=== PATIENT | female | born 1940 | race Caucasian/White ===

== ENCOUNTER 2019-05-20 11:45 | Outpatient (RCR) | payer SELFPAY | END 2019-06-12 23:59 | disposition home or self-care (01) | LOC: CR 11:45 | PROVIDERS: Family Provider Family Medicine; PCP Family Medicine; Referring Provider Internal Medicine Cardiovascular Disease; Visit Provider Internal Medicine Cardiovascular Disease | DX: Z76.89 Persons encountering health services in other specified circumstances (principal) ==

== ENCOUNTER 2019-12-02 08:19 | Emergency (ER) | payer MEDICARE, OTHER, SELFPAY ==
[2019-12-02 08:23] VITALS: BP 135/90; PULSE 96; RESP 18; TEMP 36.9; O2SAT 96; BMI 25.8
--- NOTE | 2019-12-02 08:25 | ED_ITS ---
HPI - Nausea/Vomiting/Diarrhea General: Chief complaint: Nausea/Vomiting/Diarrhea Stated complaint: NAUSEA Time Seen by Provider: 12/02/19 08:23 Source: patient Mode of arrival: wheelchair Limitations: no limitations History of Present Illness: HPI Narrative: Patient is a 79-year-old female here with a complaint of nausea over the past 3 to 4 days. Patient tells me she was initially placed on atorvastatin back in August. She tells me after starting this medication she began having symptoms of nausea and diarrhea so she stopped this medication on her own. Patient tells me recently they refilled this medication and she decided to try it again so began taking it again a few days ago. She tells me her same symptoms of nausea and diarrhea have returned. She is also complaining of shortness of breath with exertion that she has noticed over the last few days as well as shortness of breath with lying flat. Patient does have a history of nonischemic cardiomyopathy. She was recently seen by her environmental resource specialist Dr. Vergara in September for similar symptoms. Patient's last echocardiogram was performed in September 2018 which showed an increase in her EF from 15 to 37% MD elicited complaint: nausea Associated nausea: Yes Associated symtoms: Reports nausea; Denies change in vision, chest pain, dysuria, headache(s), palpitations or syncope Review of Systems Const: Denies: fever(s), chills or body aches Eyes: Denies: change in vision or blurry vision Card: Reports: dyspnea on exertion and orthopnea; Denies: chest pain, palpitations, irregular heart rhythm, edema, swelling of feet/ankles, lightheadedness, syncope, pre-syncope, leg pain with exertion or acrocyanosis Resp: Reports: dyspnea (with exertion ); Denies: productive cough, non-productive cough, pain on inspiration, hemoptysis or chest congestion GI: Reports: nausea and diarrhea; Denies: abdominal pain, vomiting, hematemesis, coffee ground emesis, dysphagia, heartburn, early satiety, pain on defecation, change in stool character, hematochezia, melena or white/light colored stool : Denies: flank pain, difficulty voiding, dysuria, urinary frequency, urinary urgency or urinary hesitancy Musc: Denies: neck pain, back pain or joint pain Skin/Breast: Denies: rash Neuro: Denies: headache(s), numbness in extremities, weakness in extremities or sensory changes PFSH ED PFSH: Medical History (Updated 12/02/19 @ 10:49 by SAMANTA Rivas) Dilated cardiomyopathy Hypotension Family History Other Diabetes Stroke Social History Smoking and tobacco status: never smoked Alcohol intake: never Physical Exam Const: COMMON NORMALS: no acute distress, patient oriented x3, no limitations, alert and well nourished HENMT: COMMON NORMALS: normocephalic and atraumatic HEAD & SCALP: normocephalic and atraumatic Chest: COMMONS NORMALS: normal inspection of the chest and normal palpation of entire chest wall Resp: COMMON NORMALS: normal respiratory effort and clear to auscultation bilaterally AUSCULTATION: clear to auscultation bilaterally Cardio: COMMON NORMALS: regular rate and regular rhythm RATE: regular rate RHYTHM: regular rhythm GI: COMMON NORMALS: Normal to inspection, nondistended, normoactive bowel sounds present, Soft to palpation, No hepatosplenomegaly present and no masses PALPATION: Yes Soft to palpation, Yes Tenderness to palpation present (GI) (mild epigastric ) and Yes No hepatosplenomegaly present Extremity: COMMON NORMALS: capillary refill normal, no clubbing, cyanosis or edema and no calf tenderness Neuro: COMMON NORMALS: patient oriented x3 SENSORIUM/ORIENTATION: Yes alert Skin: COMMON NORMALS: no rashes or lesions noted GENERAL SKIN EXAM: no rashes or lesions noted Course Vital Signs: Vital signs: Vital Signs Temperature 98.4 F 12/02/19 08:23 Pulse Rate 96 12/02/19 08:23 Respiratory Rate 18 12/02/19 08:23 Blood Pressure 135/90 12/02/19 08:23 Pulse Oximetry 96 12/02/19 08:23 MDM - Nausea/Vomiting/Diarrhea MDM Narrative: Medical decision making narrative: Patient reports her nausea is completely alleviated after IV Zofran. She is lying almost completely flat in her room in no acute distress. Patient's labs today overall look fairly benign apart from her BNP at 5656 which is much higher than her baseline which is roughly 8504-[address]. Sp[address]. Back and we will treat patient with 40 mg IV Lasix here and increase her daily Lasix and potassium at home over the next 3 days. She needs to follow-up with Dr. Vergara's office by the end of the week or early next week. She also needs to speak to them about her side effects from the atorvastatin of nausea and diarrhea. Unfortunately these are common side effects of this medication. Lab Data: Labs: Lab Results 12/02/19 12/02/19 12/02/19 Range/Units 08:38 08:38 08:38 WBC 8.6 (4.0-10.0) 10^3/ uL RBC 4.47 (4.1-5.3) 10^6/u L Hgb 12.7 (11.5-15.3) g/dL Hct 38.9 (37.0-47.0) % MCV 87.0 (81-99) fL MCH 28.4 (28.0-34.0) pg MCHC 32.6 (30.0-36.0) g/dL RDW 14.9 (12.1-15.1) % Plt Count 305 (130-400) 10^3/c mm MPV 9.9 (7.4-10.4) fL Neut % (Auto) 77.9 % Lymph % (Auto) 12.9 % [place] % (Auto) 5.3 % Eos % (Auto) 2.9 % Baso % (Auto) 0.7 % Neut # (Auto) 6.69 (1.8-7.7) 10^3/u L Lymph # (Auto) 1.1 (0.8-4.8) 10^3/u L [place] # (Auto) 0.5 (0.2-0.9) 10^3/u L Eos # (Auto) 0.3 (0.0-0.8) 10^3/u L Baso # (Auto) 0.1 (0.0-0.1) 10^3/u L Nucleated RBC % (a uto) 0 % Nucleated RBCs # 0.0 /100WBC Sodium 134 L (136-145) mmol/L Potassium 4.4 (3.5-5.1) mmol/L Chloride 99 (98-107) mmol/L Carbon Dioxide 21 L (22-29) mmol/L Anion Gap 18.4 (5-19) BUN 20 (8-23) mg/dL Creatinine 0.9 (0.5-0.9) mg/dL GFR Calculation Not Reportable Glucose 165 H (65-115) mg/dL Calculated Osmolal ity 278 L (285-295) mOsm/k g Calcium 9.2 (8.5-10.5) mg/dL Total Bilirubin 0.9 (0.15-1.2) mg/dL AST 30 (0-32) U/L ALT 26 (0-33) U/L Alkaline Phosphata se 96 (35-105) IU/L Troponin T Baselin e 9 (0-10) ng/L Troponin T 120 Min [place] (0-10) ng/L Delta Troponin T (0-10) ABS# NT-Pro-B Natriuret Pep 5656 H (0-450) pg/mL Total Protein 7.5 (6.6-8.7) g/dL Albumin 4.4 (3.5-5.2) g/dL Globulin 3.1 (1.3-4.6) g/dL Lipase 29 (13-60) U/L 12/02/19 Range/Units 10:30 WBC (4.0-10.0) 10^3/ uL RBC (4.1-5.3) 10^6/u L Hgb (11.5-15.3) g/dL Hct (37.0-47.0) % MCV (81-99) fL MCH (28.0-34.0) pg MCHC (30.0-36.0) g/dL RDW (12.1-15.1) % Plt Count (130-400) 10^3/c mm MPV (7.4-10.4) fL Neut % (Auto) % Lymph % (Auto) % [place] % (Auto) % Eos % (Auto) % Baso % (Auto) % Neut # (Auto) (1.8-7.7) 10^3/u L Lymph # (Auto) (0.8-4.8) 10^3/u L [place] # (Auto) (0.2-0.9) 10^3/u L Eos # (Auto) (0.0-0.8) 10^3/u L Baso # (Auto) (0.0-0.1) 10^3/u L Nucleated RBC % (a uto) % Nucleated RBCs # /100WBC Sodium (136-145) mmol/L Potassium (3.5-5.1) mmol/L Chloride (98-107) mmol/L Carbon Dioxide (22-29) mmol/L Anion Gap (5-19) BUN (8-23) mg/dL Creatinine (0.5-0.9) mg/dL GFR Calculation Glucose (65-115) mg/dL Calculated Osmolal ity (285-295) mOsm/k g Calcium (8.5-10.5) mg/dL Total Bilirubin (0.15-1.2) mg/dL AST (0-32) U/L ALT (0-33) U/L Alkaline Phosphata se (35-105) IU/L Troponin T Baselin e (0-10) ng/L Troponin T 120 Min [place] 8.80 (0-10) ng/L Delta Troponin T -0.20 L (0-10) ABS# NT-Pro-B Natriuret Pep (0-450) pg/mL Total Protein (6.6-8.7) g/dL Albumin (3.5-5.2) g/dL Globulin (1.3-4.6) g/dL Lipase (13-60) U/L Imaging Data^: CXR: Radiologist's impression: [address] [address] XRay Report Signed Patient: Phuong Maya Unit #: [id number] : 1940 Age/Sex: 79 / F ADM Date: 12/02/19 Loc: ER Room/Bed: Attending Dr: Ordering Provider/Ordering MD: Peyton Taylor Date of Service: 12/02/19 Procedure(s): XR chest 1V portable [id number] Accession Number(s): [id number] Report Number: [id number] WS: [id number] PORTABLE CHEST HISTORY: chest pain COMPARISON: 08/29/2018 Moderate pulmonary hyperexpansion. Coarse thickened interstitial markings throughout both lungs. Stable RIGHT upper lobe benign granuloma. No pleural effusion or pneumothorax. Cardiac size: Mildly enlarged cardiac silhouette. Mediastinum/Aorta: Mild atherosclerosis aorta. Osteopenia. XR/XR chest 1V portable [id number] IMPRESSION: 1. Chronic emphysema with new superimposed interstitial thickening. Probably pneumonitis or mild CHF. 2. Mild cardiomegaly. Dictated By: Clare Bustamante DO Signed By: Clare Bustamante DO Signed Date/Time: 12/02/19852 DD/ 0 Discharge Plan Discharge Patient Disposition: Home, Self-Care Clinical Impression: Acute on chronic systolic CHF (congestive heart failure) Condition: Stable Prescriptions: No Action furosemide 40 mg tablet 40 mg PO DAILY RF: 0 potassium chloride 10 mEq tablet extended release 10 meq PO DAILY RF: 0 levothyroxine 75 mcg tablet 75 mcg PO DAILY RF: 0 aspirin [Adult Low Dose Aspirin] 81 mg tablet,delayed release (DR/EC) 81 mg PO DAILY RF: 0 escitalopram oxalate 5 mg tablet 5 mg PO DAILY RF: 0 multivitamin Tablet 1 tab PO DAILY RF: 0 cholecalciferol (vitamin D3) 25 mcg (1,000 unit) capsule 25 mcg PO DAILY RF: 0 Probiotic 3 billion cell capsule 3,000 mmu cells PO DAILY RF: 0 magnesium oxide,aspartate,citr 400 mg magnesium capsule 400 mg PO BID RF: 0 cetirizine [Zyrtec] 10 mg tablet 10 mg PO DAILY RF: 0 Estroven 155 mg capsule 1 cap PO DAILY PRN (Reason: menopause) RF: 0 carvedilol 3.125 mg tablet 3.125 mg PO BID 90 Days Qty: 180 RF: 3 zinc 50 mg Tablet 50 mg PO DAILY RF: 0 Discharge Orders: Discharge Order (Routine); Ordered 12/02/19 Ordered By: Peyton Taylor Referrals: Camden Fletcher MD [Primary Care Provider] - Activity Restrictions/Additional Instructions: As discussed you need to take your Lasix 40 mg twice daily instead of daily over the next 3 days. You also need to be taking your potassium tablets twice daily as well x 3 days instead of one. Please contact Dr. Vergara's office as soon as possible for follow-up. We will also have our case sealer try to work on this appointment. You need to return to the emergency department for worsening shortness of breath, difficulty breathing, fevers, chest pains, any other concerns you may have. Coding Level of Care Code ED Copy Holder for Chg Fwd Exam Comprehensive
--- NOTE | 2019-12-02 08:35 | XR_ITS ---
WS: [id number] PORTABLE CHEST HISTORY: chest pain COMPARISON: 08/29/2018 Moderate pulmonary hyperexpansion. Coarse thickened interstitial markings throughout both lungs. Stab le RIGHT upper lobe benign granuloma. No pleural effusion or pneumothorax. Cardiac size: Mildly enlarged cardiac silhouette. Mediastinum/Aorta: Mild atherosclerosis aorta. Osteopenia. XR/XR chest 1V portable [id number] IMPRESSION: 1. Chronic emphysema with new superimposed interstitial thickening. Probably p neumonitis or mild CHF. 2. Mild cardiomegaly.
--- NOTE | 2019-12-02 08:35 | ECG_ITS ---
[facility] Test Date: 2019-12-02 Pat Name: Phuong Maya Department: Room: Gender: Female Auxiliary Equipment Operator: : 1940 Requested By: Peyton Taylor Order Number: [id number] Darnell MD: Macario Peraza M.D. Measurements Intervals [place] Rate: 84 P: 32 AL: 162 QRS: -39 QRSD: 158 T: 92 QT: 435 QTc: 515 Interpretive Statements ELECTRONIC VENTRICULAR PACEMAKER ABNORMAL RHYTHM ECG Compared to ECG 08/15/2018 04:35:33 Sinus rhythm no longer present Atrial abnormality no longer present Left-axis deviation no longer present Left bundle-branch block no longer present Electronically Signed On 12-02-2019 20:30:27 CDT by Macario Peraza M.D. [id number] ceron
[2019-12-02] MEDS: ondansetron 2 mg/ML SDV 2 mL 4 MG IVP (08:45)
[2019-12-02 08:46] LABS: Basophils # 0.1 10^3/uL (0.0-0.1); Basophils % 0.7 %; Eosinophils # 0.3 10^3/uL (0.0-0.8); Eosinophils % 2.9 %; Hematocrit 38.9 % (37.0-47.0); Hemoglobin 12.7 g/dL (11.5-15.3); Lymphocytes # 1.1 10^3/uL (0.8-4.8); Lymphocytes % 12.9 %; Mean Corpuscular HGB Conc 32.6 g/dL (30.0-36.0); Mean Corpuscular Hemoglobin 28.4 pg (28.0-34.0); Mean Platelet Volume 9.9 fL (7.4-10.4); Monocytes # 0.5 10^3/uL (0.2-0.9); Monocytes % 5.3 %; Neutrophils # 6.69 10^3/uL (1.8-7.7); Neutrophils % 77.9 %; Nucleated Red Blood Cells % 0 %; Platelet Count 305 10^3/cmm (130-400); Red Blood Count 4.47 10^6/uL (4.1-5.3); Red Cell Distribution Width 14.9 % (12.1-15.1); White Blood Count 8.6 10^3/uL (4.0-10.0)
[2019-12-02 09:05] LABS: Troponin(5th) Baseline 9 ng/L (0-10)
[2019-12-02 09:15] LABS: Alanine Aminotransferase 26 U/L (0-33); Albumin Level 4.4 g/dL (3.5-5.2); Alkaline Phosphatase 96 IU/L (35-105); Anion Gap 18.4 (5-19); Aspartate Amino Transferase 30 U/L (0-32); Blood Urea Nitrogen 20 mg/dL (8-23); Calcium 9.2 mg/dL (8.5-10.5); Carbon Dioxide 21 mmol/L (22-29); Chloride 99 mmol/L (98-107); Creatinine Clr Calc Pharmacy 47.8724; Globulin 3.1 g/dL (1.3-4.6); Glucose 165 mg/dL (65-115); Lipase 29 U/L (13-60); NT Pro B Type Natriuretic Pept 5656 pg/mL (0-450); Osmolality Calculated 278 mOsm/kg (285-295); Potassium 4.4 mmol/L (3.5-5.1); Sodium 134 mmol/L (136-145); Total Bilirubin 0.9 mg/dL (0.15-1.2); Total Protein 7.5 g/dL (6.6-8.7)
[2019-12-02] MEDS: FUROsemide 10 mg/mL SDV 4mL 40 MG IVP (10:56)
--- NOTE | 2019-12-02 11:03 | DCPLANNER ---
manager heavy duty was asked to schedule a follow up appointment for patient with [facility]. manager heavy duty called [facility], spoke with Stacey, a follow up appointment was scheduled for , December 03, 2019 at 2:[address] Vergara. manager heavy duty informed patient of the scheduled appointment.
[2019-12-02 11:10] VITALS: BP 109/66; PULSE 72; RESP 18; O2SAT 95
--- NOTE | 2019-12-04 08:02 | DCPLANNER ---
Patient did attend appointment scheduled for 12.03.19 with [facility].
== END 2019-12-02 11:11 | disposition home or self-care (01) ==
PROVIDERS: Emergency Provider Physician Assistant; PCP Family Medicine
DX: I11.0 Hypertensive heart disease with heart failure (principal); I50.23 Acute on chronic systolic (congestive) heart failure; Z79.82 Long term (current) use of aspirin; I70.0 Atherosclerosis of aorta
CPT/HCPCS: 12345; 36415; 71045; 80053; 83690; 83880; 84484; 85025; 93005; 96374; 96375; 99283; 99284; J1940; J2405

== ENCOUNTER 2019-12-06 06:20 | Emergency (ER) | payer MEDICARE, OTHER, SELFPAY ==
[2019-12-06 06:26] VITALS: BP 115/79; PULSE 86; RESP 16; TEMP 36.6; O2SAT 97; BMI 26.5
[2019-12-06 06:56] VITALS: BP 123/81; PULSE 84; RESP 18; O2SAT 96
--- NOTE | 2019-12-06 06:58 | CTR_ITS ---
PROCEDURE INFORMATION: Exam: CT Abdomen And Pelvis With Contrast Exam date and time: 12/06/2019 7:27 AM Age: 79 years old Clinical indication: Nausea and vomiting and other: Diarrhea; Prior surgery; Surgery date: 6+ months; Surgery type: Gb, appy, hyster; Additional info: Abd pain TECHNIQUE: Imaging protocol: Computed tomography of the abdomen and pelvis with intravenous contrast. Radiation optimization: All CT scans at this facility use at least one of these dose optimization techniques: automated exposure control; mA and/or kV adjustment per patient size (includes targeted exams where dose is matched to clinical indication); or iterative reconstruction. Contrast material: VISIPAQUE 320; Contrast volume: 95 ml; Contrast route: INTRAVENOUS (IV); COMPARISON: CT abdomen pelvis w con* [id number] 08/29/2018 7:10 AM RADIATION DOSE METRICS: Total DLP (mGy-cm): 587.57 FINDINGS: Pleural space: Small pleural effusions. Heart: Cardiomegaly. Mediastinal space: Small hiatal hernia. Liver: No mass. Hepatomegaly. Gallbladder and bile ducts: Status post cholecystectomy. Pancreas: No ductal dilation. Spleen: 12mm hypodensity in the spleen. Adrenals: No mass. Kidneys and ureters: No hydronephrosis. Stomach and bowel: Colonic diverticulosis without findings diverticulitis. Appendix: The appendix is not identified. Intraperitoneal space: Small amount of free fluid. Vasculature: No abdominal aortic aneurysm. Lymph nodes: No enlarged lymph nodes. Bladder: Unremarkable as visualized. Reproductive: Status post hysterectomy. Bones/joints: Unremarkable. No acute fracture. Soft tissues: Unremarkable. CT/CT abdomen pelvis w con* [id number] IMPRESSION: No acute findings. Radiation Dose CTDIVOL = (mGy): DLP = 587.57 (mGy-cm)
[2019-12-06 07:02] LABS: Basophils # 0.1 10^3/uL (0.0-0.1); Basophils % 0.7 %; Eosinophils # 0.3 10^3/uL (0.0-0.8); Eosinophils % 3.1 %; Hematocrit 39.4 % (37.0-47.0); Hemoglobin 12.8 g/dL (11.5-15.3); Lymphocytes # 1.1 10^3/uL (0.8-4.8); Lymphocytes % 13.2 %; Mean Corpuscular HGB Conc 32.5 g/dL (30.0-36.0); Mean Corpuscular Hemoglobin 28.5 pg (28.0-34.0); Mean Corpuscular Volume 87.8 fL (81-99); Mean Platelet Volume 10.7 fL (7.4-10.4); Monocytes # 0.4 10^3/uL (0.2-0.9); Neutrophils # 6.47 10^3/uL (1.8-7.7); Neutrophils % 77.8 %; Nucleated Red Blood Cells % 0 %; Platelet Count 351 10^3/cmm (130-400); Red Blood Count 4.49 10^6/uL (4.1-5.3); Red Cell Distribution Width 15.9 % (12.1-15.1); White Blood Count 8.3 10^3/uL (4.0-10.0)
[2019-12-06 07:18] VITALS: RESP 15
[2019-12-06] MEDS: lidocaine 2% viscous 15 ML, aluminum-mag hydrox-simethicon 30 ML, sucralfate oral liq 1 GM PO (07:18)
[2019-12-06] MEDS: morphine 4 mg/mL SDV 1 mL IVP (07:18)
[2019-12-06] MEDS: ondansetron 2 mg/ML SDV 2 mL 4 MG IVP (07:18)
[2019-12-06] MEDS: ketorolac 30 mg/mL INJ IVP (07:18)
[2019-12-06 07:21] LABS: Alanine Aminotransferase 32 U/L (0-33); Albumin Level 4.6 g/dL (3.5-5.2); Alkaline Phosphatase 88 IU/L (35-105); Anion Gap 17.9 (5-19); Aspartate Amino Transferase 27 U/L (0-32); Blood Urea Nitrogen 21 mg/dL (8-23); Calcium 9.8 mg/dL (8.5-10.5); Carbon Dioxide 24 mmol/L (22-29); Chloride 97 mmol/L (98-107); Globulin 2.4 g/dL (1.3-4.6); Glucose 142 mg/dL (65-115); Lipase 22 U/L (13-60); NT Pro B Type Natriuretic Pept 6103 pg/mL (0-450); Osmolality Calculated 279 mOsm/kg (285-295); Potassium 3.9 mmol/L (3.5-5.1); Sodium 135 mmol/L (136-145)
--- NOTE | 2019-12-06 07:34 | W.ED.NAVMDI ---
HPI - Nausea/Vomiting/Diarrhea General: Chief complaint: Nausea/Vomiting/Diarrhea Stated complaint: N/V Time Seen by Provider: 12/06/19 06:35 History of Present Illness: HPI Narrative: patient complains of nausea, vomiting, and diarrhea that has been going on for within 2 weeks. Also complains of midepigastric abdominal pain that radiates through to her back. MD elicited complaint: nausea, vomiting, diarrhea and abdominal pain Pertinent past history: abdominal surgery Onset (ago): week(s) Description of diarrhea: lose and pasty Associated nausea: Yes Associated abdominal pain: Yes Location of pain: Epigastric Radiation: other (back) Pain consistency: constant Severity: severe Quality: aching, dull and constant Exacerbating factors: eating Relieving factors: none Associated symtoms: Reports anorexia, malaise, myalgias and nausea Review of Systems General: Reports: 10 or more systems reviewed and unremarkable except in HPI and below Const: Reports: malaise GI: Reports: nausea PFSH ED PFSH: Medical History Dilated cardiomyopathy Hypotension Family History Other Diabetes Stroke Social History Smoking and tobacco status: never smoked Alcohol intake: never Physical Exam Const: COMMON NORMALS: patient oriented x3, no limitations and alert GENERAL APPEARANCE: in distress and ill appearing HENMT: COMMON NORMALS: normocephalic, atraumatic, external ears normal and Normal external nose present HEAD & SCALP: normocephalic and atraumatic FACE & SINUS: normal facial exam NOSE: Normal external nose present EXTERNAL EAR: Yes external ears normal MOUTH: Normal oral and palatal mucosa present Neck/C-Spine: COMMON NORMALS: full ROM, no lymphadenopathy, supple, no meningeal signs and no JVD GENERAL: Yes normal visual inspection Resp: COMMON NORMALS: normal respiratory effort, No retractions, No use of accessory muscles and clear to auscultation bilaterally AUSCULTATION: clear to auscultation bilaterally Cardio: COMMON NORMALS: no JVD, regular rate and regular rhythm RATE: regular rate RHYTHM: regular rhythm GI: COMMON NORMALS: Normal to inspection, nondistended, normoactive bowel sounds present, Soft to palpation, non-tender, No hepatosplenomegaly present and no masses INSPECTION: Yes normal to inspection AUSCULTATION: Yes normoactive bowel sounds PALPATION: Yes Soft to palpation and Yes No hepatosplenomegaly present PERCUSSION: normal to percussion : COMMON NORMALS: Yes no CVA tenderness and Yes normal external appearance BLADDER/KIDNEY EXAM: Yes no CVA tenderness Back/Pelvis: COMMON NORMALS: no CVA tenderness, thoracic and lumbar spine normal to inspection, no thoracic nor lumbar tenderness, thoraco-lumbar ROM normal and straight leg raise negative bilaterally Extremity: COMMON NORMALS: normal to inspection, full ROM, capillary refill normal, no joint enlargement, no clubbing, cyanosis or edema, no calf tenderness and no pedal edema Neuro: COMMON NORMALS: patient oriented x3, moves all extremities, no focal motor deficits and no sensory deficits noted SENSORIUM/ORIENTATION: Yes alert MENINGEAL SIGNS: Yes no meningeal signs Psych: COMMON NORMALS: mental status grossly normal, Normal thought process present, cooperative, normal affect and speech normal SPEECH: Yes normal speech THOUGHT PROCESS: Normal thought process present Skin: COMMON NORMALS: no rashes or lesions noted, no wounds, turgor normal, no jaundice, no petechiae and no mottling GENERAL SKIN EXAM: no rashes or lesions noted and turgor normal Course Vital Signs: Vital signs: Vital Signs Temperature 97.9 F 12/06/19 06:26 Pulse Rate 84 12/06/19 06:56 Respiratory Rate 15 12/06/19 07:18 Blood Pressure 123/81 12/06/19 06:56 Pulse Oximetry 96 12/06/19 06:56 MDM - Nausea/Vomiting/Diarrhea Lab Data: Labs: Lab Results 12/06/19 12/06/19 Range/Units 06:53 06:53 WBC 8.3 (4.0-10.0) 10^3/ uL RBC 4.49 (4.1-5.3) 10^6/u L Hgb 12.8 (11.5-15.3) g/dL Hct 39.4 (37.0-47.0) % MCV 87.8 (81-99) fL MCH 28.5 (28.0-34.0) pg MCHC 32.5 (30.0-36.0) g/dL RDW 15.9 H (12.1-15.1) % Plt Count 351 (130-400) 10^3/c mm MPV 10.7 H (7.4-10.4) fL Neut % (Auto) 77.8 % Lymph % (Auto) 13.2 % [place] % (Auto) 5.0 % Eos % (Auto) 3.1 % Baso % (Auto) 0.7 % Neut # (Auto) 6.47 (1.8-7.7) 10^3/u L Lymph # (Auto) 1.1 (0.8-4.8) 10^3/u L [place] # (Auto) 0.4 (0.2-0.9) 10^3/u L Eos # (Auto) 0.3 (0.0-0.8) 10^3/u L Baso # (Auto) 0.1 (0.0-0.1) 10^3/u L Nucleated RBC % (a uto) 0 % Nucleated RBCs # 0.0 /100WBC Sodium 135 L (136-145) mmol/L Potassium 3.9 (3.5-5.1) mmol/L Chloride 97 L (98-107) mmol/L Carbon Dioxide 24 (22-29) mmol/L Anion Gap 17.9 (5-19) BUN 21 (8-23) mg/dL Creatinine 1.1 H (0.5-0.9) mg/dL GFR Calculation Not Reportable Glucose 142 H (65-115) mg/dL Calculated Osmolal ity 279 L (285-295) mOsm/k g Calcium 9.8 (8.5-10.5) mg/dL Total Bilirubin 1.0 (0.15-1.2) mg/dL AST 27 (0-32) U/L ALT 32 (0-33) U/L Alkaline Phosphata se 88 (35-105) IU/L NT-Pro-B Natriuret Pep 6103 H (0-450) pg/mL Total Protein 7.0 (6.6-8.7) g/dL Albumin 4.6 (3.5-5.2) g/dL Globulin 2.4 (1.3-4.6) g/dL Lipase 22 (13-60) U/L Discharge Plan Discharge Patient Disposition: Home Clinical Impression: Gastritis Qualifiers: Gastritis type: other gastritis Chronicity: acute Gastritis bleeding: without bleeding Qualified Code(s): K29.00 - Acute gastritis without bleeding Condition: Stable Prescriptions: New Protonix 40 mg tablet,delayed release (DR/EC) 40 mg PO DAILY Qty: 30 RF: 0 Carafate 100 mg/mL suspension 1 gm PO Q6H Qty: 420 RF: 0 No Action furosemide 40 mg tablet 40 mg PO DAILY RF: 0 Hold Instructions: 2 days potassium chloride 10 mEq tablet extended release 10 meq PO DAILY RF: 0 levothyroxine 75 mcg tablet 75 mcg PO DAILY RF: 0 aspirin [Adult Low Dose Aspirin] 81 mg tablet,delayed release (DR/EC) 81 mg PO DAILY RF: 0 escitalopram oxalate 5 mg tablet 5 mg PO DAILY RF: 0 multivitamin Tablet 1 tab PO DAILY RF: 0 cholecalciferol (vitamin D3) 25 mcg (1,000 unit) capsule 25 mcg PO DAILY RF: 0 Probiotic 3 billion cell capsule 3,000 mmu cells PO DAILY RF: 0 magnesium oxide,aspartate,citr 400 mg magnesium capsule 400 mg PO BID RF: 0 cetirizine [Zyrtec] 10 mg tablet 10 mg PO DAILY RF: 0 carvedilol 3.125 mg tablet 3.125 mg PO BID 90 Days Qty: 180 RF: 3 Discharge Orders: Discharge Order (Routine); Ordered 12/06/19 Ordered By: Emiliano Hairston Referrals: Camden Fletcher MD [Primary Care Provider] - Coding Level of Care Code ED Filter Tank Operator for Chg Fwd Exam Comprehensive
[2019-12-06] MEDS: iodixanol 320 mg/mL 100mL Btl IV (07:37)
[2019-12-06 08:33] VITALS: BP 128/75; PULSE 70; RESP 15; O2SAT 98
[2019-12-06 08:35] LABS: Urine Appearance Clear (CLEAR); Urine Color Yellow (Yellow); pH Urine 5 (5-7)
[2019-12-06 08:36] LABS: Add Urine Microscopic? YES; Bacteria Urine TRACE; Bilirubin Urine 1+ (NEGATIVE); Blood Urine Neg (Negative); Glucose Urine UA Norm (Normal); Ketones Urine Negative (Negative); Leukocyte Esterase Urine Trace (Negative); Mucus Urine TRACE; Nitrate Urine Negative (Negative); Protein Urine 1+ (Negative); Squamous Epithelial Cell Urine 0-4 (0-5); Urobilinogen Urine 1 mg/dL (Negative); WBC Urine 0-4 /hpf (0-5)
[2019-12-06 08:37] LABS: Add Urine Culture? No
[2019-12-06 10:22] LABS: Lactate (Lactic Acid level) 2.1 mmol/L (0.5-2.2)
--- NOTE | 2019-12-06 10:37 | ECG_ITS ---
[facility] Test Date: 2019-12-06 Pat Name: Phuong Maya Department: Room: Gender: Female Engineering Supervisor: : 1940 Requested By: Emiliano Iyer Order Number: [id number] Darnell MD: Vero Zamorano M.D. Measurements Intervals [place] Rate: 86 P: 86 PA: 175 QRS: 269 QRSD: 157 T: 78 QT: 456 QTc: 546 Interpretive Statements SINUS RHYTHM INDETERMINATE AXIS INTRAVENTRICULAR CONDUCTION DELAY [130+ ms QRS DURATION] Compared to ECG 12/02/2019 08:54:34 Indeterminate axis now present Intraventricular conduction delay now present Ventricular-paced complex(es) or rhythm no longer present Electronically Signed On 12-06-2019 12:48:58 CDT by Vero Zamorano M.D. [id number] f
== END 2019-12-06 08:34 | disposition home or self-care (01) ==
PROVIDERS: Emergency Provider Family Medicine; PCP Family Medicine
DX: K29.00 Acute gastritis without bleeding (principal); Z79.82 Long term (current) use of aspirin
CPT/HCPCS: 12345; 74177; 80053; 81001; 81003; 83605; 83690; 83880; 85025; 93005; 96374; 96375; 99283; J1885; J2270; J2405; Q9967

== ENCOUNTER 2019-12-11 00:33 | Emergency (ER) | payer MEDICARE, OTHER, SELFPAY ==
[2019-12-11 00:34] VITALS: BP 149/77; PULSE 81; RESP 16; TEMP 36.7; O2SAT 90; BMI 26.4
--- NOTE | 2019-12-11 00:35 | ECG_ITS ---
[facility] Test Date: 2019-12-11 Pat Name: Phuong Maya Department: Room: Gender: Female Sales Account Representative: : 1940 Requested By: Davon Whitaker Order Number: [id number] Darnell MD: Camron Olson M.D. Measurements Intervals [place] Rate: 76 P: 42 SC: 171 QRS: -46 QRSD: 166 T: 97 QT: 465 QTc: 525 Interpretive Statements ELECTRONIC VENTRICULAR PACEMAKER ABNORMAL RHYTHM ECG Compared to ECG 12/06/2019 06:53:12 Sinus rhythm no longer present Indeterminate axis no longer present Intraventricular conduction delay no longer present Electronically Signed On 12-11-2019 16:03:20 CDT by Camron Olson M.D. [id number]
--- NOTE | 2019-12-11 00:37 | XRR_ITS ---
PROCEDURE INFORMATION: Exam: XR Chest, 1 View Exam date and time: 12/11/2019 1:10 AM Age: 79 years old Clinical indication: Cough and shortness of breath; Chest pain; Type not specified; Patient HX: SOB and cough noted; Additional info: Cpx 2weeks TECHNIQUE: Imaging protocol: XR of the chest Views: 1 view. COMPARISON: CR XR chest 1V portable [id number] 12/02/2019 8:53 AM FINDINGS: Lungs: Areas of interstitial thickening of the lower lungs. Suspected bilateral calcified granulomata. Accentuation of main central pulmonary vasculature suggesting pulmonary arterial hypertension. Low-grade interstitial vascular congestion. Pleural space: Unremarkable. No pleural effusion. No pneumothorax. Heart/Mediastinum: Cardiomegaly. Vasculature: Tortuous thoracic aorta. Bones/joints: Osteopenia. XR/XR chest 1V portable [id number] IMPRESSION: Stable chest without interval change. Low-grade pulmonary venous congestion versus component of chronic interstitial thickening.
--- NOTE | 2019-12-11 00:38 | W.ED.CHESTPA ---
HPI - Chest Pain General: Chief Complaint: Chest Pain Stated Complaint: CHEST PAIN/ NAUSEA Time Seen by Provider: 12/11/19 00:36 Source: patient and EMS Mode of arrival: EMS Limitations: no limitations History of Present Illness: HPI narrative: 79-year-old female who has a history of congestive heart failure states she has been having epigastric normal pain and chest pain over the last 2 weeks. Patient is been seen multiple times for this. States tonight the pain started again she had nausea. She received IV Zofran and nitro in route and no longer has any pain. She denies any worsening or improving factors. MD complaint: chest pain Associated symptoms: Deny abdominal pain, dyspnea, fever(s), nausea or vomiting Review of Systems Const: Denies: fever(s), chills, body aches or change in appetite Eyes: Denies: blurry vision or eye discomfort ENMT: Denies: throat pain or dental pain Card: Reports: chest pain Resp: Denies: dyspnea GI: Denies: abdominal pain, nausea, vomiting or diarrhea : Denies: dysuria Musc: Denies: neck pain or back pain Skin/Breast: Denies: rash Neuro: Denies: headache(s) Psych: Denies: depression Phu/Lymph: Denies: easy bruising All/Imm: Denies: urticaria PFSH ED PFSH: Medical History Dilated cardiomyopathy Hypotension Family History Other Diabetes Stroke Social History Smoking and tobacco status: never smoked Alcohol intake: never Physical Exam Const: COMMON NORMALS: no acute distress, patient oriented x3 and healthy appearing HENMT: COMMON NORMALS: normocephalic and atraumatic HEAD & SCALP: normocephalic and atraumatic Eye: COMMON NORMALS: Equal, round and reactive pupils present and EOMs intact bilaterally PUPIL: Yes Equal, round and reactive pupils present Neck/C-Spine: COMMON NORMALS: full ROM and supple Chest: COMMONS NORMALS: normal inspection of the chest and normal palpation of entire chest wall Resp: COMMON NORMALS: normal respiratory effort, No retractions, No use of accessory muscles and clear to auscultation bilaterally AUSCULTATION: clear to auscultation bilaterally Cardio: COMMON NORMALS: regular rate, regular rhythm and No murmurs present (Cardio) RATE: regular rate RHYTHM: regular rhythm GI: COMMON NORMALS: Normal to inspection, nondistended, normoactive bowel sounds present, Soft to palpation, non-tender and no masses PALPATION: Yes Soft to palpation Extremity: COMMON NORMALS: normal to inspection and full ROM Neuro: COMMON NORMALS: patient oriented x3, moves all extremities and no focal motor deficits Psych: COMMON NORMALS: mental status grossly normal, Normal thought process present and cooperative THOUGHT PROCESS: Normal thought process present Skin: COMMON NORMALS: no rashes or lesions noted and no wounds GENERAL SKIN EXAM: no rashes or lesions noted Course Vital Signs: Vital signs: Vital Signs Temperature 98.0 F 12/11/19 00:34 Pulse Rate 75 12/11/19 02:58 Respiratory Rate 20 H 12/11/19 02:58 Blood Pressure 105/62 12/11/19 02:58 Pulse Oximetry 97 12/11/19 02:58 MDM - Chest Pain MDM Narrative: Medical decision making narrative: Phuong presents here with chest pain and initial repeat troponin here negative. Patient had a recent CT of her abdomen is negative. Patient has no signs of pulmonary embolism. She is to follow-up with her primary care doctor as scheduled next Saturday. She is return if worsening. Her lab work here is normal abdominal exam is benign at discharge. She is pain-free at discharge. Lab Data: Labs: Lab Results 12/11/19 12/11/19 12/11/19 Range/Units 00:45 00:45 00:45 WBC 8.0 (4.0-10.0) 10^3/ uL RBC 4.13 (4.1-5.3) 10^6/u L Hgb 12.2 (11.5-15.3) g/dL Hct 38.0 (37.0-47.0) % MCV 92.0 (81-99) fL MCH 29.5 (28.0-34.0) pg MCHC 32.1 (30.0-36.0) g/dL RDW 18.1 H (12.1-15.1) % Plt Count 274 (130-400) 10^3/c mm MPV 10.4 (7.4-10.4) fL Neut % (Auto) 76.8 % Lymph % (Auto) 12.4 % [place] % (Auto) 7.4 % Eos % (Auto) 2.4 % Baso % (Auto) 0.5 % Neut # (Auto) 6.14 (1.8-7.7) 10^3/u L Lymph # (Auto) 1.0 (0.8-4.8) 10^3/u L [place] # (Auto) 0.6 (0.2-0.9) 10^3/u L Eos # (Auto) 0.2 (0.0-0.8) 10^3/u L Baso # (Auto) 0.0 (0.0-0.1) 10^3/u L Nucleated RBC % (a uto) 0 % Nucleated RBCs # 0.0 /100WBC Sodium 139 (136-145) mmol/L Potassium 4.1 (3.5-5.1) mmol/L Chloride 104 (98-107) mmol/L Carbon Dioxide 24 (22-29) mmol/L Anion Gap 15.1 (5-19) BUN 21 (8-23) mg/dL Creatinine 1.2 H (0.5-0.9) mg/dL GFR Calculation Not Reportable Glucose 145 H (65-115) mg/dL Calculated Osmolal ity 287 (285-295) mOsm/k g Calcium 8.5 (8.5-10.5) mg/dL Total Bilirubin 1.0 (0.15-1.2) mg/dL AST 53 H (0-32) U/L ALT 65 H (0-33) U/L Alkaline Phosphata se 72 (35-105) IU/L Troponin T Baselin e 10 (0-10) ng/L Troponin T 120 Min [place] (0-10) ng/L Delta Troponin T (0-10) ABS# Total Protein 6.3 L (6.6-8.7) g/dL Albumin 3.9 (3.5-5.2) g/dL Globulin 2.4 (1.3-4.6) g/dL Lipase 28 (13-60) U/L // Range/Units 02:56 WBC (4.0-10.0) 10^3/ uL RBC (4.1-5.3) 10^6/u L Hgb (11.5-15.3) g/dL Hct (37.0-47.0) % MCV (81-99) fL MCH (28.0-34.0) pg MCHC (30.0-36.0) g/dL RDW (12.1-15.1) % Plt Count (130-400) 10^3/c mm MPV (7.4-10.4) fL Neut % (Auto) % Lymph % (Auto) % [place] % (Auto) % Eos % (Auto) % Baso % (Auto) % Neut # (Auto) (1.8-7.7) 10^3/u L Lymph # (Auto) (0.8-4.8) 10^3/u L [place] # (Auto) (0.2-0.9) 10^3/u L Eos # (Auto) (0.0-0.8) 10^3/u L Baso # (Auto) (0.0-0.1) 10^3/u L Nucleated RBC % (a uto) % Nucleated RBCs # /100WBC Sodium (136-145) mmol/L Potassium (3.5-5.1) mmol/L Chloride (98-107) mmol/L Carbon Dioxide (22-29) mmol/L Anion Gap (5-19) BUN (8-23) mg/dL Creatinine (0.5-0.9) mg/dL GFR Calculation Glucose (65-115) mg/dL Calculated Osmolal ity (285-295) mOsm/k g Calcium (8.5-10.5) mg/dL Total Bilirubin (0.15-1.2) mg/dL AST (0-32) U/L ALT (0-33) U/L Alkaline Phosphata se (35-105) IU/L Troponin T Baselin e (0-10) ng/L Troponin T 120 Min [place] 9.44 (0-10) ng/L Delta Troponin T -0.56 L (0-10) ABS# Total Protein (6.6-8.7) g/dL Albumin (3.5-5.2) g/dL Globulin (1.3-4.6) g/dL Lipase (13-60) U/L Imaging Data^: CXR: Attestation: I personally reviewed and interpreted this imaging study as follows: My impression: no acute findings EKG Data^: EKG 1: Attestation: I personally reviewed and interpreted this EKG as follows: EKG interpretation date: 12/11/19 EKG interpretation time: 00:40 Interpretation: paced rhythm hr [address] or t wave abnormalities qrs 166 qtc 496 EKG 2: Attestation: I personally reviewed and interpreted this EKG as follows: EKG interpretation date: 12/11/19 EKG interpretation time: 02:39 Interpretation: nsr hr [address] or t wave abnormalities qrs 161 qtc 500 Discharge Plan Discharge Patient Disposition: Home Clinical Impression: Chest pain Qualifiers: Chest pain type: unspecified Qualified Code(s): R07.9 - Chest pain, unspecified Condition: Stable Prescriptions: No Action furosemide 40 mg tablet 40 mg PO DAILY RF: 0 Hold Instructions: 2 days levothyroxine 75 mcg tablet 75 mcg PO DAILY RF: 0 aspirin [Adult Low Dose Aspirin] 81 mg tablet,delayed release (DR/EC) 81 mg PO DAILY RF: 0 escitalopram oxalate 5 mg tablet 5 mg PO DAILY RF: 0 multivitamin Tablet 1 tab PO DAILY RF: 0 cholecalciferol (vitamin D3) 25 mcg (1,000 unit) capsule 25 mcg PO DAILY RF: 0 Probiotic 3 billion cell capsule 3,000 mmu cells PO DAILY RF: 0 magnesium oxide,aspartate,citr 400 mg magnesium capsule 400 mg PO BID RF: 0 cetirizine [Zyrtec] 10 mg tablet 10 mg PO DAILY RF: 0 carvedilol 3.125 mg tablet 3.125 mg PO BID 90 Days Qty: 180 RF: 3 potassium chloride 10 mEq tablet extended release 10 meq PO DIRECTED Qty: 270 RF: 3 Protonix 40 mg tablet,delayed release (DR/EC) 40 mg PO DAILY Qty: 30 RF: 0 Carafate 100 mg/mL suspension 1 gm PO Q6H Qty: 420 RF: 0 ondansetron 4 mg tablet,disintegrating 4 mg PO Q6H PRN (Reason: nausea and vomiting) Qty: 10 RF: 1 Discharge Orders: Discharge Order (Routine); Ordered 12/11/19 Ordered By: Davon Whitaker Referrals: Camden Fletcher MD [Primary Care Provider] - 1-3 days Discharge Diet: Advance as tolerated Discharge Activity: Resume usual activity Patient Instructions: Chest Pain (ED) Coding Level of Care Code ED Senior Policy Analyst for Chg Fwd Exam Comprehensive
[2019-12-11 00:44] VITALS: BP 149/77; PULSE 82; RESP 19; O2SAT 93
[2019-12-11 01:04] LABS: Basophils % 0.5 %; Eosinophils # 0.2 10^3/uL (0.0-0.8); Eosinophils % 2.4 %; Hemoglobin 12.2 g/dL (11.5-15.3); Lymphocytes % 12.4 %; Mean Corpuscular HGB Conc 32.1 g/dL (30.0-36.0); Mean Corpuscular Hemoglobin 29.5 pg (28.0-34.0); Mean Platelet Volume 10.4 fL (7.4-10.4); Monocytes # 0.6 10^3/uL (0.2-0.9); Monocytes % 7.4 %; Neutrophils # 6.14 10^3/uL (1.8-7.7); Neutrophils % 76.8 %; Nucleated Red Blood Cells % 0 %; Platelet Count 274 10^3/cmm (130-400); Red Blood Count 4.13 10^6/uL (4.1-5.3); Red Cell Distribution Width 18.1 % (12.1-15.1)
[2019-12-11 01:09] LABS: Alanine Aminotransferase 65 U/L (0-33); Albumin Level 3.9 g/dL (3.5-5.2); Alkaline Phosphatase 72 IU/L (35-105); Anion Gap 15.1 (5-19); Aspartate Amino Transferase 53 U/L (0-32); Blood Urea Nitrogen 21 mg/dL (8-23); Calcium 8.5 mg/dL (8.5-10.5); Carbon Dioxide 24 mmol/L (22-29); Chloride 104 mmol/L (98-107); Globulin 2.4 g/dL (1.3-4.6); Glucose 145 mg/dL (65-115); Lipase 28 U/L (13-60); Osmolality Calculated 287 mOsm/kg (285-295); Potassium 4.1 mmol/L (3.5-5.1); Sodium 139 mmol/L (136-145); Total Protein 6.3 g/dL (6.6-8.7)
[2019-12-11 01:11] LABS: Troponin(5th) Baseline 10 ng/L (0-10)
[2019-12-11 01:28] VITALS: BP 98/60; PULSE 78; RESP 15; O2SAT 93
[2019-12-11 02:20] VITALS: BP 94/60; PULSE 82; RESP 12; O2SAT 98
--- NOTE | 2019-12-11 02:37 | ECG_ITS ---
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 Measurements Intervals [place] Rate: 78 P: 48 [place]: 173 QRS: -53 QRSD: 161 T: 83 QT: 467 QTc: 533 Interpretive Statements SINUS RHYTHM POSSIBLE LEFT ATRIAL ENLARGEMENT [-0.1mV P WAVE IN V1/V2] LEFT AXIS DEVIATION [QRS AXIS < -30] LEFT BUNDLE BRANCH BLOCK [120+ ms QRS DURATION, 80+ ms Q/S IN V1/V2, 85+ ms R IN I/aVL/V5/V6] Compared to ECG 12/11/2019 00:40:05 Left-axis deviation now present Left bundle-branch block now present Ventricular-paced complex(es) or rhythm no longer present Electronically Signed On 12-11-2019 16:16:24 CDT by Camron Olson M.D. [id number]
[2019-12-11 02:58] VITALS: BP 105/62; PULSE 75; RESP 20; O2SAT 97
[2019-12-11 03:17] LABS: Troponin 5 2HR 9.44 ng/L (0-10)
[2019-12-11 03:19] LABS: Troponin 5 2HR Delta -0.56 ABS# (0-10)
== END 2019-12-11 03:46 | disposition home or self-care (01) ==
PROVIDERS: Emergency Provider Emergency Medicine; PCP Family Medicine
DX: R07.9 Chest pain, unspecified (principal); Z79.82 Long term (current) use of aspirin
CPT/HCPCS: 12345; 71045; 80053; 83690; 84484; 85025; 93005; 99283; 99284

== ENCOUNTER 2019-12-15 05:21 | Inpatient (IN) | payer MEDICARE, OTHER, SELFPAY ==
[2019-12-15] VITALS (13 sets, daily range): BP systolic 92–131; BP diastolic 50–81; PULSE 76–89; RESP 15–22; TEMP 35.9–36.9; O2SAT 93–979; BMI 26.4
--- NOTE | 2019-12-15 06:17 | XR_ITS ---
WS: [id number] PORTABLE CHEST HISTORY: dyspnea/cough COMPARISON: 12/11/2019 Mild pulmonary congestion is similar to the prior study. Linear area of scarring in the lingula. Rick gn granuloma RIGHT upper lobe. No pleural effusion or pneumothorax. Cardiac size: Mildly enlarged cardiac silhouette. Mediastinum/Aorta: Mild atherosclerosis aorta. Mildly dilated pulmonary arteries. No osseous abnormality seen. XR/XR chest 1V portable [id number] IMPRESSION: 1. Very mild pulmonary edema similar to the prior study. 2. Pulmonary hypertension. 3. No pneumonia.
--- NOTE | 2019-12-15 06:18 | ECG_ITS ---
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 Measurements Intervals [place] Rate: 81 P: 43 [place]: 181 QRS: -37 QRSD: 162 T: 71 QT: 456 QTc: 531 Interpretive Statements SINUS RHYTHM POSSIBLE LEFT ATRIAL ENLARGEMENT [-0.1mV P WAVE IN V1/V2] LEFT AXIS DEVIATION [QRS AXIS < -30] LEFT BUNDLE BRANCH BLOCK Compared to ECG 12/11/2019 02:39:12 No significant changes Electronically Signed On 12-15-2019 12:43:09 CDT by Veor Zamorano M.D. [id number]
--- NOTE | 2019-12-15 06:18 | CT_ITS ---
WS: [id number] CT ABDOMEN AND PELVIS WITH CONTRAST HISTORY: Persistent pelvic and abdominal pain. Prior hysterectomy, cholecystectomy and hysterectomy. TECHNIQUE: Imaging performed of the abdomen and pelvis with IV contrast. Single phase imaging of the abdomen. Coronal and sagittal reformats are submitted. All CT scans at [facility] use at least one of these dose optimization techniques: automated exposure control; mA and/or kV adjustment per patient size (includes targeted exams where dose is matched to clinical indication); or iterativ e reconstruction. IV CONTRAST: Visipaque 320; 95 mL IV. Oral contrast: No DLP: 1549.61 mGy.cm COMPARISON: 12/06/2019 Lower thorax: Small bilateral pleural effusions were seen on the prior examination also. Minimal incr ease in size. Compressive atelectasis at the lung bases. Moderate to severe cardiomegaly. No hiatal h ernia. Liver/biliary system: Liver is slightly enlarged with decreased attenuation. Areas of fatty sparing a long the falciform ligament. No bile duct dilatation or mass. Gallbladder: Status post cholecystectomy. Pancreas: Normal. Spleen: Normal size spleen. Hypodense 12 mm nodule in the superior spleen is stable since 08/29/2018 a nd probably benign cyst or hemangioma. Adrenal glands: Normal. Right kidney: Normal. Left kidney: Scattered hypodensities are too small to characterize. The largest in the lower pole liseth sures 13 mm and most likely a cyst. Aorta: Mild atherosclerosis with no aneurysm. Lymphadenopathy: There are small shoddy retroperitoneal lymph nodes. There is a low-attenuation area in the posterior superior RIGHT retrocrural space which may be fluid. This has fluid signal. Free fluid: There is a small amount of ascites. There is a small amount of fluid around the liver, sp marlon and extending along the paracolic gutters into the dependent portion of the pelvis. The amount o f ascites has slightly increased since 12/06/2019. GI tract: No GI tract obstruction. Prior appendectomy. Numerous diverticula throughout the colon. Gre atest in the descending and sigmoid colon. There is a loop of small bowel in the mid and LEFT lower q uadrant which is mildly hyperemic with mucosal thickening and edema. No dilatation. Abdominal wall: Small fat-containing umbilical hernia. Mild anasarca. Pelvis: Well-distended urinary bladder. Bones: Osteopenia with no destructive bone lesions. CT/CT abdomen pelvis w con* [id number] IMPRESSION: 1. Small amount of ascites which has increased since 12/06/2019. 2. Focal loop of enteritis in the LEFT lower quadrant. Mild hyperemia and mango a is new since 12/06/2019. 3. Small bilateral pleural effusions which have also very slightly increased s nancy the prior study. 4. Marked cardiomegaly. 5. Enlarged liver and findings likely due to passive hepatic congestion. 6. Diverticulosis without acute diverticulitis. 7. Prior cholecystectomy and and appendectomy.
--- NOTE | 2019-12-15 06:19 | W.ED.GENADLT ---
HPI - General Adult General: Chief complaint: General Medical Stated complaint: MULTIPLE COMPLAINTS Time Seen by Provider: 12/15/19 06:14 History of Present Illness: HPI narrative: 79-year-old female with multiple complaints. The majority of her complaints are actually 3 to 4 weeks old and are chronic in nature. They will seem to be centered around the fact that different things keep her from sleeping and feels like she cannot get better if she cannot sleep. It is difficult to get her to focus on any particular significant complaint. In talking to her the most significant with seem to be dyspnea on exertion she denies fever she does states she has a minimally productive cough with us one episode of sputum production this morning. She states she gets short of breath whenever she walks up to stop and rest and resolves after 10 to 15 minutes she does not get any chest pain with this. In reviewing her old chart she has an known history of a dilated nonischemic cardiomyopathy at one point her EF is down to 15% on her most recent echo and [place] 2019 her EF had increased to 37%. She relates all this to having started taking a statin 3 weeks ago she took it for 3 days and states that her problems began then. She also has a been having some diarrhea which she will further correlates with the statin. She denies any antibiotics within the last month. She did tell me that she had a formed bowel movement yesterday and that the diarrhea seems to have stopped but it was going on for 3 weeks. She denies any recent antibiotics. She did on her previous ER visit on December [address] of her abdomen. She does routinely see a funeral home assistant in August of this year she had an angiogram there was no intervention done. She was seen in September of this year by cardiology and they increased her Lasix because of increasing symptoms of congestive heart failure. She is not having any chest pain at all now. Interestingly on review of previous EKGs there is mention of pacemaker noted on the EKGs however there is no history of the patient ever having had a pacemaker. Her EKG today does not show any significant changes. Patient denies dysuria urgency or frequency she had a low-grade fever which was subjective 2 days ago and has resolved. Her primary care doctor is Dr. Fletcher her funeral home assistant is Dr. James. Onset (ago): week(s) (3-4) Severity: severe Associated symptoms: Reports cough, dyspnea, fevers/chills, malaise, nausea and short of breath; Deny rash, palpitations, seizures, syncope, vomiting or weakness Treatments prior to arrival: none Review of Systems Const: Reports: malaise ENMT: Denies: throat pain, ear or mastoid pain, nasal discharge or nasal congestion Card: Denies: palpitations or syncope Resp: Reports: dyspnea GI: Reports: nausea; Denies: vomiting : Reports: other (Patient is a negative review of systems as to but she refers to problems with her urethra); Denies: flank pain, difficulty voiding, dysuria, urinary frequency or urinary urgency Skin/Breast: Denies: rash or pruritus PFSH ED PFSH: Medical History (Updated 12/18/19 @ 17:18 by Jovanni Back DO) Dilated cardiomyopathy Severely depressed LV function 15 to 20%. Patient will be fitted with a LifeVest. Continue to optimize medicine. She is already on carvedilol Diverticulitis Fibromyalgia GERD (gastroesophageal reflux disease) Hyperlipidemia Hypotension Hypothyroidism Rheumatoid arthritis Sleep apnea Patient is on CPAP. Surgical History H/O: hysterectomy History of appendectomy History of PTCA No intervention September 2019 Hx of cholecystectomy Family History (Updated 12/15/19 @ 11:08 by Phoebe Peterson DO) Mother Diabetes CAD (coronary artery disease) Father No problems noted. Other Stroke Social History (Updated 12/15/19 @ 11:09 by Phoebe Peterson DO) Smoking and tobacco status: never smoked Alcohol intake: never Substance/Drug Use: never Physical Exam Const: COMMON NORMALS: no acute distress GENERAL APPEARANCE: cooperative and comfortable ORIENTATION/CONSCIOUSNESS: Yes awake, Yes oriented to person, Yes oriented to place and Yes oriented to time HENMT: COMMON NORMALS: normocephalic and atraumatic HEAD & SCALP: normocephalic and atraumatic Eye: COMMON NORMALS: Equal, round and reactive pupils present, EOMs intact bilaterally, conjunctivae normal and no scleral icterus CONJUNCTIVA: Yes conjunctivae normal PUPIL: Yes Equal, round and reactive pupils present Neck/C-Spine: COMMON NORMALS: full ROM, no lymphadenopathy, supple and no JVD Lymph: LYMPHATIC: no lymphadenopathy noted and no lymphedema noted Resp: COMMON NORMALS: normal respiratory effort, No retractions, No use of accessory muscles and clear to auscultation bilaterally AUSCULTATION: clear to auscultation bilaterally Cardio: COMMON NORMALS: no JVD, regular rate, regular rhythm and No murmurs present (Cardio) RATE: regular rate RHYTHM: regular rhythm GI: COMMON NORMALS: Soft to palpation and No hepatosplenomegaly present AUSCULTATION: Yes normoactive bowel sounds PALPATION: Yes Soft to palpation, No Tenderness to palpation present (GI), No Guarding due to palpation present (GI) and Yes No hepatosplenomegaly present Extremity: COMMON NORMALS: normal to inspection, capillary refill normal, no clubbing, cyanosis or edema, no calf tenderness and no pedal edema Neuro: SENSORIUM/ORIENTATION: Yes oriented to person, Yes oriented to place and Yes oriented to time Skin: COMMON NORMALS: no rashes or lesions noted GENERAL SKIN EXAM: no rashes or lesions noted Course Vital Signs: Vital signs: Vital Signs Temperature 98.0 F 12/18/19 07:45 Pulse Rate 82 12/18/19 16:11 Respiratory Rate 12 12/18/19 16:11 Blood Pressure 116/62 12/18/19 16:11 Pulse Oximetry 96 12/18/19 11:45 MDM - General Adult MDM Narrative: Medical decision making narrative: Patient appears to be in acute on chronic congestive heart failure. Her EF is extremely low. We will go ahead and admit her discussed with Dr. Peterson. We have also ordered stool studies. These are pending. Dr. Peterson will accept on her service. Echo shows her EF has gone back down again. She is at the 15 to 20% range she may require going back with a LifeVest or even be evaluated for an ICD. Lab Data: Labs: Lab Results 12/15/19 12/15/19 12/15/19 Range/Units 06:27 06:27 06:27 WBC 7.7 (4.0-10.0) 10^3/ uL RBC 4.36 (4.1-5.3) 10^6/u L Hgb 12.6 (11.5-15.3) g/dL Hct 39.5 (37.0-47.0) % MCV 90.6 (81-99) fL MCH 28.9 (28.0-34.0) pg MCHC 31.9 (30.0-36.0) g/dL RDW 18.6 H (12.1-15.1) % Plt Count 253 (130-400) 10^3/c mm MPV 10.4 (7.4-10.4) fL Neut % (Auto) 73.0 % Lymph % (Auto) 15.7 % [place] % (Auto) 7.4 % Eos % (Auto) 2.7 % Baso % (Auto) 0.8 % Neut # (Auto) 5.62 (1.8-7.7) 10^3/u L Lymph # (Auto) 1.2 (0.8-4.8) 10^3/u L [place] # (Auto) 0.6 (0.2-0.9) 10^3/u L Eos # (Auto) 0.2 (0.0-0.8) 10^3/u L Baso # (Auto) 0.1 (0.0-0.1) 10^3/u L Nucleated RBC % (a uto) 0 % Nucleated RBCs # 0.0 /100WBC PT (12.1-14.9) SECO NDS INR (0.8-1.2) APTT (23.9-36.7) SECO NDS Sodium 138 (136-145) mmol/L Potassium 4.0 (3.5-5.1) mmol/L Chloride 103 (98-107) mmol/L Carbon Dioxide 22 (22-29) mmol/L Anion Gap 17.0 (5-19) BUN 22 (8-23) mg/dL Creatinine 1.2 H (0.5-0.9) mg/dL GFR Calculation Not Reportable Glucose 123 H (65-115) mg/dL Calculated Osmolal ity 284 L (285-295) mOsm/k g Calcium 9.0 (8.5-10.5) mg/dL Phosphorus (2.5-4.5) mg/dL Magnesium (1.7-2.3) mg/dL Total Bilirubin 1.2 (0.15-1.2) mg/dL AST 92 H (0-32) U/L ALT 124 H (0-33) U/L Alkaline Phosphata se 80 (35-105) IU/L Troponin T Baselin e 12 H (0-10) ng/L Troponin T [address] [place] (0-10) ng/L Delta Troponin T (0-10) ABS# Troponin T Hi Sens 6Hr (0-10) ng/L Troponin T Hi Sens 6Hr Delta (0-12) ng/L NT-Pro-B Natriuret Pep (0-450) pg/mL Total Protein 6.1 L (6.6-8.7) g/dL Albumin 4.3 (3.5-5.2) g/dL Globulin 1.8 (1.3-4.6) g/dL Lipase 31 (13-60) U/L TSH (0.27-4.20) uIU/ mL Free T4 (0.82-1.77) ng/d L Urine Color (Yellow) Urine Appearance (CLEAR) Urine pH (5-7) Ur Specific Gravit y (1.005-1.030) Urine Protein (Negative) Urine Glucose (UA) (Normal) Urine Ketones (Negative) Urine Blood (Negative) Urine Nitrate (Negative) Urine Bilirubin (NEGATIVE) Urine Urobilinogen (Negative) mg/dL Ur Leukocyte [place] (Negative) Hepatitis A IgM Ab (Nonreactive) Hep Bs Antigen (Nonreactive) Hep B Core IgM Ab (Nonreactive) Hepatitis C Antibo dy (Nonreactive) 12/15/19 12/15/19 12/15/19 Range/Units 06:27 06:27 07:00 WBC (4.0-10.0) 10^3/ uL RBC (4.1-5.3) 10^6/u L Hgb (11.5-15.3) g/dL Hct (37.0-47.0) % MCV (81-99) fL MCH (28.0-34.0) pg MCHC (30.0-36.0) g/dL RDW (12.1-15.1) % Plt Count (130-400) 10^3/c mm MPV (7.4-10.4) fL Neut % (Auto) % Lymph % (Auto) % [place] % (Auto) % Eos % (Auto) % Baso % (Auto) % Neut # (Auto) (1.8-7.7) 10^3/u L Lymph # (Auto) (0.8-4.8) 10^3/u L [place] # (Auto) (0.2-0.9) 10^3/u L Eos # (Auto) (0.0-0.8) 10^3/u L Baso # (Auto) (0.0-0.1) 10^3/u L Nucleated RBC % (a uto) % Nucleated RBCs # /100WBC PT 15.80 H (12.1-14.9) SECO NDS INR 1.22 H (0.8-1.2) APTT 29.0 (23.9-36.7) SECO NDS Sodium (136-145) mmol/L Potassium (3.5-5.1) mmol/L Chloride (98-107) mmol/L Carbon Dioxide (22-29) mmol/L Anion Gap (5-19) BUN (8-23) mg/dL Creatinine (0.5-0.9) mg/dL GFR Calculation Glucose (65-115) mg/dL Calculated Osmolal ity (285-295) mOsm/k g Calcium (8.5-10.5) mg/dL Phosphorus (2.5-4.5) mg/dL Magnesium (1.7-2.3) mg/dL Total Bilirubin (0.15-1.2) mg/dL AST (0-32) U/L ALT (0-33) U/L Alkaline Phosphata se (35-105) IU/L Troponin T Baselin e (0-10) ng/L Troponin T [address] [place] (0-10) ng/L Delta Troponin T (0-10) ABS# Troponin T Hi Sens 6Hr (0-10) ng/L Troponin T Hi Sens 6Hr [place] (0-12) ng/L NT-Pro-B Natriuret Pep 7596 H (0-450) pg/mL Total Protein (6.6-8.7) g/dL Albumin (3.5-5.2) g/dL Globulin (1.3-4.6) g/dL Lipase (13-60) U/L TSH (0.27-4.20) uIU/ mL Free T4 (0.82-1.77) ng/d L Urine Color Yellow (Yellow) Urine Appearance Clear (CLEAR) Urine pH 5.0 (5-7) Ur Specific Gravit y 1.020 (1.005-1.030) Urine Protein Neg (Negative) Urine Glucose (UA) Norm (Normal) Urine Ketones Negative (Negative) Urine Blood Neg (Negative) Urine Nitrate Negative (Negative) Urine Bilirubin Neg (NEGATIVE) Urine Urobilinogen Norm (Negative) mg/dL Ur Leukocyte [place] Negative (Negative) Hepatitis A IgM Ab Non-reactive (Nonreactive) Hep Bs Antigen Non-reactive (Nonreactive) Hep B Core IgM Ab Non-reactive (Nonreactive) Hepatitis C Antibo dy Non-reactive (Nonreactive) 12/15/19 12/15/19 12/15/19 Range/Units 08:25 08:25 08:25 WBC (4.0-10.0) 10^3/ uL RBC (4.1-5.3) 10^6/u L Hgb (11.5-15.3) g/dL Hct (37.0-47.0) % MCV (81-99) fL MCH (28.0-34.0) pg MCHC (30.0-36.0) g/dL RDW (12.1-15.1) % Plt Count (130-400) 10^3/c mm MPV (7.4-10.4) fL Neut % (Auto) % Lymph % (Auto) % [place] % (Auto) % Eos % (Auto) % Baso % (Auto) % Neut # (Auto) (1.8-7.7) 10^3/u L Lymph # (Auto) (0.8-4.8) 10^3/u L [place] # (Auto) (0.2-0.9) 10^3/u L Eos # (Auto) (0.0-0.8) 10^3/u L Baso # (Auto) (0.0-0.1) 10^3/u L Nucleated RBC % (a uto) % Nucleated RBCs # /100WBC PT (12.1-14.9) SECO NDS INR (0.8-1.2) APTT (23.9-36.7) SECO NDS Sodium (136-145) mmol/L Potassium (3.5-5.1) mmol/L Chloride (98-107) mmol/L Carbon Dioxide (22-29) mmol/L Anion Gap (5-19) BUN (8-23) mg/dL Creatinine (0.5-0.9) mg/dL GFR Calculation Glucose (65-115) mg/dL Calculated Osmolal ity (285-295) mOsm/k g Calcium (8.5-10.5) mg/dL Phosphorus 3.2 (2.5-4.5) mg/dL Magnesium 2.4 H (1.7-2.3) mg/dL Total Bilirubin (0.15-1.2) mg/dL AST (0-32) U/L ALT (0-33) U/L Alkaline Phosphata se (35-105) IU/L Troponin T Baselin e (0-10) ng/L Troponin T [address] [place] 11.62 H (0-10) ng/L Delta Troponin T -0.38 L (0-10) ABS# Troponin T Hi Sens 6Hr (0-10) ng/L Troponin T Hi Sens 6Hr [place] (0-12) ng/L NT-Pro-B Natriuret Pep (0-450) pg/mL Total Protein (6.6-8.7) g/dL Albumin (3.5-5.2) g/dL Globulin (1.3-4.6) g/dL Lipase (13-60) U/L TSH 7.24 H (0.27-4.20) uIU/ mL Free T4 1.52 (0.82-1.77) ng/d L Urine Color (Yellow) Urine Appearance (CLEAR) Urine pH (5-7) Ur Specific Gravit y (1.005-1.030) Urine Protein (Negative) Urine Glucose (UA) (Normal) Urine Ketones (Negative) Urine Blood (Negative) Urine Nitrate (Negative) Urine Bilirubin (NEGATIVE) Urine Urobilinogen (Negative) mg/dL Ur Leukocyte [place] (Negative) Hepatitis A IgM Ab (Nonreactive) Hep Bs Antigen (Nonreactive) Hep B Core IgM Ab (Nonreactive) Hepatitis C Antibo dy (Nonreactive) 12/15/19 12/16/19 12/16/19 Range/Units 12:31 04:04 04:04 WBC 5.7 (4.0-10.0) 10^3/ uL RBC 4.17 (4.1-5.3) 10^6/u L Hgb 12.0 (11.5-15.3) g/dL Hct 38.0 (37.0-47.0) % MCV 91.1 (81-99) fL MCH 28.8 (28.0-34.0) pg MCHC 31.6 (30.0-36.0) g/dL RDW 19.0 H (12.1-15.1) % Plt Count 217 (130-400) 10^3/c mm MPV 10.5 H (7.4-10.4) fL Neut % (Auto) 66.2 % Lymph % (Auto) 20.6 % [place] % (Auto) 7.2 % Eos % (Auto) 5.1 % Baso % (Auto) 0.7 % Neut # (Auto) 3.80 (1.8-7.7) 10^3/u L Lymph # (Auto) 1.2 (0.8-4.8) 10^3/u L [place] # (Auto) 0.4 (0.2-0.9) 10^3/u L Eos # (Auto) 0.3 (0.0-0.8) 10^3/u L Baso # (Auto) 0.0 (0.0-0.1) 10^3/u L Nucleated RBC % (a uto) 0 % Nucleated RBCs # 0.0 /100WBC PT (12.1-14.9) SECO NDS INR (0.8-1.2) APTT (23.9-36.7) SECO NDS Sodium 140 (136-145) mmol/L Potassium 3.3 L (3.5-5.1) mmol/L Chloride 105 (98-107) mmol/L Carbon Dioxide 26 (22-29) mmol/L Anion Gap 12.3 (5-19) BUN 19 (8-23) mg/dL Creatinine 1.0 H (0.5-0.9) mg/dL GFR Calculation Not Reportable Glucose 90 (65-115) mg/dL Calculated Osmolal ity 286 (285-295) mOsm/k g Calcium 8.5 (8.5-10.5) mg/dL Phosphorus (2.5-4.5) mg/dL Magnesium (1.7-2.3) mg/dL Total Bilirubin 1.1 (0.15-1.2) mg/dL AST 57 H (0-32) U/L ALT 101 H (0-33) U/L Alkaline Phosphata se 70 (35-105) IU/L Troponin T Baselin e (0-10) ng/L Troponin T [address] [place] (0-10) ng/L Delta Troponin T (0-10) ABS# Troponin T Hi Sens 6Hr 11.02 H (0-10) ng/L Troponin T Hi Sens 6Hr [place] -0.98 L (0-12) ng/L NT-Pro-B Natriuret Pep (0-450) pg/mL Total Protein 5.7 L (6.6-8.7) g/dL Albumin 3.7 (3.5-5.2) g/dL Globulin 2.0 (1.3-4.6) g/dL Lipase (13-60) U/L TSH (0.27-4.20) uIU/ mL Free T4 (0.82-1.77) ng/d L Urine Color (Yellow) Urine Appearance (CLEAR) Urine pH (5-7) Ur Specific Gravit y (1.005-1.030) Urine Protein (Negative) Urine Glucose (UA) (Normal) Urine Ketones (Negative) Urine Blood (Negative) Urine Nitrate (Negative) Urine Bilirubin (NEGATIVE) Urine Urobilinogen (Negative) mg/dL Ur Leukocyte [place] a[place] (Negative) Hepatitis A IgM Ab (Nonreactive) Hep Bs Antigen (Nonreactive) Hep B Core IgM Ab (Nonreactive) Hepatitis C Antibo dy (Nonreactive) Discharge Plan Discharge Patient Disposition: Admitted As Inpatient Admit Provider: Phoebe Peterson Clinical Impression: CHF NYHA class IV, Dilated cardiomyopathy, Hypotension, Hypothyroidism, Sleep apnea, GERD (gastroesophageal reflux disease), High transaminase levels, Diarrhea Condition: Stable Interventions: ED Discharge Assessment Last Done: 12/15/19 10:26 ED Charges Last Done: 12/15/19 10:26 Discharge Date/Time: 12/15/19 10:56 Coding Level of Care Code ED Composition Worker for Kateyg Fwd Exam Comprehensive
[2019-12-15 06:34] LABS: Basophils # 0.1 10^3/uL (0.0-0.1); Basophils % 0.8 %; Eosinophils # 0.2 10^3/uL (0.0-0.8); Eosinophils % 2.7 %; Hematocrit 39.5 % (37.0-47.0); Hemoglobin 12.6 g/dL (11.5-15.3); Lymphocytes # 1.2 10^3/uL (0.8-4.8); Lymphocytes % 15.7 %; Mean Corpuscular HGB Conc 31.9 g/dL (30.0-36.0); Mean Corpuscular Hemoglobin 28.9 pg (28.0-34.0); Mean Corpuscular Volume 90.6 fL (81-99); Mean Platelet Volume 10.4 fL (7.4-10.4); Monocytes # 0.6 10^3/uL (0.2-0.9); Monocytes % 7.4 %; Neutrophils # 5.62 10^3/uL (1.8-7.7); Nucleated Red Blood Cells % 0 %; Platelet Count 253 10^3/cmm (130-400); Red Blood Count 4.36 10^6/uL (4.1-5.3); Red Cell Distribution Width 18.6 % (12.1-15.1); White Blood Count 7.7 10^3/uL (4.0-10.0)
--- NOTE | 2019-12-15 06:40 | PC.NURSE ---
EKG done at 0648 and shown to ER doctor
[2019-12-15 06:55] LABS: Alanine Aminotransferase 124 U/L (0-33); Albumin Level 4.3 g/dL (3.5-5.2); Alkaline Phosphatase 80 IU/L (35-105); Aspartate Amino Transferase 92 U/L (0-32); Blood Urea Nitrogen 22 mg/dL (8-23); Carbon Dioxide 22 mmol/L (22-29); Chloride 103 mmol/L (98-107); Globulin 1.8 g/dL (1.3-4.6); Glucose 123 mg/dL (65-115); Lipase 31 U/L (13-60); Osmolality Calculated 284 mOsm/kg (285-295); Sodium 138 mmol/L (136-145); Total Bilirubin 1.2 mg/dL (0.15-1.2); Total Protein 6.1 g/dL (6.6-8.7)
[2019-12-15 06:57] LABS: Troponin(5th) Baseline 12 ng/L (0-10)
--- NOTE | 2019-12-15 06:58 | US_ITS ---
WS: [id number] RIGHT UPPER QUADRANT ULTRASOUND HISTORY: elevated transaminases COMPARISON: CT 12/15/2019 Liver: 19.0 cm in length. Moderate enlargement of the liver. Mild decreased attenuation throughout th e liver. No mass or bile duct dilatation. Mildly echogenic portal triads. There is an area of increas ed echogenicity near the beztaida hepatis measuring 2.4 x 2.0 x 1.7 cm. May be a small hemangioma. Gallbladder: Prior cholecystectomy. CBD: 1.1 cm Pancreas: Poorly visualized pancreas. Right kidney: 10.9 cm in length. Normal echogenicity with no mass or hydronephrosis. Aorta and IVC: Normal size aorta. IVC is dilated. There is a small amount of ascites noted adjacent to the liver. US/US liver 35179 IMPRESSION: 1. Moderately enlarged liver. 2. Common bile duct is dilated, probably physiologic on the basis of prior cho lecystectomy. 3. Dilated IVC may be on the basis of hepatic congestion and tricuspid regurgi tation/RIGHT heart failure. 4. Small amount of ascites.
[2019-12-15 07:08] LABS: Add Urine Microscopic? NO
[2019-12-15] MEDS: iodixanol 320 mg/mL 100mL Btl IV (07:08)
[2019-12-15 07:12] LABS: Bilirubin Urine Neg (NEGATIVE); Blood Urine Neg (Negative); Glucose Urine UA Norm (Normal); Ketones Urine Negative (Negative); Leukocyte Esterase Urine Negative (Negative); Nitrate Urine Negative (Negative); Protein Urine Neg (Negative); Urine Appearance Clear (CLEAR); Urine Color Yellow (Yellow); Urobilinogen Urine Norm (Negative)
[2019-12-15 07:15] LABS: INR 1.22 (0.8-1.2)
[2019-12-15 07:32] LABS: Hepatitis A Antibody IgM Non-Reactive (Nonreactive); Hepatitis B Core IgM Non-Reactive (Nonreactive); Hepatitis B Surface Antigen Non-Reactive (Nonreactive); Hepatitis C Virus Antibody Non-Reactive (Nonreactive); NT Pro B Type Natriuretic Pept 7596 pg/mL (0-450)
--- NOTE | 2019-12-15 08:01 | USCV_ITS ---
Zulma Phuong Age: 79 Gender: F : 1940 Exam Date: 12/15/2019 08:15 Ordering Phys: Jovanni Back DO Technologist: Carlos Lemon [place] [facility] [place]: chf BP: 113 / 68 HR: 51 Rhythm: Sinus Technical Quality: Good MEASUREMENTS (Male / Female) Normal Values 2D ECHO LV Diastolic Diameter PLAX 5.9 cm 4.2 - 5.9 / 3.9 - 5.3 cm LV Systolic Diameter PLAX 5.4 cm IVS Diastolic Thickness 1.1 cm 0.6 - 1.0 / 0.6 - 0.9 cm IVS Systolic Thickness 1.0 cm LVPW Diastolic Thickness 1.0 cm 0.6 - 1.0 / 0.6 - 0.9 cm LVPW Systolic Thickness 1.1 cm LVOT Diameter 2.0 cm LV Ejection Fraction 2D Teich 18.5 % LV Ejection Fraction MOD 2C 23.9 % LV Ejection Fraction 2C AL 24.5 % LA Diameter 5.0 cm LA Width 4.8 cm LA Height 5.9 cm RA Width 5.2 cm RA Height 5.2 cm Aorta at Sinotubular Diameter 1.0 cm M-MODE LV Diastolic Diameter MM 6.4 cm 4.2 - 5.9 / 3.9 - 5.3 cm LV Systolic Diameter MM 5.6 cm LV Ejection Fraction MM Teich 27.0 % IVS Diastolic Thickness MM 0.9 cm 0.6 - 1.0 / 0.6 - 0.9 cm IVS Systolic Thickness MM 1.1 cm LVPW Diastolic Thickness MM 1.3 cm 0.6 - 1.0 / 0.6 - 0.9 cm LVPW Systolic Thickness MM 1.7 cm RV Diastolic Diameter MM 1.1 cm Aortic Annulus Diameter 2.8 cm LA Ao Ratio MM 1.8 MV E Point Septal Separation 3.5 cm DOPPLER AV Peak Velocity 118.0 cm/s LVOT Peak Velocity 52.0 cm/s AV Area Cont Eq vti 1.0 cm squared AV Area Cont Eq pk 1.4 cm squared MV Area PHT 5.0 cm squared Mitral E to A Ratio 1.2 MV E' Velocity 103.0 cm/s TR Peak Velocity 325.0 cm/s TR Peak Gradient 42.2 mmHg TV Peak E Velocity 139.0 cm/s Right Atrial Pressure 3.0 mmHg Pulmonary Artery Systolic Pressu 45.3 mmHg PV Peak Velocity 66.0 cm/s FINDINGS Left Ventricle Moderately dilated LV cavity. Severely reduced LV function with EF of 15 to 20%. Severe global hypokinesis is noted. Normal left ventricular wall thickness. Diastolic function is abnormal. Right Ventricle The right ventricle is mildly dilated and has mildly reduced function. Right Atrium The right atrium is normal in size. Left Atrium The left atrium is normal in size. Mitral Valve Structurally normal mitral valve without significant stenosis or prolapse. There is mild to moderate mitral regurgitation. Aortic Valve Structurally normal aortic valve without significant sclerosis or stenosis. There is no aortic regurgitation. Tricuspid Valve Structurally normal tricuspid valve, mild TR is noted. RVSP is about 50. Moderate pulmonary hypertension is noted. Pulmonic Valve Structurally normal pulmonic valve without significant stenosis. There is no pulmonic regurgitation. Pericardium Normal pericardium without effusion. Aorta Normal ascending aorta dimension. CONCLUSIONS Severely reduced LV function with EF of 15 to 20%. Severe global hypokinesis is noted. RV function is mildly reduced. Diastolic function is abnormal. Moderate pulmonary hypertension is noted. Stanford Ware MD (Electronically Signed) Final Date: 15 December 2019 10:49 S
--- NOTE | 2019-12-15 08:06 | PC.NURSE ---
pt given warm blanket at this time
[2019-12-15] MEDS: FUROsemide 10 mg/mL SDV 10mL 60 MG IVP (08:14)
--- NOTE | 2019-12-15 08:18 | ECG_ITS ---
[facility] Test Date: 2019-12-15 Pat Name: Phuong Maya Department: Room: Gender: Female Health Program Analyst: : 1940 Requested By: Jovanni Gandara Order Number: [id number] Darnell MD: Vero Zamorano M.D. Measurements Intervals [place] Rate: 81 P: 58 VA: 177 QRS: -71 QRSD: 168 T: 71 QT: 460 QTc: 537 Interpretive Statements SINUS RHYTHM LEFT AXIS DEVIATION [QRS AXIS < -30] LEFT BUNDLE BRANCH BLOCK Compared to ECG 12/15/2019 06:39:09 No significant changes Electronically Signed On 12-15-2019 12:47:07 CDT by Vero Zamorano M.D. [id number]
[2019-12-15 08:52] LABS: Troponin 5 2HR 11.62 ng/L (0-10)
--- NOTE | 2019-12-15 08:57 | PC.NURSE ---
pt c/o legs being restless and is requesting something to help. ED physician notified of pts request
[2019-12-15 08:59] LABS: Troponin 5 2HR Delta -0.38 ABS# (0-10)
[2019-12-15 10:37] LABS: Thyroid Stimulating Hormone 7.24 uIU/mL (0.27-4.20)
--- NOTE | 2019-12-15 10:58 | P.HP_ITS ---
Providers/Chief Complaint Admitting Physician: Phoebe Peterson DO Primary Care Provider: Camden Fletcher MD Chief Complaint: MULTIPLE COMPLAINTS History of Present Illness Phuong Maya is a 79 year old female with a past medical history of severe systolic congestive heart failure, hypertension and chronic kidney disease that presented to the emergency department today for increasing shortness of breath and orthopnea. She reported that she has had increasing dyspnea on exertion over the past couple of weeks. She stated that she started having loose stools as well as nausea after starting on atorvastatin recently. She stated that she did not have any bright red blood per rectum, no melanotic stools but continued to have increased nausea and diarrhea. She stopped taking the atorvastatin due to concerns as it started after she was prescribed the cholesterol medication. Patient reported that she has had several trips to the emergency department, prescribed Carafate to help out with her nausea which she reports anytime she takes that she feels like it makes her symptoms worse. She stated that she has noticed increased bloating under her diaphragm which seems to be worse shortly after taking this medication, therefore she has not been taking it regularly. Patient reports that she was told to stop taking her Lasix for 2 days due to her increasing diarrhea. She did this but now she has had increasing orthopnea and increasing dyspnea on exertion. She reports fatigue. She also states she has had intermittent chills and sweats for the past couple of weeks. She denies any cough or sputum production other than one occasion this morning. No hemoptysis, no fevers or chills, no sick contacts. Denies any exposure to anyone under investigation or positive for COVID-19. She stated that she did finally have a formed bowel movement yesterday, no dark or tarry like stools no bright red blood per rectum. Patient reports that she is on well water at home but no one else has been sick. Patient was seen and evaluated in the emergency department due to the concern for her LVEF decreasing back down around 15% cardiology was consulted and patient was placed on observation due to congestive heart failure with acute exacerbation. She was given IV Lasix while in the ED and cardiology was consulted and evaluated patient while she was in the ER. Review of Systems Const: Reports: chills; Denies: fever(s) Eyes: Denies: change in vision ENMT: Denies: nasal congestion Card: Denies: chest pain, palpitations or edema Resp: Reports: dyspnea; Denies: productive cough or hemoptysis GI: Reports: nausea, diarrhea (Recently resolved in the past 24 hours) and bloating; Denies: abdominal pain, vomiting, constipation, hematochezia or melena : Reports: other (Reports uterine prolapse with occasional sharp pain); Denies: dysuria or hematuria Musc: Denies: extremity pain or muscle cramps Skin/Breast: Denies: rash or new lesions Neuro: Denies: headache(s) or dizziness Psych: Reports: anxiety; Denies: depression Endo: Denies: polyuria or hot flashes Phu/Lymph: Denies: easy bruising or easy bleeding Medications/Allergies Home Medications Medication Instructions Recorded Confirmed Last Taken Type carvedilol 3.125 mg tablet 3.125 mg PO BID 90 Days #180 tab 08/03/19 12/15/19 12/14/19 Rx aspirin 81 mg tablet,delayed 81 mg PO DAILY 10/02/19 12/15/19 12/14/19 History release cetirizine 10 mg tablet 10 mg PO DAILY tab 10/02/19 12/15/19 12/14/19 History cholecalciferol (vitamin D3) 25 25 mcg PO DAILY 10/02/19 12/15/19 12/14/19 History mcg (1,000 unit) capsule escitalopram oxalate 5 mg tablet 5 mg PO DAILY 10/02/19 12/15/19 12/14/19 History furosemide 40 mg tablet 40 mg PO DAILY 10/02/19 12/15/19 12/14/19 History lactobacillus combination no.4 3 3,000 mmu cells PO DAILY 10/02/19 12/15/19 12/14/19 History billion cell capsule levothyroxine 75 mcg tablet 75 mcg PO DAILY 10/02/19 12/15/19 12/14/19 History magnesium oxide,aspartate,citr 400 mg PO BID 10/02/19 12/15/19 12/14/19 History multivitamin 1 tab PO DAILY 10/02/19 12/15/19 12/14/19 History ondansetron 4 mg PO Q6H PRN #10 tab 12/06/19 12/15/19 Unknown Rx sucralfate [Carafate] 1 gm PO Q6H #420 ml 12/06/19 12/15/1920 Rx potassium chloride 10 mEq 10 meq PO DIRECTED #270 tab 12/07/19 12/15/19 12/14/19 Rx tablet,extended release donepezil 5 mg PO DAILY 12/15/19 12/15/19 Unknown History trazodone 50 mg PO BEDTIME 12/15/19 12/15/19 12/14/19 History Allergies Allergy/AdvReac Type Severity Reaction Status Date / Time acetaminophen [From Tylenol] Allergy Unknown Unknown Verified 12/03/19 14:24 PFSH Acute PFSH: Medical History Dilated cardiomyopathy GERD (gastroesophageal reflux disease) Hyperlipidemia Hypotension Hypothyroidism Sleep apnea Surgical History H/O: hysterectomy History of appendectomy History of PTCA No intervention September 2019 Hx of cholecystectomy Family History (Updated 12/15/19 @ 11:08 by Phoebe Peterson DO) Mother Diabetes CAD (coronary artery disease) Father No problems noted. Other Stroke Social History (Updated 12/15/19 @ 11:09 by Phoebe Peterson DO) Smoking and tobacco status: never smoked Alcohol intake: never Substance/Drug Use: never Vitals/I&O/Wt Last Vital Signs Temp 98.1 F 12/15/19 05:22 Pulse 81 12/15/19 10:26 Resp 16 12/15/19 10:26 BP 106/81 12/15/19 10:26 Pulse Ox 95 12/15/19 10:26 Weight last 48 hrs Weight 67.585 kg Physical Exam Const: COMMON NORMALS: patient oriented x3 and alert GENERAL APPEARANCE: cooperative ORIENTATION/CONSCIOUSNESS: Yes awake, Yes oriented to person, Yes oriented to place and Yes oriented to time HENMT: COMMON NORMALS: normocephalic and atraumatic HEAD & SCALP: norm ocephalic and atraumatic Eye: COMMON NORMALS: Equal, round and reactive pupils present PUPIL: Yes Equal, round and reactive pupils present Neck/C-Spine: COMMON NORMALS: supple GENERAL: Yes normal visual inspection Resp: COMMON NORMALS: normal respiratory effort and clear to auscultation bilaterally EFFORT & INSPECTION: Yes able to speak in complete sentences OTHER: Respirations even and unlabored, faint crackles in the bases bilaterally Cardio: COMMON NORMALS: regular rate, regular rhythm and No murmurs present (Cardio) RATE: regular rate RHYTHM: regular rhythm GI: COMMON NORMALS: Soft to palpation and non-tender INSPECTION: No abdominal distension AUSCULTATION: Yes normoactive bowel sounds PALPATION: Yes Soft to palpation OTHER: Soft, nontender, mild fluid wave, normal bowel sounds : COMMON NORMALS: Yes no CVA tenderness BLADDER/KIDNEY EXAM: Yes no CVA tenderness Back/Pelvis: COMMON NORMALS: no CVA tenderness Extremity: COMMON NORMALS: no clubbing, cyanosis or edema and no calf tenderness Neuro: COMMON NORMALS: patient oriented x3, CN's II-XII intact bilaterally, moves all extremities and no focal motor deficits SENSORIUM/ORIENTATION: Yes alert, Yes oriented to person, Yes oriented to place and Yes oriented to time SPEECH: speech normal Psych: COMMON NORMALS: mental status grossly normal and cooperative Skin: COMMON NORMALS: no rashes or lesions noted GENERAL SKIN EXAM: no rashes or lesions noted Data : 12/15/19 06:27 12/15/19 06:27 Echo: Radiologist's impression: Cardiology impression: CONCLUSIONS Severely reduced LV function with EF of 15 to 20%. Severe global hypokinesis is noted. RV function is mildly reduced. Diastolic function is abnormal. Moderate pulmonary hypertension is noted. US: Radiologist's impression: IMPRESSION: 1. Moderately enlarged liver. 2. Common bile duct is dilated, probably physiologic on the basis of prior cholecystectomy. 3. Dilated IVC may be on the basis of hepatic congestion and tricuspid regur gitation/RIGHT heart failure. 4. Small amount of ascites. CT Abd/Pel: I personally reviewed and interpreted this imaging study as follows: Radiologist's impression: IMPRESSION: 1. Small amount of ascites which has increased since 12/06/2019. 2. Focal loop of enteritis in the LEFT lower quadrant. Mild hyperemia and edema is new since 12/06/2019. 3. Small bilateral pleural effusions which have also very slightly increased since the prior study. 4. Marked cardiomegaly. 5. Enlarged liver and findings likely due to passive hepatic congestion. 6. Diverticulosis without acute diverticulitis. 7. Prior cholecystectomy and and appendectomy. CXR: I personally reviewed and interpreted this imaging study as follows: Radiologist's impression: Mild pulmonary congestion is similar to the prior study. Linear area of scarring in the lingula. Benign granuloma RIGHT upper lobe. No pleural effusion or pneumothorax. Cardiac size: Mildly enlarged cardiac silhouette. Mediastinum/Aorta: Mild atherosclerosis aorta. Mildly dilated pulmonary arteries. No osseous abnormality seen. XR/XR chest 1V portable [id number] IMPRESSION: 1. Very mild pulmonary edema similar to the prior study. 2. Pulmonary hypertension. 3. No pneumonia. A&P Assessment and plan (1) CHF NYHA class IV: Acute on chronic systolic congestive heart failure with an LVEF of 15 to 20% Placed on observation, patient is currently on room air Requires IV Lasix at this time and close monitoring as well as cardiology consultation Continue with IV Lasix 40 mg every 12 hours along with potassium supplementation Strict intake and output as well as daily weights With patient's drop in LVEF may require LifeVest, will follow up with cardiology recommendations. This was discussed with patient. Continue on Coreg, aspirin, consider addition of Aldactone if blood pressure tolerates. Patient is no longer on statin medication due to intolerance Will discuss with cardiology about the possibility of Entresto Status: Acute (2) Hypothyroidism: Recheck TSH and continue on home levothyroxine 75 mcg daily Status: Acute (3) Sleep apnea: Patient denies wearing a CPAP at home, had prior sleep study in 2019 Status: Acute (4) Hyperlipidemia: Intolerant of statin medications Status: Acute Additional A&P Information Nausea and diarrhea: Reports that this resolved in the past 24 hours, stool studies ordered and pending we will follow-up with results. Liver ultrasound shows portal venous congestion, likely secondary to congestive heart failure. Patient has CT findings of a small focal loop of enteritis in the left lower quadrant, nontender and stools have improved therefore we will continue with con servative measures Transaminitis with portal venous congestion with concern for severe systolic con gestive heart failure, will continue with diuresis as above. Hepatitis panel ordered reactive. Ascites/anasarca: Continue with diuresis as above, patient did held her Lasix for 2 days due to concern for acute volume loss with diarrhea, this is now resolved. We will continue with diuretics as above Diverticulosis without evidence of diverticulitis Chronic kidney disease: appears to be at baseline Uterine prolapse: recommend outpatient PHARMACY TECHNICIAN follow up DVT prophylaxis: Lovenox Diet: Cardiac, 2 g sodium restriction, 1500 mL fluid restriction CODE STATUS: DNR/DNI. This was discussed with patient at length while she was in the emergency department and she reported that she does not wish to have resuscitative measures. Attestations Medical Necessity Statement*: Observation due to systolic congestive heart failure exacerbation that is acute on chronic, expected stay less than 2 midnights Coding Level of Care Code Acute Neurology Epilepsy Physician for Zeferino Fwd Diagnoses CHF NYHA class IV I50.9 Hypothyroidism E03.9 Sleep apnea G47.30 Hyperlipidemia E78.5
--- NOTE | 2019-12-15 11:00 | PC.NURSE ---
From ER Alert, oriented, chronic SOB. Denies N/V or abdominal pain. VS stable. Oriented pt to staff and call light use.
[2019-12-15 11:40] LABS: Magnesium 2.4 mg/dL (1.7-2.3); Phosphorus 3.2 mg/dL (2.5-4.5)
--- NOTE | 2019-12-15 12:18 | ECG_ITS ---
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 Measurements Intervals Schroeder Rate: 80 P: 46 MI: 179 QRS: -54 QRSD: 172 T: 91 QT: 471 QTc: 546 Interpretive Statements SINUS RHYTHM POSSIBLE LEFT ATRIAL ENLARGEMENT [-0.1mV P WAVE IN V1/V2] MARKED LEFT AXIS DEVIATION [QRS AXIS < -30] LEFT BUNDLE BRANCH BLOCK Compared to ECG 12/15/2019 08:10:55 No significant changes Electronically Signed On 12-15-2019 12:46:41 CDT by Vero Zamorano M.D. [id number]
--- NOTE | 2019-12-15 12:38 | P.CONIM_ITS ---
Providers/Reason For Consult Consulting Physican/Specialty*: Cardiology Reason for Consult*: CHF exacerbation Attending Physician: Phoebe Peterson DO Primary Care Provider: Camden Fletcher MD History of Present Illness History of Present Illness Phuong Maya is a 79 year old female past medical history of nonischemic cardiomyopathy, hypothyroidism, obstructive sleep apnea and dyslipidemia. She presented to the hospital with multiple complaints include nausea, abdominal fullness, shortness of breath and orthopnea. According to the patient she has been compliant with her medications and is taking Lasix. She has been having diarrhea going on for a few weeks and her Lasix were held for a brief period. Over the last 2 weeks she has been getting progressively more short of breath and doing activities of daily living are becoming difficult because of shortness of breath fatigue. She has not noted any lower extremity swelling. On last echocardiogram patient's EF was noted to be 37%, patient sees Dr. Vergara in clinic. Today, the EF is at 15 to 20% with global hypokinesis. CT scan of the abdomen shows mild ascites and hepatic congestion. EKG shows left bundle branch block. NT proBNP today is more than 7500. 2 weeks ago, it was in range of 1066-0428. Prior to that previous labs had shown NT proBNP of 7135-1677. Review of Systems Const: Reports: malaise ENMT: Denies: throat pain, ear or mastoid pain, nasal discharge or nasal congestion Card: Denies: palpitations or syncope Resp: Reports: dyspnea GI: Reports: nausea, early satiety and diarrhea; Denies: vomiting : Reports: other (Patient is a negative review of systems as to but she refers to problems with her urethra); Denies: flank pain, difficulty voiding, dysuria, urinary frequency or urinary urgency Skin/Breast: Denies: rash or pruritus Neuro: Denies: headache(s) or weakness in extremities Psych: Reports: sleeping less Meds/Allergies Home Medications and Allergies Home Medications Medication Instructions Recorded Confirmed Last Taken Type carvedilol 3.125 mg tablet 3.125 mg PO BID 90 Days #180 tab 08/03/19 12/15/19 12/14/19 Rx aspirin 81 mg tablet,delayed 81 mg PO DAILY 10/02/19 12/15/19 12/14/19 History release cetirizine 10 mg tablet 10 mg PO DAILY tab 10/02/19 12/15/19 12/14/19 History cholecalciferol (vitamin D3) 25 25 mcg PO DAILY 10/02/19 12/15/19 12/14/19 History mcg (1,000 unit) capsule escitalopram oxalate 5 mg tablet 5 mg PO DAILY 10/02/19 12/15/19 12/14/19 History furosemide 40 mg tablet 40 mg PO DAILY 10/02/19 12/15/19 12/14/19 History lactobacillus combination no.4 3 3,000 mmu cells PO DAILY 10/02/19 12/15/19 12/14/19 History billion cell capsule levothyroxine 75 mcg tablet 75 mcg PO DAILY 10/02/19 12/15/19 12/14/19 History magnesium oxide,aspartate,citr 400 mg PO BID 10/02/19 12/15/19 12/14/19 History multivitamin 1 tab PO DAILY 10/02/19 12/15/19 12/14/19 History ondansetron 4 mg PO Q6H PRN #10 tab 12/06/19 12/15/19 Unknown Rx sucralfate [Carafate] 1 gm PO Q6H #420 ml 12/06/19 12/15/19 12/14/19 Rx potassium chloride 10 mEq 10 meq PO DIRECTED #270 tab 12/07/19 12/15/19 12/14/19 Rx tablet,extended release donepezil 5 mg PO DAILY 12/15/19 12/15/19 Unknown History trazodone 50 mg PO BEDTIME 12/15/19 12/15/19 12/14/19 History Allergies Allergy/AdvReac Type Severity Reaction Status Date / Time acetaminophen [From Tylenol] Allergy Unknown Unknown Verified 12/03/19 14:24 PFSH Acute PFSH: Medical History Dilated cardiomyopathy GERD (gastroesophageal reflux disease) Hyperlipidemia Hypotension Hypothyroidism Sleep apnea Surgical History H/O: hysterectomy History of appendectomy History of PTCA No intervention September 2019 Hx of cholecystectomy Family History (Updated 12/15/19 @ 11:08 by Phoebe Peterson DO) Mother Diabetes CAD (coronary artery disease) Father No problems noted. Other Stroke Social History (Updated 12/15/19 @ 11:09 by Phoebe Peterson DO) Smoking and tobacco status: never smoked Alcohol intake: never Substance/Drug Use: never Vitals/I&O/Wt Last Vital Signs Temp 98.4 F 12/15/19 11:35 Pulse 84 12/15/19 11:35 Resp 16 12/15/19 11:35 BP 111/72 12/15/19 11:35 Pulse Ox 96 12/15/19 11:35 Weight last 48 hrs Weight 149 lb Physical Exam Narrative: EXAM NARRATIVE: GENERAL: Patient is alert, awake and oriented x3. [] NECK: Mildly elevated jugular vein distension [] HEENT: No cyanosis. No icterus. No pallor. [] HEART: Regular S1 and S2. No murmur, rub or gallop. [] LUNGS: Mild crackles bilaterally [] ABDOMEN: Abdominal fullness noted. Positive bowel sounds. No guarding, rebound or tenderness. [] CENTRAL NERVOUS SYSTEM: Grossly nonfocal. [] EXTREMITIES: Lower extremities with no edema bilaterally. Lower extremities are warm to touch. Pulses palpable in the lower extremities, both dorsalis pedis and posterior tibial. [] Data Imaging^: Echo: Radiologist's impression: Severely reduced LV function with EF of 15 to 20%. Severe global hypokinesis is noted. RV function is mildly reduced. Diastolic function is abnormal. Moderate pulmonary hypertension is noted. EKG^: EKG 1: Deckhand Clam Dredge Interpretation: Rate: 80 P: 46 OK: 179 QRS: -54 QRSD: 172 T: 91 QT: 471 QTc: 546 Interpretive Statements SINUS RHYTHM POSSIBLE LEFT ATRIAL ENLARGEMENT [-0.1mV P WAVE IN V1/V2] MARKED LEFT AXIS DEVIATION [QRS AXIS < -30] LEFT BUNDLE BRANCH BLOCK A&P Assessment and plan (1) CHF NYHA class IV: Status: Acute (2) Hypothyroidism: Status: Acute (3) Sleep apnea: Status: Acute (4) Hyperlipidemia: Status: Acute Patient has features of acute on chronic systolic congestive heart failure with an LVEF of 15 to 20% Agree with IV Lasix 40 mg twice daily. Will reevaluate the dose based on response. Strict intake and output as well as daily weights. Monitor electrolytes and creatinine closely. Continue Coreg. We will consider adding Entresto at the time of discharge. If patient's symptoms do not improve with diuresis, will consider performing a right heart cath. If patient does not have it currently, patient will need LifeVest and discussion of ICD in future. OK to hold atorvastatin currently as patient is attributing her symptoms to initiation of this medication and is not comfortable continuing it. Coding Level of Care Code Acute Towel Folder for Chg Fwd Diagnoses CHF NYHA class IV I50.9 Hypothyroidism E03.9 Sleep apnea G47.30 Hyperlipidemia E78.5
[2019-12-15 13:05] LABS: Troponin 5 6HR 11.02 ng/L (0-10)
[2019-12-15] MEDS: aspirin 81 mg EC Tablet PO (13:06)
[2019-12-15] MEDS: levothyroxine 150 mcg Tablet 75 MCG PO (13:06)
[2019-12-15] MEDS: enoxaparin 40 mg/0.4 mL Syringe SUBCUT (13:06)
[2019-12-15 13:11] LABS: Troponin 5 6HR Delta -0.98 ng/L (0-12)
[2019-12-15] MEDS: ALPRAZolam 0.25 mg Tablet PO ×2 (15:21→21:02)
[2019-12-15] MEDS: magnesium oxide 400 mg tablet PO (17:02)
[2019-12-15] MEDS: carvedilol 3.125 mg Tablet PO (17:02)
--- NOTE | 2019-12-15 17:31 | PC.NURSE ---
Doctor contacted about contraindications about SCD's, other VTE's in place. Doctor Nicholas gave telephone orders to DC SCD's
[2019-12-15] MEDS: morphine 4 mg/mL SDV 1 mL 2 MG IVP (19:16)
[2019-12-15] MEDS: FUROsemide 10 mg/mL SDV 4mL 40 MG IVP (19:16)
[2019-12-15] MEDS: potassium chloride ER 10 mEq Tablet PO (21:02)
[2019-12-16] VITALS (12 sets, daily range): BP systolic 90–103; BP diastolic 52–78; PULSE 62–87; RESP 13–24; TEMP 36.4–36.7; O2SAT 94–98
[2019-12-16 00:13] LABS: Free T4 Free Thyroxine 1.52 ng/dL (0.82-1.77)
--- NOTE | 2019-12-16 03:26 | PC.NURSE ---
Noted patient to have decreased heart rate with sleep. Patient heart rate has decreased to low 40s. Patient denies any dizziness, lightheadedness, or other discomforts. No distress observed.
[2019-12-16 04:40] LABS: Basophils % 0.7 %; Eosinophils # 0.3 10^3/uL (0.0-0.8); Eosinophils % 5.1 %; Lymphocytes # 1.2 10^3/uL (0.8-4.8); Lymphocytes % 20.6 %; Mean Corpuscular HGB Conc 31.6 g/dL (30.0-36.0); Mean Corpuscular Hemoglobin 28.8 pg (28.0-34.0); Mean Corpuscular Volume 91.1 fL (81-99); Mean Platelet Volume 10.5 fL (7.4-10.4); Monocytes # 0.4 10^3/uL (0.2-0.9); Monocytes % 7.2 %; Neutrophils % 66.2 %; Nucleated Red Blood Cells % 0 %; Platelet Count 217 10^3/cmm (130-400); Red Blood Count 4.17 10^6/uL (4.1-5.3); White Blood Count 5.7 10^3/uL (4.0-10.0)
[2019-12-16 05:03] LABS: Alanine Aminotransferase 101 U/L (0-33); Albumin Level 3.7 g/dL (3.5-5.2); Alkaline Phosphatase 70 IU/L (35-105); Anion Gap 12.3 (5-19); Aspartate Amino Transferase 57 U/L (0-32); Blood Urea Nitrogen 19 mg/dL (8-23); Calcium 8.5 mg/dL (8.5-10.5); Carbon Dioxide 26 mmol/L (22-29); Chloride 105 mmol/L (98-107); Glucose 90 mg/dL (65-115); Osmolality Calculated 286 mOsm/kg (285-295); Potassium 3.3 mmol/L (3.5-5.1); Sodium 140 mmol/L (136-145); Total Bilirubin 1.1 mg/dL (0.15-1.2); Total Protein 5.7 g/dL (6.6-8.7)
[2019-12-16] MEDS: magnesium oxide 400 mg tablet PO ×2 (08:03→17:58)
[2019-12-16] MEDS: potassium chloride ER 10 mEq Tablet 20 MEQ PO (08:03)
[2019-12-16] MEDS: levothyroxine 150 mcg Tablet 75 MCG PO (08:03)
[2019-12-16] MEDS: cholecalciferol (vitamin D3) 1,000 unit Tablet 1000 UNIT PO (08:03)
[2019-12-16] MEDS: multivitamin therapeutic Tablet 1 TAB PO (08:03)
[2019-12-16] MEDS: aspirin 81 mg EC Tablet PO (08:03)
[2019-12-16] MEDS: carvedilol 3.125 mg Tablet PO ×2 (08:03→17:58)
[2019-12-16] MEDS: FUROsemide 10 mg/mL SDV 4mL 40 MG IVP ×2 (08:04→10:29)
[2019-12-16] MEDS: escitalopram 10 mg Tablet 5 MG PO (08:04)
--- NOTE | 2019-12-16 08:05 | PC.CHAP ---
Pastoral Care Encounter/Spiritual Assessment Type of Contact [] Declined agricultural education professor visit [] Patient/Family/Request visit [] Outpatient visit [] Follow-up visit [] Physician referral [] Code/Alert [x] Routine visit [] Staff referral [] Actively dying [] Patient sleeping [] Family support [] [] Out of room [] Palliative care [] [] Receiving care in room [] Pre-surgical visit [] Trauma [] Long length of stay [] ICU visit [] Other: Relational/Emotional Strength [] Patient feels connected with others/family/visitors/staff [] Distress [] Loneliness/isolation [] Abandonment Spirituality of Patient [] Person of Libertad [] Attends Zoroastrianism of their Libertad [] Believes in Prayer [] Reads Bible or Advent materials [] There are Spiritual issues to be addressed Security Shift Manager Interventions [x] Prayer [x] Active listening [x] Non-anxious presence [x] Spiritual/emotional support [] Crisis/trauma care [] Spiritual counseling [] Bereavement support [] Provided bereavement packet [] Provided Bible/devotional materials [] Provided toy/stuffed animal, coloring book to patient or family member [] Provided Communion [] Anointing/[place] [] Salvation [x] Completed spiritual assessment [] Other: Impact on Illness or Injury [] Angry [] Fearful [] Anxious [] Often cries [] Exhaustion [] Unable to work [] Unable to attend adventism [] Unable to walk/stand [] Unable to read [] Unable to drive [] Unable to eat/drink [] Unable to sleep [] Unable to be with family [] Patient intubated [] Other: Summary patient resting well Time spent with patient 10 min
--- NOTE | 2019-12-16 10:21 | PC.NURSE ---
Dr ken on unit for rounding verbal instructions given to 40 mg lasix IVP made jesus manuel aware of patients pota level. no changes with instructions. instructions to insert mitchell for accurate measurements of I&O
--- NOTE | 2019-12-16 10:30 | P.PN_ITS ---
Subjective Subjective: Interval history: Patient's hospital course noted. Examination patient uncomfortable in bed on room air saturating 96% when complaining that she feels as if she is not passing good amount of air in her lungs. Denies of any nausea, vomiting. Getting out of breath by conversation and minimal exertion. Documented urine output only 720 since admission. Vitals/I&O/Wt Last Vital Signs Temp 97.6 F 12/16/19 09:56 Pulse 87 12/16/19 09:56 Resp 24 H 12/16/19 09:56 BP 100/78 12/16/19 09:56 Pulse Ox 94 12/16/19 07:54 12/15/19 12/16/19 12/16/19 22:59 06:59 14:59 Intake Total 240 / 358 60 / 418 240 / 240 Output Total 100 / 400 500 / 900 Balance 140 / -42 -440 / -482 240 / 240 Weight last 48 hrs Weight 66.633 kg Weight 67.585 kg Physical Exam Narrative: EXAM NARRATIVE: General: No acute distress, AO x3 HEENT: PERRLA, pupils bilaterally equal and reactive Chest: Normal vesicular breath sounds, no added sounds, equal good air entry bilaterally CVS: S1-S2 regular, no bradycardia tachycardia, S3 gallop present, pansystolic murmur at the apex 3/6 radiating to anterior axillary line. Abdomen: Soft, nontender, no organomegaly, bowel sounds present Neuro: No focal deficits, no facial deformity, AO x3, power 5/5 in all limbs Urinary Catheter Management^: Mcpherson: Cath Placed During This Visit: yes Urinary Catheter Date of Insertion: 12/16/19 Urinary Catheter Time of Insertion: 10:23 Data : 12/16/19 04:04 12/16/19 04:04 A&P Assessment and plan (1) CHF NYHA class IV: Acute on chronic systolic congestive heart failure with an LVEF of 15 to 20%. proBNP more than 7500 Given borderline urine output will increase Lasix to 80 mg IV twice daily. Fluid restriction up to 1200 cc. Daily weights, strict input output charting. To facilitate with work of breathing will try for BiPAP/high flow that will also help with lung recruitment and mild PEEP. Continue with home dose of Coreg and aspirin. For now we will hold off on adding any other antihypertensives to facilitate with better diuresis. Most likely patient has poor forward flow cardiogenic shock. If blood pressure allows will most likely add Entresto near discharge. Cardiology consultation appreciated. Patient will be set up for LifeVest at the time of discharge. Status: Acute (2) Hypothyroidism: Continue home dose of levothyroxine. TSH elevated. Will check free T4. Will adjust dose according to T4 levels Status: Acute (3) Sleep apnea: Patient denies wearing a CPAP at home, had prior sleep study in 2019 Status: Acute (4) Hyperlipidemia: Intolerant of statin medications with diarrhea Status: Acute (5) High transaminase levels: Status: Acute Additional A&P Information Nausea and diarrhea: Reports that this resolved in the past 24 hours, Stool studies within normal limits. Liver ultrasound shows portal venous congestion, likely secondary to congestive heart failure. Patient has CT findings of a small focal loop of enteritis in the left lower quadrant, nontender and stools have improved therefore we will continue with conservative measures. Transaminitis with portal venous congestion with concern for severe systolic congestive heart failure, will continue with diuresis as above. Hepatitis panel results appreciated. Ascites/anasarca: Continue with diuresis as above, patient did held her Lasix for 2 days due to concern for acute volume loss with diarrhea, this is now resolved. We will continue with diuretics as above Diverticulosis without evidence of diverticulitis Chronic kidney disease: appears to be at baseline Uterine prolapse: recommend outpatient REGISTERED PHYSICAL THERAPIST follow up DVT prophylaxis: Lovenox Diet: Cardiac, 2 g sodium restriction, 1200 mL fluid restriction CODE STATUS: DNR/DNI. This was discussed with patient at length while she was in the emergency department and she reported that she does not wish to have resuscitative measures. Change status to inpatient given poor response to Lasix for congestive heart failure. Attestations Medical Necessity Statement*: Decompensated heart failure Time Spent in Patient Care: Greater than 35 minutes (>than 50% of time spent in counselling and/or direct pt care on unit) . Coding Level of Care Code Acute Strawhat Sizer for Chg Fwd Diagnoses CHF NYHA class IV I50.9 Hypothyroidism E03.9 Sleep apnea G47.30 Hyperlipidemia E78.5 High transaminase levels R74.0
[2019-12-16] MEDS: enoxaparin 40 mg/0.4 mL Syringe SUBCUT (12:49)
--- NOTE | 2019-12-16 14:20 | P.PN_ITS ---
Subjective Subjective: Interval history: Patient has been feeling much better compared to yesterday. Says has been making good amount of urine since being put on IV Lasix. Still short of breath on walking. Does feel that the abdominal bloating has improved as well. Medications: Reviewed: Yes Vitals/I&O/Wt Last Vital Signs Temp 97.6 F 12/16/19 09:56 Pulse 78 12/16/19 13:29 Resp 24 H 12/16/19 09:56 BP 100/78 12/16/19 09:56 Pulse Ox 98 12/16/19 13:29 12/15/19 12/16/19 12/16/19 22:59 06:59 14:59 Intake Total 240 / 358 60 / 418 240 / 240 Output Total 100 / 400 500 / 900 120 / 120 Balance 140 / -42 -440 / -482 120 / 120 Weight last 48 hrs Weight 146 lb 14.4 oz Weight 149 lb Physical Exam Narrative: EXAM NARRATIVE: GENERAL: Patient is alert, awake and oriented x3. [] NECK: No jugular vein distension. [] HEENT: No cyanosis. No icterus. No pallor. [] HEART: Regular S1 and S2. No murmur, rub or gallop. [] LUNGS: Mild crackles laterally [] ABDOMEN: Soft. Positive bowel sounds. No guarding, rebound or tenderness. [] CENTRAL NERVOUS SYSTEM: Grossly nonfocal. [] EXTREMITIES: Lower extremities with no significant edema. [] Urinary Catheter Management^: Mcpherson: Cath Placed During This Visit: yes Urinary Catheter Date of Insertion: 12/16/19 Urinary Catheter Time of Insertion: 10:23 Data : 12/16/19 04:04 12/16/19 04:04 Micro: Microbiology 12/15/19 18:00 Stool Lactoferrin - Final Stool Occult Blood (FIT) - Final A&P Assessment and plan (1) CHF NYHA class IV: Status: Acute (2) Hypothyroidism: Status: Acute (3) Sleep apnea: Status: Acute (4) Hyperlipidemia: Status: Acute Patient has responded well to IV Lasix, feels much better today. Will recommend continuing with IV Lasix for now. Close monitoring of intake and outputs. Please target net negative balance of 1 L by tomorrow. Can initiate Entresto. Continue Coreg. Will recommend LifeVest at the time of discharge. Please call with questions. Thank you for involving us with the care of this patient. Attestations Medical Necessity Statement*: Patient needs continued care according to medicine team. Coding Level of Care Code Acute Yarn Spooler for Zeferino Guillory Diagnoses CHF NYHA class IV I50.9 Hypothyroidism E03.9 Sleep apnea G47.30 Hyperlipidemia E78.5
--- NOTE | 2019-12-16 16:15 | PC.NURSE ---
Dr ken on unit discussed laxis doseage instructions to increase laxis to 80mg BID starting at nest dose
[2019-12-16] MEDS: FUROsemide 10 mg/mL SDV 4mL 80 MG IVP (20:12)
[2019-12-16] MEDS: ALPRAZolam 0.25 mg Tablet PO (20:15)
[2019-12-16] MEDS: potassium chloride ER 10 mEq Tablet PO (20:15)
--- NOTE | 2019-12-16 23:00 | PC.NURSE ---
PT RESTING IN BED. PT C/O INCREASED ANXIETY. PRN XANAX WAS GIVEN. PT STATES THAT THEY HAVEN'T SLEPT IN DAYS. PT HAS SOME HEMATURIA THAT APPEARS TO BE RESOLVING. DAY SHIFT NURSE SAID THAT PT HAD GOTTEN UP TO BATHROOM AND CAUSED SOME TRAUMA. NO NEW HEMATURIA IN THE TUBING. WILL CONTINUE TO MONITOR.
[2019-12-17] VITALS (9 sets, daily range): BP systolic 93–118; BP diastolic 56–81; PULSE 74–92; RESP 14–32; TEMP 36.2–36.8; O2SAT 92–100
[2019-12-17] MEDS: ALPRAZolam 0.25 mg Tablet PO ×2 (06:10→20:03)
--- NOTE | 2019-12-17 06:17 | PC.NURSE ---
PT C/O ANXIETY. PRN XANAX WAS GIVEN. WILL CONTINUE TO MONITOR.
--- NOTE | 2019-12-17 08:45 | ECG_ITS ---
[facility] Test Date: 2019-12-17 Pat Name: Phuong Maya Department: Room: 102 Gender: Female Set Decorator: : 1940 Requested By: Humphrey Tan Order Number: [id number] Reading MD: Macario Peraza M.D. Measurements Intervals [place] Rate: 85 P: 29 NV: 177 QRS: -37 QRSD: 165 T: 78 QT: 439 QTc: 522 Interpretive Statements SINUS RHYTHM MARKED LEFT AXIS DEVIATION [QRS AXIS < -30] LEFT BUNDLE BRANCH BLOCK [120+ ms QRS DURATION, 80+ ms Q/S IN V1/V2, 85+ ms R IN I/aVL/V5/V6] Compared to ECG 12/15/2019 12:43:53 No significant changes Electronically Signed On 12-17-2019 21:07:01 CDT by Macario Peraza M.D. [id number]
--- NOTE | 2019-12-17 08:57 | PC.NURSE ---
Patient reports chest pain at this time that radiates from back. patient has mild sob that remains the same from admission EKG performed no changes from previous EKG. patient reports pain has relived a bit and is a dule ache around under left breast. will notify provider of changes.
[2019-12-17] MEDS: escitalopram 10 mg Tablet 5 MG PO (08:58)
[2019-12-17] MEDS: multivitamin therapeutic Tablet 1 TAB PO (08:58)
[2019-12-17] MEDS: levothyroxine 150 mcg Tablet 75 MCG PO (08:59)
[2019-12-17] MEDS: aspirin 81 mg EC Tablet PO (08:59)
[2019-12-17] MEDS: cholecalciferol (vitamin D3) 1,000 unit Tablet 1000 UNIT PO (08:59)
[2019-12-17] MEDS: carvedilol 3.125 mg Tablet PO (08:59)
[2019-12-17] MEDS: potassium chloride ER 10 mEq Tablet 20 MEQ PO ×2 (08:59→11:23)
[2019-12-17] MEDS: magnesium oxide 400 mg tablet PO ×2 (08:59→18:24)
[2019-12-17] MEDS: FUROsemide 10 mg/mL SDV 4mL 80 MG IVP ×2 (08:59→19:33)
[2019-12-17 10:07] LABS: Basophils # 0.1 10^3/uL (0.0-0.1); Basophils % 0.6 %; Eosinophils # 0.2 10^3/uL (0.0-0.8); Eosinophils % 2.7 %; Hematocrit 42.5 % (37.0-47.0); Hemoglobin 13.2 g/dL (11.5-15.3); Lymphocytes # 1.3 10^3/uL (0.8-4.8); Lymphocytes % 15.3 %; Mean Corpuscular HGB Conc 31.1 g/dL (30.0-36.0); Mean Corpuscular Hemoglobin 28.6 pg (28.0-34.0); Mean Corpuscular Volume 92.2 fL (81-99); Mean Platelet Volume 10.2 fL (7.4-10.4); Monocytes # 0.5 10^3/uL (0.2-0.9); Monocytes % 6.4 %; Neutrophils # 6.13 10^3/uL (1.8-7.7); Neutrophils % 74.6 %; Nucleated Red Blood Cells % 0 %; Platelet Count 259 10^3/cmm (130-400); Red Blood Count 4.61 10^6/uL (4.1-5.3); Red Cell Distribution Width 19.3 % (12.1-15.1); White Blood Count 8.2 10^3/uL (4.0-10.0)
[2019-12-17 10:57] LABS: Alanine Aminotransferase 103 U/L (0-33); Albumin Level 4.1 g/dL (3.5-5.2); Alkaline Phosphatase 77 IU/L (35-105); Anion Gap 16.7 (5-19); Aspartate Amino Transferase 45 U/L (0-32); Blood Urea Nitrogen 22 mg/dL (8-23); Carbon Dioxide 23 mmol/L (22-29); Chloride 101 mmol/L (98-107); Globulin 2.6 g/dL (1.3-4.6); Glucose 163 mg/dL (65-115); Osmolality Calculated 284 mOsm/kg (285-295); Potassium 3.7 mmol/L (3.5-5.1); Sodium 137 mmol/L (136-145); Total Protein 6.7 g/dL (6.6-8.7)
--- NOTE | 2019-12-17 11:12 | PC.NURSE ---
Dr. Vergara at bedside for assessment and discussion of POC discussed patient recent chest pain this am new instructions given at bedside to give 20 meq of PO potassium x1 now
[2019-12-17] MEDS: enoxaparin 40 mg/0.4 mL Syringe SUBCUT (11:23)
--- NOTE | 2019-12-17 11:55 | PC.NURSE ---
reported enteric panel results to Dr wu no new instructions given at this time
--- NOTE | 2019-12-17 12:51 | PM.PN ---
Subjective Subjective: Interval history: Shortness of breath is better. Patient has -1 L since yesterday. She complained of left side crampy pain most likely musculoskeletal no significant EKG changes. Medications: Reviewed: Yes Vitals/I&O/Wt Last Vital Signs Temp 98.0 F 12/17/19 11:17 Pulse 79 12/17/19 11:17 Resp 18 12/17/19 11:17 BP 95/67 12/17/19 11:17 Pulse Ox 96 12/17/19 09:05 12/16/19 12/17/19 12/17/19 22:59 06:59 14:59 Intake Total 260 / 500 150 / 650 360 / 360 Output Total 550 / 670 600 / 1270 Balance -290 / -170 -450 / -620 360 / 360 Weight last 48 hrs Weight 152 lb 3.2 oz Weight 146 lb 14.4 oz Physical Exam Narrative: EXAM NARRATIVE: GENERAL: Patient is alert, awake and oriented x3. NECK: No jugular vein distension. HEENT: No cyanosis. No icterus. No pallor. HEART: Regular S1 and S2. No murmur, rub or gallop. LUNGS: Mild inspiratory crackles bilaterally. ABDOMEN: Soft, nontender and nondistended. Positive bowel sounds. No guarding, rebound or tenderness. CENTRAL NERVOUS SYSTEM: Grossly nonfocal. EXTREMITIES: Lower extremities without edema bilaterally. Urinary Catheter Management^: Mcpherson: Cath Placed During This Visit: yes Reason for Continuing Indwelling Catheter: Accurate Measurement of Urinary Output in Critically Ill Patients Urinary Catheter Date of Insertion: 12/16/19 Urinary Catheter Time of Insertion: 10:23 Data : 12/17/19 09:53 12/17/19 09:53 Micro: Microbiology 12/15/19 18:00 Enteric Pathogens (PCR) - Preliminary Stool - Stool Aspirate 12/15/19 18:00 Stool Lactoferrin - Final Stool Parasite Antigen Panel - Final Occult Blood (FIT) - Final A&P Assessment and plan (1) CHF NYHA class IV: Status: Acute Qualifiers: Congestive heart failure type: systolic Congestive heart failure chronicity: acute on chronic Qualified Code(s): I50.23 - Acute on chronic systolic (congestive) heart failure (2) Sleep apnea: Status: Acute Qualifiers: Sleep apnea type: obstructive Qualified Code(s): G47.33 - Obstructive sleep apnea (adult) (pediatric) (3) Muscular pain: Status: Acute (4) Dilated cardiomyopathy: Status: Acute Patient has responded well to IV Lasix, feels much better today. Will recommend continuing with IV Lasix for now. Close monitoring of intake and outputs. Please target net negative balance of 1 L by tomorrow. Can initiate Entresto. Continue Coreg. Will recommend LifeVest at the time of discharge. Please call with questions. Thank you for involving us with the care of this patient. Attestations Medical Necessity Statement*: Patient require continuation of hospitalization for above defined care. Coding Level of Care Code Established Pt Acute Environmental Compliance Manager for Zeferino Guillory Patient Type Established History Expanded Problem Focused Exam Expanded Problem Focused Medical Decision Making Moderate Complexity Diagnoses CHF NYHA class IV I50.23 Congestive heart failure type: systolic Congestive heart failure chronicity: acute on chronic Sleep apnea G47.33 Sleep apnea type: obstructive Muscular pain M79.10 Dilated cardiomyopathy I42.0
--- NOTE | 2019-12-17 13:08 | PM.PN ---
Subjective Subjective: Interval history: No acute events overnight. On examination she is doing better. She states she is feeling better as well. She denies of having any nausea, vomiting, headache. She is sitting in chair comfortably on examination. She states she had a restful night. Labs and vitals and input and output noted. Medications: Reviewed: Yes Vitals/I&O/Wt Last Vital Signs Temp 98.0 F 12/17/19 11:17 Pulse 79 12/17/19 11:17 Resp 18 12/17/19 11:17 BP 95/67 12/17/19 11:17 Pulse Ox 96 12/17/19 09:05 12/16/19 12/17/19 12/17/19 22:59 06:59 14:59 Intake Total 260 / 500 150 / 650 600 / 600 Output Total 550 / 670 600 / 1270 Balance -290 / -170 -450 / -620 600 / 600 Weight last 48 hrs Weight 69.037 kg Weight 66.633 kg Physical Exam Narrative: EXAM NARRATIVE: General: No acute distress, AO x3 HEENT: PERRLA, pupils bilaterally equal and reactive Chest: Normal vesicular breath sounds, no added sounds, equal good air entry bilaterally CVS: S1-S2 regular, no bradycardia tachycardia, S3 gallop present, pansystolic murmur at the apex 3/6 radiating to anterior axillary line. Abdomen: Soft, nontender, no organomegaly, bowel sounds present Neuro: No focal deficits, no facial deformity, AO x3, power 5/5 in all limbs Urinary Catheter Management^: Mcpherson: Cath Placed During This Visit: yes Reason for Continuing Indwelling Catheter: Accurate Measurement of Urinary Output in Critically Ill Patients Urinary Catheter Date of Insertion: 12/16/19 Urinary Catheter Time of Insertion: 10:23 Data : 12/17/19 09:53 12/17/19 09:53 Micro: Microbiology 12/15/19 18:00 Enteric Pathogens (PCR) - Preliminary Stool - Stool Aspirate 12/15/19 18:00 Stool Lactoferrin - Final Stool Parasite Antigen Panel - Final Occult Blood (FIT) - Final A&P Assessment and plan (1) CHF NYHA class IV: Acute on chronic systolic congestive heart failure with an LVEF of 15 to 20%. proBNP more than 7500 Overall 1 L negative in last 24 hours. Continue with IV Lasix 80 mg twice daily for 1 more day.. Fluid restriction up to 1200 cc. Daily weights, strict input output charting. To facilitate with work of breathing will try for BiPAP/high flow that will also help with lung recruitment and mild PEEP. Continue with home dose of Coreg and aspirin. For now we will hold off on adding any other antihypertensives to facilitate with better diuresis. Most likely patient has poor forward flow cardiogenic shock. If blood pressure allows will most likely add Entresto near discharge. Cardiology consultation appreciated. Patient will be set up for LifeVest at the time of discharge. Status: Acute Qualifiers: Congestive heart failure type: systolic Congestive heart failure chronicity: acute on chronic Qualified Code(s): I50.23 - Acute on chronic systolic (congestive) heart failure (2) Hypothyroidism: Continue home dose of levothyroxine. TSH elevated. Will check free T4. Will adjust dose according to T4 levels Status: Acute (3) Sleep apnea: Patient denies wearing a CPAP at home, had prior sleep study in 2019 Status: Acute Qualifiers: Sleep apnea type: obstructive Qualified Code(s): G47.33 - Obstructive sleep apnea (adult) (pediatric) (4) Hyperlipidemia: Intolerant of statin medications with diarrhea Status: Acute (5) High transaminase levels: Status: Acute (6) Shiga toxin 1 and Shiga toxin 2 detected: Status: Acute Additional A&P Information Nausea and diarrhea: Diarrhea. Stool studies positive for Shiga toxin. As patient is improving and is having no further diarrhea we will continue to monitor. We will continue with fluid restrictions as discussed above. Transaminase: Liver ultrasound shows portal venous congestion, likely secondary to congestive heart failure. Patient has CT findings of a small focal loop of enteritis in the left lower quadrant, nontender and stools have improved therefore we will continue with conservative measures. Transaminitis with portal venous congestion with concern for severe systolic congestive heart failure, will continue with diuresis as above. Hepatitis panel results appreciated. Ascites/anasarca: Continue with diuresis as above, patient did held her Lasix for 2 days due to concern for acute volume loss with diarrhea, this is now resolved. We will continue with diuretics as above Diverticulosis without evidence of diverticulitis Chronic kidney disease: appears to be at baseline Uterine prolapse: recommend outpatient COCOA POWDER MIXER OPERATOR follow up DVT prophylaxis: Lovenox Diet: Cardiac, 2 g sodium restriction, 1200 mL fluid restriction CODE STATUS: DNR/DNI. This was discussed with patient at length while she was in the emergency department and she reported that she does not wish to have resuscitative measures. Patient is responding to IV Lasix. We will continue to monitor. Patient continues to do well tomorrow can plan to discharge. Attestations Medical Necessity Statement*: Acute decompensated congestive heart failure, NYHA class IV, Shiga toxin diarrhea Time Spent in Patient Care: Greater than 35 minutes (>than 50% of time spent in counselling and/or direct pt care on unit). Coding Level of Care Code Acute Bonding Molder for Zeferino Bagleyd Diagnoses CHF NYHA class IV I50.23 Congestive heart failure type: systolic Congestive heart failure chronicity: acute on chronic Hypothyroidism E03.9 Sleep apnea G47.33 Sleep apnea type: obstructive Hyperlipidemia E78.5 High transaminase levels R74.0 Shiga toxin 1 and Shiga toxin 2 detected B96.23
[2019-12-17] MEDS: ondansetron 2 mg/ML SDV 2 mL 4 MG IVP (15:09)
--- NOTE | 2019-12-17 18:25 | PC.NURSE ---
Notified Dr. Vergara of patient low blood pressure this shift instructions to hold evening dose of coreg
[2019-12-17] MEDS: potassium chloride ER 10 mEq Tablet PO (20:03)
--- NOTE | 2019-12-17 20:54 | PC.NURSE ---
PT RESTING IN BED. PT C/O INCREASED ANXIETY. PRN XANAX WAS GIVEN. PT STATES THAT THEY DON'T WANT TO WEAR THE BIPAP TONIGHT THAT THEY JUST WANT SOME SLEEP. PT EDUCATED ON THE NEED FOR BIPAP. PT STATES UNDERSTANDING. WILL CONTINUE TO MONITOR.
[2019-12-18] VITALS (7 sets, daily range): BP systolic 98–142; BP diastolic 52–82; PULSE 78–87; RESP 12–20; TEMP 36.4–36.7; O2SAT 92–96
[2019-12-18 04:27] LABS: Basophils # 0.1 10^3/uL (0.0-0.1); Basophils % 0.9 %; Eosinophils # 0.2 10^3/uL (0.0-0.8); Eosinophils % 2.6 %; Hematocrit 38.5 % (37.0-47.0); Hemoglobin 12.1 g/dL (11.5-15.3); Lymphocytes # 1.4 10^3/uL (0.8-4.8); Lymphocytes % 20.6 %; Mean Corpuscular HGB Conc 31.4 g/dL (30.0-36.0); Mean Corpuscular Hemoglobin 28.9 pg (28.0-34.0); Mean Corpuscular Volume 91.9 fL (81-99); Mean Platelet Volume 10.7 fL (7.4-10.4); Monocytes # 0.5 10^3/uL (0.2-0.9); Monocytes % 8.1 %; Neutrophils % 67.3 %; Nucleated Red Blood Cells % 0 %; Platelet Count 226 10^3/cmm (130-400); Red Blood Count 4.19 10^6/uL (4.1-5.3); Red Cell Distribution Width 19.2 % (12.1-15.1); White Blood Count 6.5 10^3/uL (4.0-10.0)
[2019-12-18 04:54] LABS: Alanine Aminotransferase 141 U/L (0-33); Albumin Level 3.8 g/dL (3.5-5.2); Alkaline Phosphatase 73 IU/L (35-105); Anion Gap 14.7 (5-19); Aspartate Amino Transferase 117 U/L (0-32); Blood Urea Nitrogen 22 mg/dL (8-23); Calcium 9.1 mg/dL (8.5-10.5); Carbon Dioxide 25 mmol/L (22-29); Chloride 103 mmol/L (98-107); Globulin 1.9 g/dL (1.3-4.6); Glucose 98 mg/dL (65-115); Osmolality Calculated 285 mOsm/kg (285-295); Potassium 3.7 mmol/L (3.5-5.1); Sodium 139 mmol/L (136-145); Total Bilirubin 1.2 mg/dL (0.15-1.2); Total Protein 5.7 g/dL (6.6-8.7)
--- NOTE | 2019-12-18 05:03 | PC.NURSE ---
PT RESTING IN BED ON BIPAP AT THIS TIME. PT DENIES PAIN AT THIS TIME. WILL GIVE REPORT TO ON COMING NURSE.
[2019-12-18] MEDS: FUROsemide 10 mg/mL SDV 4mL 80 MG IVP ×2 (08:00→20:30)
[2019-12-18] MEDS: ondansetron 2 mg/ML SDV 2 mL 4 MG IVP ×3 (08:00→20:36)
--- NOTE | 2019-12-18 09:41 | PC.NURSE ---
Family brought in personal belongings at bedside.
[2019-12-18] MEDS: cholecalciferol (vitamin D3) 1,000 unit Tablet 1000 UNIT PO (09:55)
[2019-12-18] MEDS: potassium chloride ER 10 mEq Tablet 20 MEQ PO (09:56)
[2019-12-18] MEDS: carvedilol 3.125 mg Tablet PO ×2 (09:56→19:33)
[2019-12-18] MEDS: magnesium oxide 400 mg tablet PO ×2 (09:57→19:33)
[2019-12-18] MEDS: aspirin 81 mg EC Tablet PO (09:57)
[2019-12-18] MEDS: donepezil 5 MG Tablet PO ×4 (09:57→10:12)
[2019-12-18] MEDS: levothyroxine 150 mcg Tablet 75 MCG PO (09:57)
[2019-12-18] MEDS: cetirizine 10 mg Tablet PO (09:58)
[2019-12-18] MEDS: multivitamin therapeutic Tablet 1 TAB PO (09:59)
[2019-12-18] MEDS: enoxaparin 40 mg/0.4 mL Syringe SUBCUT (13:26)
--- NOTE | 2019-12-18 13:35 | PC.NURSE ---
Patient c/o continued nausea worsening after lunch and requested more medicine for nausea.
[2019-12-18] MEDS: ALPRAZolam 0.25 mg Tablet PO ×2 (13:54→21:12)
--- NOTE | 2019-12-18 17:41 | P.PN_ITS ---
Subjective Subjective: Interval history: Feeling better today. She is laying flat and breathe. Medications: Reviewed: Yes Vitals/I&O/Wt Last Vital Signs Temp 98.0 F 12/18/19 07:45 Pulse 82 12/18/19 16:11 Resp 12 12/18/19 16:11 BP 116/62 12/18/19 16:11 Pulse Ox 96 12/18/19 11:45 12/18/19 12/18/19 12/18/19 06:59 14:59 22:59 Intake Total 60 / 1070 720 / 720 120 / 840 Output Total 550 / 550 150 / 150 Balance -490 / 520 570 / 570 120 / 690 Weight last 48 hrs Weight 151 lb 6.4 oz Weight 152 lb 3.2 oz Physical Exam Narrative: EXAM NARRATIVE: GENERAL: Patient is alert, awake and oriented x3. NECK: No jugular vein distension. HEENT: No cyanosis. No icterus. No pallor. HEART: Regular S1 and S2. No murmur, rub or gallop. LUNGS: Mild inspiratory crackles bilaterally. ABDOMEN: Soft, nontender and nondistended. Positive bowel sounds. No guarding, rebound or tenderness. CENTRAL NERVOUS SYSTEM: Grossly nonfocal. EXTREMITIES: Lower extremities without edema bilaterally. Urinary Catheter Management^: Mcpherson: Cath Placed During This Visit: yes Reason for Continuing Indwelling Catheter: Accurate Measurement of Urinary Output in Critically Ill Patients Urinary Catheter Date of Insertion: 12/16/19 Urinary Catheter Time of Insertion: 10:23 Data : 12/18/19 03:54 12/18/19 03:54 A&P Assessment and plan (1) CHF NYHA class IV: Status: Acute (2) Sleep apnea: Status: Acute (3) Muscular pain: Status: Acute (4) Dilated cardiomyopathy: Status: Acute Patient has responded well to IV Lasix, feels much better today. Will recommend continuing with IV Lasix for now. Close monitoring of intake and outputs. Please target net negative balance of 1 L by tomorrow. Can initiate Entresto. Continue Coreg. Will recommend LifeVest at the time of discharge. Please call with questions. Thank you for involving us with the care of this patient. Attestations Medical Necessity Statement*: Patient require continuation hospitalization for above defined care Coding Level of Care Code Established Pt Acute Blast Furnace Operator for Chg Fwd Patient Type Established History Expanded Problem Focused Exam Expanded Problem Focused Medical Decision Making Moderate Complexity Diagnoses CHF NYHA class IV I50.9 Sleep apnea G47.30 Muscular pain M79.10 Dilated cardiomyopathy I42.0
--- NOTE | 2019-12-18 18:51 | PM.PN ---
Subjective Subjective: Interval history: No events overnight. Patient states she did have 1-2 episodes of loose bowel movements with nausea but no vomiting. She states she is not able to eat because she feels nauseous. Denies of any palpitations, chest pain, headache. On examination she is lying comfortably in bed without any difficulty in breathing. Vitals and labs noted. Patient today is little frustrated with her medical progression. She would like to do regular daily activities but is not able to do. Medications: Reviewed: Yes Vitals/I&O/Wt Last Vital Signs Temp 98.0 F 12/18/19 07:45 Pulse 82 12/18/19 16:11 Resp 12 12/18/19 16:11 BP 116/62 12/18/19 16:11 Pulse Ox 96 12/18/19 11:45 12/18/19 12/18/19 12/18/19 06:59 14:59 22:59 Intake Total 60 / 1070 720 / 720 120 / 840 Output Total 550 / 550 150 / 150 250 / 400 Balance -490 / 520 570 / 570 -130 / 440 Weight last 48 hrs Weight 68.674 kg Weight 69.037 kg Physical Exam Narrative: EXAM NARRATIVE: General: No acute distress, AO x3 HEENT: PERRLA, pupils bilaterally equal and reactive Chest: Normal vesicular breath sounds, no added sounds, equal good air entry bilaterally CVS: S1-S2 regular, no bradycardia tachycardia, S3 gallop present, pansystolic murmur at the apex 3/6 radiating to anterior axillary line. Abdomen: Soft, nontender, no organomegaly, bowel sounds present Neuro: No focal deficits, no facial deformity, AO x3, power 5/5 in all limbs Urinary Catheter Management^: Mcpherson: Cath Placed During This Visit: yes Reason for Continuing Indwelling Catheter: Accurate Measurement of Urinary Output in Critically Ill Patients Urinary Catheter Date of Insertion: 12/16/19 Urinary Catheter Time of Insertion: 10:23 Data : 12/18/19 03:54 12/18/19 03:54 A&P Assessment and plan (1) CHF NYHA class IV: Acute on chronic systolic congestive heart failure with an LVEF of 15 to 20%. proBNP more than 7500 Overall 1 L negative in last 24 hours. Continue with IV Lasix 80 mg twice daily for 1 more day.. Fluid restriction up to 1200 cc. Daily weights, strict input output charting. To facilitate with work of breathing will try for BiPAP/high flow that will also help with lung recruitment and mild PEEP. Continue with home dose of Coreg and aspirin. For now we will hold off on adding any other antihypertensives to facilitate with better diuresis. Most likely patient has poor forward flow cardiogenic shock. If blood pressure allows will most likely add Entresto near discharge. Cardiology consultation appreciated. Patient will be set up for LifeVest at the time of discharge. Status: Acute (2) Hypothyroidism: Continue home dose of levothyroxine. TSH elevated. Will check free T4. 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 Cannot give fluids because patient is at high risk of developing fluid overload. We will change the diet to bland diet. Status: Acute Additional A&P Information Nausea and diarrhea: Diarrhea. Stool studies positive for Shiga toxin. As patient is improving and is having no further diarrhea we will continue to monitor. We will change the diet to bland diet. Cannot give fluids as patient is at high risk of developing fluid overload. We will continue with fluid restrictions as discussed above. Transaminase: Liver ultrasound shows portal venous congestion, likely secondary to congestive heart failure. Patient has CT findings of a small focal loop of enteritis in the left lower quadrant, nontender and stools have improved therefore we will continue with conservative measures. Transaminitis with portal venous congestion with concern for severe systolic congestive heart failure, will continue with diuresis as above. Hepatitis panel results appreciated. Ascites/anasarca: Continue with diuresis as above, patient did held her Lasix for 2 days due to concern for acute volume loss with diarrhea, this is now resolved. 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 This was discussed with patient at length while she was in the emergency department and she reported that she does not wish to have resuscitative measures. Patient is responding to IV Lasix. We will continue to monitor. Patient continues to do well tomorrow can plan to discharge. We will hold off on discharge for today just to assess for patient's oral intake in next 24 hours. Patient is at high risk of electrolyte abnormalities versus fluid overload because of very fine balance with her given severe LV dysfunction and NYHA class IV CHF Attestations Medical Necessity Statement*: Diarrhea, Shiga toxin gastroenteritis, NYHA class IV CHF Time Spent in Patient Care: Greater than 35 minutes (>than 50% of time spent in counselling and/or direct pt care on unit). Coding Level of Care Code Acute Director Of Perioperative Services for Chg Fwd Diagnoses CHF NYHA class IV I50.9 Hypothyroidism E03.9 Sleep apnea G47.30 Hyperlipidemia E78.5 High transaminase levels R74.0 Shiga toxin 1 and Shiga toxin 2 detected B96.23
[2019-12-18] MEDS: potassium chloride ER 10 mEq Tablet PO (20:29)
[2019-12-19] VITALS (8 sets, daily range): BP systolic 95–117; BP diastolic 53–79; PULSE 68–85; RESP 12–18; TEMP 36.3–36.8; O2SAT 90–98
[2019-12-19] MEDS: morphine 4 mg/mL SDV 1 mL 2 MG IVP (00:34)
--- NOTE | 2019-12-19 04:08 | PC.NURSE ---
PT IS RESTING IN BED. PT APPEARS TO BE RESTING WITH EYES CLOSED AT THIS TIME. RECYCLE WORKER NURSE GAVE PRN MORPHINE FOR PAIN. WILL CONTINUE TO MONITOR.
[2019-12-19] MEDS: FUROsemide 10 mg/mL SDV 4mL 80 MG IVP (10:08)
[2019-12-19] MEDS: ALPRAZolam 0.25 mg Tablet PO (10:10)
[2019-12-19] MEDS: multivitamin therapeutic Tablet 1 TAB PO (10:10)
[2019-12-19] MEDS: carvedilol 3.125 mg Tablet PO (10:10)
[2019-12-19] MEDS: escitalopram 10 mg Tablet 5 MG PO (10:11)
[2019-12-19] MEDS: magnesium oxide 400 mg tablet PO (10:12)
[2019-12-19] MEDS: levothyroxine 150 mcg Tablet 75 MCG PO (10:12)
[2019-12-19] MEDS: aspirin 81 mg EC Tablet PO (10:12)
[2019-12-19] MEDS: cholecalciferol (vitamin D3) 1,000 unit Tablet 1000 UNIT PO (10:12)
[2019-12-19] MEDS: potassium chloride ER 10 mEq Tablet 20 MEQ PO (10:14)
--- NOTE | 2019-12-19 10:14 | P.DS_ITS ---
Discharge Providers Date of Admission: 12/16/19 09:44 Date of Discharge: December 19, 2019 Attending Provider at Admission: Phoebe Peterson DO Attending Provider at Discharge: Humphrey Tan MD Consults: Cardiology: Dr. Vergara Primary Care Provider: Camden Fletcher MD Diagnoses at Discharge Discharge Diagnosis (1) CHF NYHA class IV: Status: Acute Problem details: Patient has systolic decompensated heart failure with class IV. It is well compensated now after IV diuretics she has been switched to p.o. Lasix. She has not been able to tolerate Entresto due to low blood pressure therefore as an outpatient we may will start her. If she continues to have non-tolerable decompensated systolic heart failure we will may consider PUBLIC HEALTH DOCTOR-D (2) Hypothyroidism: Status: Acute (3) Sleep apnea: Status: Acute Problem details: Patient is on CPAP. 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 She reported that she has had increasing dyspnea on exertion over the past couple of weeks. She stated that she started having loose stools as well as nausea after starting on atorvastatin recently. She stated that she did not have any bright red blood per rectum, no melanotic stools but continued to have increased nausea and diarrhea. She stopped taking the atorvastatin due to concerns as it started after she was prescribed the cholesterol medication. Patient reported that she has had several trips to the emergency department, prescribed Carafate to help out with her nausea which she reports anytime she takes that she feels like it makes her symptoms worse. She stated that she has noticed increased bloating under her diaphragm which seems to be worse shortly after taking this medication, therefore she has not been taking it regularly. Patient reports that she was told to stop taking her Lasix for 2 days due to her increasing diarrhea. She did this but now she has had increasing orthopnea and increasing dyspnea on exertion. She reports fatigue. She also states she has had intermittent chills and sweats for the past couple of weeks. She denies any cough or sputum production other than one occasion this morning. No hemoptysis, no fevers or chills, no sick contacts. Denies any exposure to anyone under investigation or positive for COVID-19. She stated that she did finally have a formed bowel movement yesterday, no dark or tarry like stools no bright red blood per rectum. Patient reports that she is on well water at home but no one else has been sick. Patient was seen and evaluated in the emergency department due to the concern for her LVEF decreasing back down around 15% cardiology was consulted and shirlene robbins was placed on observation due to congestive heart failure with acute exacerbation. She was given IV Lasix while in the ED and cardiology was consulted and evaluated patient while she was in the ER. Patient was admitted to the hospital and started on IV diuresis because of concern for NYHA class IV CHF. Her diuresis was very slow and gradual because of poor oral intake and borderline blood pressures. Stool studies were sent which were positive for Shiga toxin gastroenteritis. Her bowel movements by the day of discharge are more formed but were as frequent as at least twice a day. She is advised to take bland/brat diet for next couple of days to week and advance as tolerated. She is been discharged home on Lasix 40 mg in morning and 20 mg at 4 PM every day. She has been advised to restrict her fluid intake to around 1500 cc on a regular day and up to 1800 cc on the day of diarrhea and vomiting. She is also advised to take at least half a glass of Gatorade on the days of diarrhea. She is advised to take 2 g salt diet. Home oxygen evaluation was done prior to discharge and oxygen was ordered. She is been discharged in hemodynamic stable condition. Unfortunately because of NYHA class IV CHF she is at a very high risk for readmission and severe guarded prognosis. Patient requires ACEi or ARNI but could not be added because of her borderline blood pressures. Sagar was also fit with Lifevest. Physical Exam Narrative: EXAM NARRATIVE: General: No acute distress, AO x3 HEENT: PERRLA, pupils bilaterally equal and reactive Chest: Normal vesicular breath sounds, no added sounds, equal good air entry bilaterally CVS: S1-S2 regular, no bradycardia tachycardia, S3 gallop present, pansystolic murmur at the apex 3/6 radiating to anterior axillary line. Abdomen: Soft, nontender, no organomegaly, bowel sounds present Neuro: No focal deficits, no facial deformity, AO x3, power 5/5 in all limbs Urinary Catheter Management^: Mcpherson: Cath Placed During This Visit: yes Reason for Continuing Indwelling Catheter: Accurate Measurement of Urinary Output in Critically Ill Patients Urinary Catheter Date of Insertion: 12/16/19 Urinary Catheter Time of Insertion: 10:23 Discharge Data Data Completed and Pending: Completed Studies During Hospitalization Category Date Time Status CT abdomen pelvis w con* [id number] Stat Cat Scan 12/15/19 06:18 Completed XR chest 1V betzaida ble [id number] Stat Exams 12/15/19 06:17 Completed CV echo complete* [id number] Urgent Ultrasound 12/15/19 08:01 Completed US liver [id number] Ur gent Ultrasound 12/15/19 06:58 Completed Pending at discharge Category Date Time Status Comprehensive Met abolic Panel Routi ne Lab 12/19/19 09:45 Received Enteric Bacterial Panel by PCR Rout ine Lab 12/15/19 18:00 Results Labs from last 24 hours 12/19/19 12/19/19 09:45 05:15 Sodium Pending Cancelled Potassium Pending Cancelled Chloride Pending Cancelled Carbon Dioxide Pending Cancelled Anion Gap Pending Cancelled BUN Pending Cancelled Creatinine Pending Cancelled GFR Calculation Pending Cancelled Glucose Pending Cancelled Calculated Osmolal ity Pending Cancelled Calcium Pending Cancelled Total Bilirubin Pending Cancelled AST Pending Cancelled ALT Pending Cancelled Alkaline Phosphata se Pending Cancelled Total Protein Pending Cancelled Albumin Pending Cancelled Globulin Pending Cancelled Vitals: Last Vital Signs Temp 97.9 F 12/19/19 07:14 Pulse 85 12/19/19 09:30 Resp 15 12/19/19 07:14 BP 98/53 12/19/19 07:14 Pulse Ox 98 12/19/19 09:30 Discharge Plan Discharge Patient Disposition: Home Health Service Condition: Stable Prescriptions: New alprazolam 0.25 mg Tablet 0.25 mg PO BID PRN (Reason: Anxiety) 10 Days Qty: 10 RF: 0 Lasix 20 mg tablet 20 mg PO .4pm Qty: 30 RF: 0 Continued levothyroxine 75 mcg tablet 75 mcg PO DAILY RF: 0 aspirin [Adult Low Dose Aspirin] 81 mg tablet,delayed release (DR/EC) 81 mg PO DAILY RF: 0 escitalopram oxalate 5 mg tablet 5 mg PO DAILY RF: 0 multivitamin Tablet 1 tab PO DAILY RF: 0 cholecalciferol (vitamin D3) 25 mcg (1,000 unit) capsule 25 mcg PO DAILY RF: 0 Probiotic 3 billion cell capsule 3,000 mmu cells PO DAILY RF: 0 magnesium oxide,aspartate,citr 400 mg magnesium capsule 400 mg PO BID RF: 0 carvedilol 3.125 mg tablet 3.125 mg PO BID 90 Days Qty: 180 RF: 3 potassium chloride 10 mEq tablet extended release 10 meq PO DIRECTED Qty: 270 RF: 3 sucralfate [Carafate] 100 mg/mL suspension 1 gm PO Q6H Qty: 420 RF: 0 ondansetron 4 mg tablet,disintegrating 4 mg PO Q6H PRN (Reason: nausea and vomiting) Qty: 10 RF: 1 trazodone 50 mg Tablet 50 mg PO BEDTIME RF: 0 Changed furosemide 40 mg tablet 40 mg PO QAM Qty: 30 RF: 0 Zyrtec 10 mg tablet 10 mg PO DAILY PRN (Reason: allergy) Qty: 0 RF: 0 Discontinued donepezil 5 mg Tablet 5 mg PO DAILY RF: 0 Discharge Orders: Discharge Order (Routine); Ordered 12/19/19 Ordered By: Humphrey Tan Other Ambulatory Orders: DME: Oxygen (Order) Location: None Selected Ordered By: Humphrey Tan Referrals: Yaakov Vergara MD [Physician] - 4-7 days ([facility] will contact you to schedule an follow-up appointment with Dr. Vergara in 4 to 7 days. If you haven't heard from them by Saturday. Please call ) Camden Fletcher MD [Primary Care Provider] - 4-7 days ([facility] will contact you to schedule an follow-up appointment with Dr. Fletcher in 4 to 7 days. If you haven't heard from them by Saturday afternoon. Please, call [phone]) Discharge Diet: Cardiac Discharge Activity: Resume usual activity Patient Instructions: [place] Diet - Adult, Alprazolam (By mouth), Heart Failure (DC), Dilated Cardiomyopathy (DC), Low Sodium Diet (DC), CHF Stoplight Activity Restrictions/Additional Instructions: Your Lasix dose has been increased to 40 mg in morning and 20 mg in afternoon at 4 PM. I have discussed on a regular day when you are not having diarrhea or vomiting, you should restrict your fluid to around 1500 cc ;while on the days when you are having diarrhea you should increase it to 1800 cc. On the days of diarrhea some of the fluid which you intake should be Gatorade.(1 cup = 8 ounces = 240 cc) Please use bland diet low salt for next 1 to 2 weeks and advance eventually as tolerated. You should restrict your salt to around 2 g daily. Please follow-up with your primary care provider and Dr. Vergara in next 1 week. [employer] Whe[employer] [phone] Discharge Date/Time: 12/19/19 17:25 Discharge Attestations Time Spent in Discharge Care*: greater than 30 min Specific Discharge Activities: Specific discharge activities: educating patient, discussing with pcp/other providers, discussing with case manag ers/social workers/dc planners, documenting/other paperwork and evaluating patient/reviewing data Status at Discharge: Cognitive status at discharge: cognitively intact , Behavioral status at discharge: cooperative , Functional status at discharge: uses cane/walker Overall status at discharge: patient has a new baseline Quality Metrics Clinical Quality Measures During this hospital stay, did patient experience: None Coding Level of Care Code Acute Residential Monitor for Zeferino Fwd Diagnoses CHF NYHA class IV I50.9 Hypothyroidism E03.9 Sleep apnea G47.30 Hyperlipidemia E78.5 High transaminase levels R74.0 Shiga toxin 1 and Shiga toxin 2 detected B96.23
[2019-12-19 10:29] LABS: Alanine Aminotransferase 308 U/L (0-33); Alkaline Phosphatase 80 IU/L (35-105); Anion Gap 15.9 (5-19); Aspartate Amino Transferase 228 U/L (0-32); Blood Urea Nitrogen 22 mg/dL (8-23); Calcium 8.5 mg/dL (8.5-10.5); Carbon Dioxide 24 mmol/L (22-29); Chloride 100 mmol/L (98-107); Globulin 2.5 g/dL (1.3-4.6); Glucose 181 mg/dL (65-115); Osmolality Calculated 283 mOsm/kg (285-295); Potassium 3.9 mmol/L (3.5-5.1); Sodium 136 mmol/L (136-145); Total Bilirubin 1.1 mg/dL (0.15-1.2); Total Protein 6.5 g/dL (6.6-8.7)
--- NOTE | 2019-12-19 11:05 | PC.SOCIAL ---
Pg 2 IMM Explained to pt Pg 2 IMM. No questions voiced. Provided pt a copy. Signed, dated, & timed a copy & placed in chart.
[2019-12-19 11:27] LABS: ABG PCO2 32.7 mmHg (35-45); ABG PH Result 7.44 (7.35-7.45); Arterial Blood Gas Hematocrit 41.3 % (37-47); Base Excess ABG -1.2 mmol/L (-2.0-2.0); Blood Gas Operator Identificat glc; Blood Gas Sample Site Brachial, right; Blood Gas Sample Type Arterial; HCO3 ABG 22.2 mmol/L (22-26); Oxygen Device ROOM AIR; PO2 ABG 76.3 mmHg (80.0-100.0)
[2019-12-19 11:28] LABS: Blood Gas CCRB Time 1120
[2019-12-19] MEDS: enoxaparin 40 mg/0.4 mL Syringe SUBCUT (12:15)
--- NOTE | 2019-12-19 14:09 | P.PN_ITS ---
Subjective Subjective: Interval history: Feeling better today she is not short of breath but weak. She does not want to go to halfway. Blood pressure is stable heart rate is under control in sinus rhythm she is able to lay flat on the bed. She was drowsy because of Xanax. Medications: Reviewed: Yes Vitals/I&O/Wt Last Vital Signs Temp 97.4 F L 12/19/19 10:46 Pulse 83 12/19/19 10:46 Resp 12 12/19/19 10:46 BP 117/79 12/19/19 10:46 Pulse Ox 98 12/19/19 12:35 12/18/19 12/19/19 12/19/19 22:59 06:59 14:59 Intake Total 150 / 870 360 / 360 Output Total 250 / 400 575 / 975 Balance -100 / 470 -575 / -105 360 / 360 Weight last 48 hrs Weight 151 lb 6.4 oz Physical Exam Narrative: EXAM NARRATIVE: GENERAL: Patient is alert, awake and oriented x3. NECK: No jugular vein distension. HEENT: No cyanosis. No icterus. No pallor. HEART: Regular S1 and S2. No murmur, rub or gallop. LUNGS: Mild inspiratory crackles bilaterally. ABDOMEN: Soft, nontender and nondistended. Positive bowel sounds. No guarding, rebound or tenderness. CENTRAL NERVOUS SYSTEM: Grossly nonfocal. EXTREMITIES: Lower extremities without edema bilaterally. Urinary Catheter Management^: Mcpherson: Cath Placed During This Visit: yes Reason for Continuing Indwelling Catheter: Accurate Measurement of Urinary Output in Critically Ill Patients Urinary Catheter Date of Insertion: 12/16/19 Urinary Catheter Time of Insertion: 10:23 Data : 12/18/19 03:54 12/19/19 09:45 A&P Assessment and plan (1) CHF NYHA class IV: Status: Acute (2) Sleep apnea: Status: Acute (3) Muscular pain: Status: Acute (4) Dilated cardiomyopathy: Status: Acute Patient has responded well to IV Lasix, feels much better today. Will recommend continuing with IV Lasix for now. Close monitoring of intake and outputs. Please target net negative balance of 1 L by tomorrow. Can initiate Entresto. Continue Coreg. Will recommend LifeVest at the time of discharge. Please call with questions. Thank you for involving us with the care of this patient. Attestations Medical Necessity Statement*: As per medicine. Coding Level of Care Code Established Pt Acute Material Cutter for Chg Fwd Patient Type Established History Expanded Problem Focused Exam Expanded Problem Focused Medical Decision Making Moderate Complexity Diagnoses CHF NYHA class IV I50.9 Sleep apnea G47.30 Muscular pain M79.10 Dilated cardiomyopathy I42.0
--- NOTE | 2019-12-19 14:15 | PC.NURSE ---
no tami/arb due to low bp
--- NOTE | 2019-12-19 17:27 | PC.NURSE ---
discharge instructions given and explained to pt and pt's son.both verb understanding of instructions.home o2 has been delivered to home and portable tank to hospital.medications delivered to room from [facility].discharged via w/c to exit at this time.son to drive pt home.
--- NOTE | 2019-12-20 11:21 | PC.NURSE ---
life vest application was submitted to [employer].. called [facility] 12/19/19 to confirm receipt.
--- NOTE | 2019-12-29 14:28 | PC.SOCIAL ---
Addendum entered by Kathia Wynn RN 12/29/19 17:12: Noticed patient is being admitted therefore updated Dr Dejesus, admitting provider of results. Original Note: Culture results received from [facility] in [facility]. Called Dr Fletcher office and discussed the state confirmed Shiga toxin results and that she is being evaluated in the ED. Nurse Connie with Dr Fletcher moved her appt up from 01/04 to tomorrow at 1:30 to discuss results. It was noted that patient is currently being evaluated in ED. Went to speak with her but she had to use the restroom. Son was present and explained to him the results of the culture which confirmed from the state what was expected here. However, with her having ongoing concerns went ahead and made appt for Dr Fletcher at 1:30 tomorrow 12/29. Explained there was not an open slot but they are squeezing her in. Also explained if patient is admitted to hospital then will cancel this appt in the am. Son agreed and verbalized appreciation. He will also call tomorrow if admitted to reschedule her appt. Faxed results to Dr Fletcher office for review with confirmation that fax was sent successfully.
== END 2019-12-19 17:25 | disposition home health service (06) | DRG 291 ==
LOC: ER 06:14 → CSU 10:19
PROVIDERS: Family Medicine; Admitting Provider Family Medicine; PCP Family Medicine; Visit Provider Student in an Organized Health Care Education/Training Program
DX: I13.0 Hypertensive heart and chronic kidney disease with heart failure and stage 1 through stage 4 chronic kidney disease, or unspecified chronic kidney disease (principal); I50.23 Acute on chronic systolic (congestive) heart failure; I42.0 Dilated cardiomyopathy; K29.70 Gastritis, unspecified, without bleeding; B96.23 Unspecified Shiga toxin-producing Escherichia coli [E. coli] [STEC] as the cause of diseases classified elsewhere; E78.5 Hyperlipidemia, unspecified; G47.33 Obstructive sleep apnea (adult) (pediatric); Z79.82 Long term (current) use of aspirin; K21.9 Gastro-esophageal reflux disease without esophagitis; E03.9 Hypothyroidism, unspecified
CPT/HCPCS: 12345; 36415; 36600; 51702; 71045; 74177; 76705; 80053; 80074; 81003; 82274; 82803; 83630; 83690; 83735; 83880; 84100; 84439; 84443; 84484; 85025; 85610; 85730; 87506; 93005; 93306; 94660; 96372; 96375; 97116; 97161; 97530; 99284; G0378; J1650; J1940; J2270; J2405; Q9967

== ENCOUNTER 2019-12-29 12:09 | Inpatient (IN) | payer MEDICARE, OTHER, SELFPAY ==
[2019-12-29] VITALS (9 sets, daily range): BP systolic 97–125; BP diastolic 51–87; PULSE 58–101; RESP 14–20; TEMP 36.4–36.7; O2SAT 92–100; BMI 24.7
--- NOTE | 2019-12-29 12:39 | ECG_ITS ---
[facility] Test Date: 2019-12-29 Pat Name: Phuong Maya Department: Room: Gender: Female Sales Support Associate: : 1940 Requested By: Alba Marie Order Number: [id number] Darnell MD: Stanford Ware M.D. Measurements Intervals [place] Rate: 69 P: 37 NM: 170 QRS: -37 QRSD: 173 T: 128 QT: 486 QTc: 523 Interpretive Statements SINUS RHYTHM POSSIBLE LEFT ATRIAL ENLARGEMENT [-0.1mV P WAVE IN V1/V2] LEFT AXIS DEVIATION [QRS AXIS < -30] LEFT BUNDLE BRANCH BLOCK [120+ ms QRS DURATION, 80+ ms Q/S IN V1/V2, 85+ ms R IN I/aVL/V5/V6] Compared to ECG 12/17/2019 08:52:20 No significant changes Electronically Signed On 12-29-2019 13:43:14 CDT by Stanford Ware M.D. [id number]
--- NOTE | 2019-12-29 12:39 | XR_ITS ---
WS: [id number] EXAM: AP CHEST: PORTABLE UPRIGHT DATE OF EXAM: 12/29/2019, 1307 hours COMPARISON: Chest x-ray from 12/15/2019 HISTORY: Patient is 79 years old with dyspnea. FINDINGS: The cardiac silhouette is enlarged but similar The mediastinal contours show interval enlargement of both hilar regions felt to be vascular in nature. The pulmonary vascularity is congested with fi ndings suggesting some degree of interstitial edema. Slightly worsening infiltrate/atelectasis left lung base. Minimal infiltrate right medial lung base also appears slightly increased. Small left eff usion has developed. No pneumothorax. No acute bony abnormality is seen. XR/XR chest 1V portable [id number] IMPRESSION: Interval worsening of congestive heart failure.
--- NOTE | 2019-12-29 12:42 | W.ED.ABDPA2 ---
HPI - Abdominal Pain General: Chief Complaint: Abdominal Pain Stated Complaint: dehydrated Time Seen by Provider: 12/29/19 12:32 Source: patient and family Mode of arrival: wheelchair Limitations: no limitations History of Present Illness: HPI narrative: Phuong is a 79-year-old female who comes in complaining of epigastric pain. She is also had nausea and vomiting. Patient relates a long detailed history of nausea vomiting and abdominal pain including admission to the hospital for this. She is been out of the hospital just a little over a week. She also claims to have diarrhea but denies any blood in her stools or blood in her vomit. She denies any chest pain but does get short of breath when she exerts herself. Abdominal pain is described as sharp and radiates through to her back. Patient denies any urinary symptoms. She is had no vaginal discharge or bleeding. Patient states nothing makes her symptoms better or worse. Associated Symptoms: Reports nausea and vomiting; Denies chills, coffee ground emesis, constipation, GI cramping, dysuria, fever(s), heartburn, hematochezia, hematuria, hematemesis, melena and syncope Review of Systems Const: Denies: fever(s), chills, body aches, fatigue, malaise or diaphoresis Eyes: Denies: change in vision, blurry vision, photophobia, eye discomfort, eye discharge or eye redness ENMT: Denies: throat pain, odynophagia, hoarseness, swelling of lips/tongue, ear or mastoid pain, ear discharge, change in hearing or nasal discharge Card: Denies: chest pain, palpitations, irregular heart rhythm, edema, lightheadedness, syncope, pre-syncope, dyspnea on exertion or orthopnea Resp: Reports: dyspnea; Denies: productive cough, non-productive cough, wheezing, hemoptysis or chest congestion GI: Reports: abdominal pain, nausea and vomiting; Denies: hematemesis, coffee ground emesis, heartburn, constipation, GI cramping, hematochezia or melena : Denies: flank pain, dysuria, urinary frequency, urinary urgency or hematuria Musc: Denies: neck pain, back pain, extremity pain, extremity swelling, joint pain, joint swelling, joint redness, joint warmth or joint stiffness Skin/Breast: Denies: rash, pruritus, erythema or skin tenderness Neuro: Denies: headache(s), numbness in extremities, weakness in extremities, sensory changes, lack of coordination, difficulty walking, dizziness, vertigo, confusion, Slurred speech present or seizure-like activity Phu/Lymph: Denies: easy bruising, easy bleeding, petechiae, purpura or enlarged lymph nodes All/Imm: Denies: urticaria, throat swelling, tongue swelling, facial swelling or acute wheezing PFSH ED PFSH: Medical History (Updated 12/29/19 @ 14:06 by Alba Dominguez) Dilated cardiomyopathy Patient has dilated nonischemic cardiomyopathy. Currently well compensated. Continue to optimize medicine. Ejection fraction has dropped down around 20. Recommend LifeVest and ICD if patient heart function does not improve after optimization of medicine in 90 days. Diverticulitis Fibromyalgia GERD (gastroesophageal reflux disease) Hyperlipidemia Hypotension Hypothyroidism Rheumatoid arthritis Sleep apnea Patient is on CPAP. Surgical History H/O: hysterectomy History of appendectomy History of PTCA No intervention September 2019 Hx of cholecystectomy Family History (Updated 12/15/19 @ 11:08 by Phoebe Peterson DO) Mother Diabetes CAD (coronary artery disease) Father No problems noted. Other Stroke Social History (Updated 12/15/19 @ 11:09 by Phoebe Peterson DO) Smoking and tobacco status: never smoked Alcohol intake: never Physical Exam Const: COMMON NORMALS: no acute distress, patient oriented x3, no limitations, healthy appearing and well nourished GENERAL APPEARANCE: cooperative, well kempt and well developed HENMT: COMMON NORMALS: normocephalic, atraumatic, external ears normal, EAC's normal and Normal external nose present HEAD & SCALP: normal to inspection, normocephalic and atraumatic FACE & SINUS: normal facial exam and face symmetric NOSE: Normal external nose present and Normal nares present EXTERNAL EAR: Yes external ears normal EXTERNAL AUDITORY CANAL: EAC's normal MOUTH: Normal oral and palatal mucosa present, lip normal and tongue normal Eye: COMMON NORMALS: Equal, round and reactive pupils present and conjunctivae normal GENERAL EYE: appearance normal, both eyes and all related structures ALIGNMENT: Yes alignment normal PERIORBITAL: periorbital findings normal EYELID: eyelids normal CONJUNCTIVA: Yes conjunctivae normal SCLERA: sclerae normal PUPIL: Yes Equal, round and reactive pupils present Neck/C-Spine: COMMON NORMALS: full ROM, no lymphadenopathy, supple, no meningeal signs and no JVD GENERAL: Yes normal visual inspection and Yes trachea midline Chest: COMMONS NORMALS: normal inspection of the chest and normal palpation of entire chest wall Resp: COMMON NORMALS: normal respiratory effort, No retractions, No use of accessory muscles and clear to auscultation bilaterally EFFORT & INSPECTION: Yes able to speak in complete sentences and Yes symmetric chest movement AUSCULTATION: clear to auscultation bilaterally, no crackles, no rales, no rhonchi and no wheezes Cardio: COMMON NORMALS: no JVD, regular rate, regular rhythm, S1 normal heart sound present and S2 normal heart sound present RATE: regular rate RHYTHM: regular rhythm HEART SOUNDS: S1 normal heart sound present, S2 normal heart sound present, no click, no gallops, no murmurs, no rubs and abnormal split S2 GI: COMMON NORMALS: Soft to palpation and No hepatosplenomegaly present PALPATION: Yes Soft to palpation, Yes Tenderness to palpation present (GI) (Epiastric area), No Guarding due to palpation present (GI), No Rigid due to palpation, Yes No hepatosplenomegaly present, No Hernia present, No Palpable mass present and No Pulsatile mass present : COMMON NORMALS: Yes no CVA tenderness BLADDER/KIDNEY EXAM: Yes no CVA tenderness EXTERNAL FEMALE EXAM: No Hernia present Back/Pelvis: COMMON NORMALS: no CVA tenderness, thoracic and lumbar spine normal to inspection, no thoracic nor lumbar tenderness and thoraco-lumbar ROM normal Extremity: COMMON NORMALS: normal to inspection, full ROM, capillary refill normal, no joint enlargement, no clubbing, cyanosis or edema and no calf tenderness Neuro: COMMON NORMALS: patient oriented x3, CN's II-XII intact bilaterally, moves all extremities, no focal motor deficits and no sensory deficits noted MENINGEAL SIGNS: Yes no meningeal signs SPEECH: speech normal Psych: COMMON NORMALS: mental status grossly normal, Normal thought process present, cooperative, normal affect, speech normal and activity/motor behavior normal APPEARANCE: Yes well kempt SPEECH: Yes normal speech THOUGHT PROCESS: Normal thought process present Skin: COMMON NORMALS: no rashes or lesions noted, turgor normal, no jaundice, no petechiae and no mottling GENERAL SKIN EXAM: no rashes or lesions noted and turgor normal Course Vital Signs: Vital signs: Vital Signs Temperature 98.1 F 12/29/19 18:28 Pulse Rate 72 12/29/19 18:22 Respiratory Rate 20 H 12/29/19 18:22 Blood Pressure 115/68 12/29/19 18:22 Pulse Oximetry 97 12/29/19 18:22 MDM - Abdominal Pain MDM Narrative: Medical decision making narrative: 1404 -Case reviewed with Dr. Dejesus, she agrees admission but would like to go ahead with the CT the abdomen pelvis and wants to add a COVID-19 test. 1536 -CT results and covert test results reviewed Dr. Dejesus. She agrees to go admit the patient. Patient appears to be in acute exacerbation of congestive heart failure. It was felt that she would need possible cardiac synchrony device placed. Dr. Dejesus will panel from this point on. Medical Records: Attestation: I reviewed the patient's medical records. Lab Data: Attestation: I reviewed the patient's lab results. Labs: Lab Results 12/29/19 12/29/19 12/29/19 Range/Units 12:42 12:42 12:42 WBC 6.8 (4.0-10.0) 10^3/ uL RBC 4.84 (4.1-5.3) 10^6/u L Hgb 13.8 (11.5-15.3) g/dL Hct 45.3 (37.0-47.0) % MCV 93.6 (81-99) fL MCH 28.5 (28.0-34.0) pg MCHC 30.5 (30.0-36.0) g/dL RDW 18.6 H (12.1-15.1) % Plt Count 212 (130-400) 10^3/c mm MPV 10.8 H (7.4-10.4) fL Neut % (Auto) 73.3 % Lymph % (Auto) 14.3 % [place] % (Auto) 7.4 % Eos % (Auto) 3.7 % Baso % (Auto) 0.9 % Neut # (Auto) 4.98 (1.8-7.7) 10^3/u L Lymph # (Auto) 1.0 (0.8-4.8) 10^3/u L [place] # (Auto) 0.5 (0.2-0.9) 10^3/u L Eos # (Auto) 0.3 (0.0-0.8) 10^3/u L Baso # (Auto) 0.1 (0.0-0.1) 10^3/u L Nucleated RBC % (a uto) 0 % Nucleated RBCs # 0.0 /100WBC Sodium 135 L (136-145) mmol/L Potassium 3.7 (3.5-5.1) mmol/L Chloride 99 (98-107) mmol/L Carbon Dioxide 23 (22-29) mmol/L Anion Gap 16.7 (5-19) BUN 20 (8-23) mg/dL Creatinine 1.2 H (0.5-0.9) mg/dL GFR Calculation Not Reportable Glucose 132 H (65-115) mg/dL Calculated Osmolal ity 278 L (285-295) mOsm/k g Calcium 9.1 (8.5-10.5) mg/dL Total Bilirubin 1.6 H (0.15-1.2) mg/dL AST 71 H (0-32) U/L ALT 136 H (0-33) U/L Alkaline Phosphata se 86 (35-105) IU/L Troponin T Baselin e 15 H (0-10) ng/L Troponin T 120 Min [place] (0-10) ng/L Delta Troponin T (0-10) ABS# NT-Pro-B Natriuret Pep (0-450) pg/mL Total Protein 6.3 L (6.6-8.7) g/dL Albumin 3.9 (3.5-5.2) g/dL Globulin 2.4 (1.3-4.6) g/dL Lipase 42 (13-60) U/L Urine Color (Yellow) Urine Appearance (CLEAR) Urine pH (5-7) Ur Specific Gravit y (1.005-1.030) Urine Protein (Negative) Urine Glucose (UA) (Normal) Urine Ketones (Negative) Urine Blood (Negative) Urine Nitrate (Negative) Urine Bilirubin (NEGATIVE) Urine Urobilinogen (Negative) mg/dL Ur Leukocyte [place] (Negative) Urine RBC (0-2) /hpf Urine WBC (0-5) /hpf Ur Squamous Epith Cells (0-5) Amorphous Sediment Urine Bacteria (NONE) Hyaline Casts SARS-CoV-2 Ag (Rap id) (Negative) 12/29/19 12/29/19 12/29/19 Range/Units 12:42 14:00 14:32 WBC (4.0-10.0) 10^3/ uL RBC (4.1-5.3) 10^6/u L Hgb (11.5-15.3) g/dL Hct (37.0-47.0) % MCV (81-99) fL MCH (28.0-34.0) pg MCHC (30.0-36.0) g/dL RDW (12.1-15.1) % Plt Count (130-400) 10^3/c mm MPV (7.4-10.4) fL Neut % (Auto) % Lymph % (Auto) % [place] % (Auto) % Eos % (Auto) % Baso % (Auto) % Neut # (Auto) (1.8-7.7) 10^3/u L Lymph # (Auto) (0.8-4.8) 10^3/u L [place] # (Auto) (0.2-0.9) 10^3/u L Eos # (Auto) (0.0-0.8) 10^3/u L Baso # (Auto) (0.0-0.1) 10^3/u L Nucleated RBC % (a uto) % Nucleated RBCs # /100WBC Sodium (136-145) mmol/L Potassium (3.5-5.1) mmol/L Chloride (98-107) mmol/L Carbon Dioxide (22-29) mmol/L Anion Gap (5-19) BUN (8-23) mg/dL Creatinine (0.5-0.9) mg/dL GFR Calculation Glucose (65-115) mg/dL Calculated Osmolal ity (285-295) mOsm/k g Calcium (8.5-10.5) mg/dL Total Bilirubin (0.15-1.2) mg/dL AST (0-32) U/L ALT (0-33) U/L Alkaline Phosphata se (35-105) IU/L Troponin T Baselin e (0-10) ng/L Troponin T 120 Min [place] 15.27 H (0-10) ng/L Delta Troponin T 0.27 (0-10) ABS# NT-Pro-B Natriuret Pep 7414 H (0-450) pg/mL Total Protein (6.6-8.7) g/dL Albumin (3.5-5.2) g/dL Globulin (1.3-4.6) g/dL Lipase (13-60) U/L Urine Color Yellow (Yellow) Urine Appearance Clear (CLEAR) Urine pH 5 (5-7) Ur Specific Gravit y 1.020 (1.005-1.030) Urine Protein Neg (Negative) Urine Glucose (UA) Norm (Normal) Urine Ketones Negative (Negative) Urine Blood Neg (Negative) Urine Nitrate Negative (Negative) Urine Bilirubin Neg (NEGATIVE) Urine Urobilinogen Norm (Negative) mg/dL Ur Leukocyte [place] Negative (Negative) Urine RBC None (0-2) /hpf Urine WBC 0-4 H (0-5) /hpf Ur Squamous Epith Cells 0-4 H (0-5) Amorphous Sediment Not Reportable Urine Bacteria 2+ H (NONE) Hyaline Casts 15-25 H SARS-CoV-2 Ag (Rap id) (Negative) 12/29/19 Range/Units 14:45 WBC (4.0-10.0) 10^3/ uL RBC (4.1-5.3) 10^6/u L Hgb (11.5-15.3) g/dL Hct (37.0-47.0) % MCV (81-99) fL MCH (28.0-34.0) pg MCHC (30.0-36.0) g/dL RDW (12.1-15.1) % Plt Count (130-400) 10^3/c mm MPV (7.4-10.4) fL Neut % (Auto) % Lymph % (Auto) % [place] % (Auto) % Eos % (Auto) % Baso % (Auto) % Neut # (Auto) (1.8-7.7) 10^3/u L Lymph # (Auto) (0.8-4.8) 10^3/u L [place] # (Auto) (0.2-0.9) 10^3/u L Eos # (Auto) (0.0-0.8) 10^3/u L Baso # (Auto) (0.0-0.1) 10^3/u L Nucleated RBC % (a uto) % Nucleated RBCs # /100WBC Sodium (136-145) mmol/L Potassium (3.5-5.1) mmol/L Chloride (98-107) mmol/L Carbon Dioxide (22-29) mmol/L Anion Gap (5-19) BUN (8-23) mg/dL Creatinine (0.5-0.9) mg/dL GFR Calculation Glucose (65-115) mg/dL Calculated Osmolal ity (285-295) mOsm/k g Calcium (8.5-10.5) mg/dL Total Bilirubin (0.15-1.2) mg/dL AST (0-32) U/L ALT (0-33) U/L Alkaline Phosphata se (35-105) IU/L Troponin T Baselin e (0-10) ng/L Troponin T 120 Min [place] (0-10) ng/L Delta Troponin T (0-10) ABS# NT-Pro-B Natriuret Pep (0-450) pg/mL Total Protein (6.6-8.7) g/dL Albumin (3.5-5.2) g/dL Globulin (1.3-4.6) g/dL Lipase (13-60) U/L Urine Color (Yellow) Urine Appearance (CLEAR) Urine pH (5-7) Ur Specific Gravit y (1.005-1.030) Urine Protein (Negative) Urine Glucose (UA) (Normal) Urine Ketones (Negative) Urine Blood (Negative) Urine Nitrate (Negative) Urine Bilirubin (NEGATIVE) Urine Urobilinogen (Negative) mg/dL Ur Leukocyte [place] (Negative) Urine RBC (0-2) /hpf Urine WBC (0-5) /hpf Ur Squamous Epith Cells (0-5) Amorphous Sediment Urine Bacteria (NONE) Hyaline Casts SARS-CoV-2 Ag (Rap id) Negative (Negative) Imaging Data ^: CT Abd/Pel: Radiologist's impression: [address] [address] [address] Scan Report Signed Patient: Phuong Maya Unit #: [id number] : 1940 Age/Sex: 79 / F ADM Date: 12/29/19 Loc: ER Room/Bed: Attending Dr: Ordering Provider/Ordering MD: Alba Dominguez DO Date of Service: 12/29/19 Procedure(s): CT abdomen pelvis w con* [id number] Accession Number(s): [id number] Report Number: [id number] WS: [id number] CT ABDOMEN AND PELVIS WITH CONTRAST HISTORY: Abdominal pain TECHNIQUE: Imaging performed of the abdomen and pelvis with IV contrast. Single phase imaging of the abdomen. Coronal and sagittal reformats are submitted. All CT scans at [facility] use at least one of these dose optimization techniques: automated exposure control; mA and/or kV adjustment per patient size (includes targeted exams where dose is matched to clinical indication); or iterative reconstruction. IV CONTRAST: Visipaque 320; 95 mL IV. Oral contrast: No DLP: 514.77 mGy.cm COMPARISON: 12/15/2019 Lower thorax: Small bilateral pleural effusions without progression. Mild dependent changes at the lung bases. Markedly enlarged cardiac chambers. Tricuspid regurgitation into hepatic veins. No hiatal hernia. Liver/biliary system: Liver is enlarged extending over length of 20 cm. There is hepatic congestion is seen on the prior study. Hepatic steatosis along the falciform ligament. Gallbladder: Prior cholecystectomy. Pancreas: Normal. Spleen: Normal size spleen. Again noted is a low-attenuation nodule measuring 12 mm. Adrenal glands: Normal. Right kidney: Mild atrophy of the RIGHT kidney. No obstruction. Left kidney: Normal. Aorta: Normal. Lymphadenopathy: No significant adenopathy. Free fluid: There is a small amount of ascites. The amount of ascites has slightly increased adjacent to the liver and along the paracolic gutter. GI tract: No GI tract obstruction. Numerous diverticula in the descending and sigmoid colon without inflammation. No residual edema in the small bowel loops the LEFT lower abdomen. Prior appendectomy. Abdominal wall: Unremarkable abdominal wall. No hernia. Pelvis: Free fluid in the pelvis is similar to the prior study. Prior hysterectomy. Bones: Mild osteopenia. Similar appearance to the bones as 08/29/2018. CT/CT abdomen pelvis w con* [id number] IMPRESSION: 1. Small bilateral pleural effusions without progression since 12/15/2019. 2. Small amount of peritoneal ascites with minimal increase. 3. Tricuspid regurgitation with hepatic congestion. 4. Markedly enlarged heart. 5. Resolved enteritis. 6. No obstruction. Dictated By: Clare Bustamante DO Signed By: Clare Bustamante DO Signed Date/Time: 12/29/19 1501 DD/ 1440 EKG Data ^: EKG 1: Attestation: I personally reviewed and interpreted this EKG as follows: EKG interpretation date: 12/29/19 EKG interpretation time: 12:57 Interpretation: Normal sinus rhythm at 69 beats a minute, left bundle branch block, otherwise no acute ST or T wave changes. EKG 2: Attestation: I personally reviewed and interpreted this EKG as follows: EKG interpretation date: 12/29/19 EKG interpretation time: 14:38 Interpretation: Normal sinus rhythm at 70 beats a minute, left bundle branch block. Discharge Plan Discharge Patient Disposition: Admitted As Inpatient Admit Provider: Christy Dejesus Clinical Impression: Acute exacerbation of congestive heart failure Qualifiers: Heart failure type: unspecified Qualified Code(s): I50.9 - Heart failure, unspecified Abdominal pain Qualifiers: Abdominal location: generalized Qualified Code(s): R10.84 - Generalized abdominal pain Condition: Stable Referrals: Camden Fletcher MD [Primary Care Provider] - Discharge Date/Time: 12/29/19 18:25 Coding Level of Care Code ED Database Marketing Specialist for Chg Fwd Exam Comprehensive
[2019-12-29] MEDS: sodium chloride 0.9% 1,000 ML 100 ML IV (12:48)
[2019-12-29] MEDS: ondansetron 2 mg/ML SDV 2 mL 4 MG IVP (12:49)
[2019-12-29 12:50] LABS: Basophils # 0.1 10^3/uL (0.0-0.1); Basophils % 0.9 %; Eosinophils # 0.3 10^3/uL (0.0-0.8); Eosinophils % 3.7 %; Hematocrit 45.3 % (37.0-47.0); Hemoglobin 13.8 g/dL (11.5-15.3); Lymphocytes % 14.3 %; Mean Corpuscular HGB Conc 30.5 g/dL (30.0-36.0); Mean Corpuscular Hemoglobin 28.5 pg (28.0-34.0); Mean Corpuscular Volume 93.6 fL (81-99); Mean Platelet Volume 10.8 fL (7.4-10.4); Monocytes # 0.5 10^3/uL (0.2-0.9); Monocytes % 7.4 %; Neutrophils # 4.98 10^3/uL (1.8-7.7); Neutrophils % 73.3 %; Nucleated Red Blood Cells % 0 %; Platelet Count 212 10^3/cmm (130-400); Red Blood Count 4.84 10^6/uL (4.1-5.3); Red Cell Distribution Width 18.6 % (12.1-15.1); White Blood Count 6.8 10^3/uL (4.0-10.0)
[2019-12-29 13:08] LABS: Alanine Aminotransferase 136 U/L (0-33); Albumin Level 3.9 g/dL (3.5-5.2); Alkaline Phosphatase 86 IU/L (35-105); Anion Gap 16.7 (5-19); Aspartate Amino Transferase 71 U/L (0-32); Blood Urea Nitrogen 20 mg/dL (8-23); Calcium 9.1 mg/dL (8.5-10.5); Carbon Dioxide 23 mmol/L (22-29); Chloride 99 mmol/L (98-107); Globulin 2.4 g/dL (1.3-4.6); Glucose 132 mg/dL (65-115); Lipase 42 U/L (13-60); Osmolality Calculated 278 mOsm/kg (285-295); Potassium 3.7 mmol/L (3.5-5.1); Sodium 135 mmol/L (136-145); Total Bilirubin 1.6 mg/dL (0.15-1.2); Total Protein 6.3 g/dL (6.6-8.7)
[2019-12-29 13:11] LABS: Troponin(5th) Baseline 15 ng/L (0-10)
--- NOTE | 2019-12-29 13:50 | CT_ITS ---
WS: [id number] CT ABDOMEN AND PELVIS WITH CONTRAST HISTORY: Abdominal pain TECHNIQUE: Imaging performed of the abdomen and pelvis with IV contrast. Single phase imaging of the abdomen. Coronal and sagittal reformats are submitted. All CT scans at [facility] use at least one of these dose optimization techniques: automated exposure control; mA and/or kV adjustment per patient size (includes targeted exams where dose is matched to clinical indication); or iterativ e reconstruction. IV CONTRAST: Visipaque 320; 95 mL IV. Oral contrast: No DLP: 514.77 mGy.cm COMPARISON: 12/15/2019 Lower thorax: Small bilateral pleural effusions without progression. Mild dependent changes at the thais ng bases. Markedly enlarged cardiac chambers. Tricuspid regurgitation into hepatic veins. No hiatal h ernia. Liver/biliary system: Liver is enlarged extending over length of 20 cm. There is hepatic congestion i s seen on the prior study. Hepatic steatosis along the falciform ligament. Gallbladder: Prior cholecystectomy. Pancreas: Normal. Spleen: Normal size spleen. Again noted is a low-attenuation nodule measuring 12 mm. Adrenal glands: Normal. Right kidney: Mild atrophy of the RIGHT kidney. No obstruction. Left kidney: Normal. Aorta: Normal. Lymphadenopathy: No significant adenopathy. Free fluid: There is a small amount of ascites. The amount of ascites has slightly increased adjacent to the liver and along the paracolic gutter. GI tract: No GI tract obstruction. Numerous diverticula in the descending and sigmoid colon without i nflammation. No residual edema in the small bowel loops the LEFT lower abdomen. Prior appendectomy. Abdominal wall: Unremarkable abdominal wall. No hernia. Pelvis: Free fluid in the pelvis is similar to the prior study. Prior hysterectomy. Bones: Mild osteopenia. Similar appearance to the bones as 08/29/2018. CT/CT abdomen pelvis w con* [id number] IMPRESSION: 1. Small bilateral pleural effusions without progression since 12/15/2019. 2. Small amount of peritoneal ascites with minimal increase. 3. Tricuspid regurgitation with hepatic congestion. 4. Markedly enlarged heart. 5. Resolved enteritis. 6. No obstruction.
[2019-12-29] MEDS: iohexol 300 mg/mL 100 mL Btl IV (14:22)
[2019-12-29 14:28] LABS: Bilirubin Urine Neg (NEGATIVE); Blood Urine Neg (Negative); Glucose Urine UA Norm (Normal); Ketones Urine Negative (Negative); Leukocyte Esterase Urine Negative (Negative); Nitrate Urine Negative (Negative); Protein Urine Neg (Negative); Urine Appearance Clear (CLEAR); Urine Color Yellow (Yellow); Urobilinogen Urine Norm (Negative); pH Urine 5 (5-7)
[2019-12-29 14:29] LABS: Hyaline Casts Urine 15-25
[2019-12-29 14:30] LABS: Add Urine Culture? No; Bacteria Urine 2+; Squamous Epithelial Cell Urine 0-4 (0-5); WBC Urine 0-4 /hpf (0-5)
[2019-12-29 14:30] LABS: NT Pro B Type Natriuretic Pept 7414 pg/mL (0-450)
--- NOTE | 2019-12-29 14:39 | ECG_ITS ---
[facility] Test Date: 2019-12-29 Pat Name: Phuong Maya Department: Room: Gender: Female [employer] Agent: : 1940 Requested By: Alba Marie Order Number: [id number] Darnell MD: Stnaford Ware M.D. Measurements Intervals [place] Rate: 70 P: 60 MT: 180 QRS: -59 QRSD: 169 T: 73 QT: 477 QTc: 517 Interpretive Statements SINUS RHYTHM LEFT ATRIAL ENLARGEMENT [-0.15mV P WAVE IN V1/V2] LEFT AXIS DEVIATION [QRS AXIS < -30] LEFT BUNDLE BRANCH BLOCK [120+ ms QRS DURATION, 80+ ms Q/S IN V1/V2, 85+ ms R IN I/aVL/V5/V6] Compared to ECG 12/29/2019 12:57:00 No significant changes Electronically Signed On 12-29-2019 17:22:01 CDT by Stanford Ware M.D. [id number] f
--- NOTE | 2019-12-29 14:49 | PC.NURSE ---
COVID SARS swab collected via nasopharyngeal swab and sent to lab at this time.
[2019-12-29 14:58] LABS: Troponin 5 2HR 15.27 ng/L (0-10); Troponin 5 2HR Delta 0.27 ABS# (0-10)
[2019-12-29 15:18] LABS: SARS Covid-2 Antigen Negative (Negative)
[2019-12-29] MEDS: FUROsemide 10 mg/mL SDV 4mL 40 MG IVP (16:04)
--- NOTE | 2019-12-29 16:48 | PC.NURSE ---
Pt up to restroom at this time with assist from this nurse. Pt transferred well to with standby assist
--- NOTE | 2019-12-29 17:15 | PM.HP ---
Providers/Chief Complaint Admitting Physician: Christy Dejesus MD Primary Care Provider: Camden Fletcher MD Chief Complaint: dehydrated History of Present Illness Phuong Maya is a 79 year old female with a past medical history of severe systolic congestive heart failure, hypertension and chronic kidney disease recently admitted with ETEC gastroenteritis and acue decompensated CHF between 12/14-12/18. Her Ef on last admission had reduced from ~30% to 15%. Patient was admitted to the hospital and started on IV diuresis because of concern for NYHA class IV CHF. Her diuresis was very slow and gradual because of poor oral intake and borderline blood pressures. Plan was to start Entresto however this was limited by borderline blood pressures. She was to receive a life vest at home, she states this was delivered however but her feel very tight and restricted, therefore she did not wear it. She was discharged home on Lasix 40 mg in morning and 20 mg at 4 PM every day. She has been advised to restrict her fluid intake to around 1500 cc on a regular day and up to 1800 cc on the day of diarrhea and vomiting. She is also advised to take at least half a glass of Gatorade on the days of diarrhea. She is advised to take 2 g salt diet. She states she has been following instrcutions. Since discharge she has continued to feel ill, generalized weakness, continues to have intermittent diarrhea and multiple episodes of vomiting. HEr nurse found her to be dehydrated and sent her to the ER. Here she was noted to have heart failure and was given lasix iv 40mg. CXR sghowed worsened congestion. BNP ~7000, unchanged [facility]. She endorsed being SOB. COVID ag screen is negative. Review of Systems General: Reports: 10 or more systems reviewed and unremarkable except in HPI and below Const: Denies: fever(s), chills or body aches Eyes: Denies: change in vision, blurry vision or photophobia ENMT: Reports: hoarseness; Denies: throat pain, enlarged tonsils, odynophagia or nasal congestion Card: Denies: chest pain, palpitations, irregular heart rhythm, edema, swelling of feet/ankles, lightheadedness, pre-syncope, dyspnea on exertion or orthopnea Resp: Denies: dyspnea, productive cough, non-productive cough, wheezing, stridor, pain on inspiration, change in phlegm color, hemoptysis or chest congestion GI: Denies: abdominal pain, nausea, vomiting, hematemesis, coffee ground emesis, dysphagia, heartburn, diarrhea, constipation, GI cramping, change in stool character, hematochezia or melena : Denies: flank pain, difficulty voiding, dysuria, urinary frequency, urinary urgency, urinary hesitancy or hematuria Musc: Denies: neck pain, back pain, extremity pain, joint swelling, joint warmth or deformity Neuro: Denies: headache(s), numbness in extremities, weakness in extremities, sensory changes, difficulty walking, frequent falls, dizziness, vertigo, behavioral changes, Slurred speech present or seizure-like activity Psych: Denies: anxiety, depression, suicidal ideation or homicidal ideation Endo: Denies: polyuria, polydipsia, tired all the time, cold intolerance or hot flashes Phu/Lymph: Denies: easy bruising or easy bleeding Medications/Allergies Home Medications Medication Instructions Recorded Confirmed Last Taken Type carvedilol 3.125 mg tablet 3.125 mg PO BID 90 Days #180 tab 08/03/19 12/29/19 12/29/19 Rx aspirin 81 mg tablet,delayed 81 mg PO DAILY 10/02/19 12/29/19 12/29/19 History release cholecalciferol (vitamin D3) 25 25 mcg PO DAILY 10/02/19 12/29/19 12/27/19 History mcg (1,000 unit) capsule escitalopram oxalate 5 mg tablet 5 mg PO DAILY 10/02/19 12/29/19 12/29/19 History lactobacillus combination no.4 3 See Rx Instructions .ROUTE .COMPLEX 10/02/19 12/29/19 12/29/19 History billion cell capsule levothyroxine 75 mcg tablet 75 mcg PO DAILY 10/02/19 12/29/19 12/28/19 History ondansetron 4 mg PO Q6H PRN #10 tab 12/06/19 12/29/19 12/28/19 Rx trazodone 50 mg PO BEDTIME PRN 12/15/19 12/29/19 12/28/19 History cetirizine [Zyrtec] 10 mg PO DAILY PRN #0 tab 12/19/19 12/29/19 12/14/19 Rx furosemide 40 mg PO QAM #30 tab 12/19/19 12/29/19 12/29/19 Rx furosemide [Lasix] 20 mg PO .4pm #30 tab 12/19/19 12/29/19 12/28/19 Rx PNV cmb#95-ferrous fumarate-FA 1 tab PO DAILY 12/29/19 12/29/19 12/27/19 History [] Pepto-Bismol See Rx Instructions .ROUTE .COMPLEX 12/29/19 12/29/19 Unknown History alprazolam 0.25 mg PO BID PRN 12/29/19 12/29/19 12/28/19 History atorvastatin See Rx Instructions .ROUTE .COMPLEX 12/29/19 12/29/19 Unknown History potassium chloride See Rx Instructions .ROUTE .COMPLEX 12/29/19 12/29/19 12/28/19 History Allergies Allergy/AdvReac Type Severity Reaction Status Date / Time acetaminophen [From Tylenol] Allergy Unknown Unknown Verified 12/29/19 13:48 PFSH Acute PFSH: Medical History Dilated cardiomyopathy Patient has dilated nonischemic cardiomyopathy. Currently well compensated. Continue to optimize medicine. Ejection fraction has dropped down around 20. Recommend LifeVest and ICD if patient heart function does not improve after optimization of medicine in 90 days. Diverticulitis Fibromyalgia GERD (gastroesophageal reflux disease) Hyperlipidemia Hypotension Hypothyroidism Rheumatoid arthritis Sleep apnea Patient is on CPAP. Surgical History H/O: hysterectomy History of appendectomy History of PTCA No intervention September 2019 Hx of cholecystectomy Family History Mother Diabetes CAD (coronary artery disease) Father No problems noted. Other Stroke Social History Smoking and tobacco status: never smoked Alcohol intake: never Vitals/I&O/Wt Last Vital Signs Temp 97.9 F 12/29/19 12:23 Pulse 71 12/29/19 15:54 Resp 18 12/29/19 15:54 BP 108/73 12/29/19 15:54 Pulse Ox 98 12/29/19 15:54 Weight last 48 hrs Weight 63.503 kg Physical Exam Narrative: EXAM NARRATIVE: GEN: Awake, alert and oriented, no acute distress , clinically appears to be dry and dehydrated. CVS: S1S2 N RS: CTA B/L anteriorly Abd: Soft, nt/nd , bs+ [employer] DEVELOPER: no focal neuro deficits Data : 12/30/19 03:40 12/30/19 03:40 A&P Assessment and plan (1) CHF NYHA class IV: Status: Acute Qualifiers: Congestive heart failure type: systolic Congestive heart failure chronicity: acute on chronic Qualified Code(s): I50.23 - Acute on chronic systolic (congestive) heart failure (2) Dilated cardiomyopathy: Status: Acute (3) Diarrhea: Status: Acute Qualifiers: Diarrhea type: infectious Qualified Code(s): A09 - Infectious gastroenteritis and colitis, unspecified (4) High transaminase levels: Status: Acute (5) Sleep apnea: Status: Acute Qualifiers: Sleep apnea type: obstructive Qualified Code(s): G47.33 - Obstructive sleep apnea (adult) (pediatric) (6) Hypothyroidism: Status: Acute Qualifiers: Hypothyroidism type: unspecified Qualified Code(s): E03.9 - Hypothyroidism, unspecified Additional A&P Information # dilated non ischemic cardiomyopathy with decompensation s/p iv lasix in the ER, hold off on further doses as clinically appears to be dry at this time CXR with increasedc congestion saturating well on 2lpm [place] Cardiology consult for optimization of CHF- on previous visit there was consideration for starting Entresto, life vest was arranged but patient refused. # Diarrhea: shiga toxin producing e.coli on stool cx, diarrhea 1-2 episodes per day, avoid using abx as can precipitate HUS. Will monitor for diarrheal movements, has not had any diarrhea today. Will use prn imodium if needed Attestations Medical Necessity Statement*: anticipate less than 2 midnight for optimization of CHF Coding Level of Care Code Acute Perfect Binder Feeder Offbearer for Chg Fwd Diagnoses CHF NYHA class IV I50.23 Congestive heart failure type: systolic Congestive heart failure chronicity: acute on chronic Dilated cardiomyopathy I42.0 Diarrhea A09 Diarrhea type: infectious High transaminase levels R74.0 Sleep apnea G47.33 Sleep apnea type: obstructive Hypothyroidism E03.9 Hypothyroidism type: unspecified
--- NOTE | 2019-12-29 18:23 | PC.NURSE ---
pt arrived from ed to [facility] at 0622.
[2019-12-29] MEDS: enoxaparin 40 mg/0.4 mL Syringe SUBCUT (18:36)
[2019-12-29] MEDS: carvedilol 3.125 mg Tablet PO (18:36)
--- NOTE | 2019-12-29 19:11 | PC.NURSE ---
PT STATES THAT THEY ARE REALLY WEAK. PT DENIES PAIN. PT C/O OF BEING SICK TO STOMACH. PT IS REQUESTING XANAX AT BED TIME. WILL CONTINUE TO MONITOR.
[2019-12-29 19:23] LABS: Troponin 5 6HR 14.45 ng/L (0-10)
[2019-12-29 19:30] LABS: Troponin 5 6HR Delta -0.55 ng/L (0-12)
[2019-12-29] MEDS: ALPRAZolam 0.25 mg Tablet PO (19:56)
[2019-12-29] MEDS: ondansetron 4 MG Tablet PO (19:56)
[2019-12-29] MEDS: trazodone 50 mg Tablet PO (21:30)
[2019-12-30 04:00] VITALS: BP 105/64; PULSE 63; RESP 14; TEMP 36.8; O2SAT 99
[2019-12-30 04:08] LABS: Basophils % 0.6 %; Eosinophils # 0.3 10^3/uL (0.0-0.8); Eosinophils % 4.2 %; Hematocrit 38.6 % (37.0-47.0); Lymphocytes # 0.7 10^3/uL (0.8-4.8); Lymphocytes % 10.5 %; Mean Corpuscular HGB Conc 31.1 g/dL (30.0-36.0); Mean Corpuscular Hemoglobin 28.7 pg (28.0-34.0); Mean Corpuscular Volume 92.3 fL (81-99); Mean Platelet Volume 10.7 fL (7.4-10.4); Monocytes # 0.4 10^3/uL (0.2-0.9); Monocytes % 6.5 %; Neutrophils % 77.9 %; Nucleated Red Blood Cells % 0 %; Platelet Count 181 10^3/cmm (130-400); Red Blood Count 4.18 10^6/uL (4.1-5.3); Red Cell Distribution Width 18.3 % (12.1-15.1); White Blood Count 6.2 10^3/uL (4.0-10.0)
[2019-12-30 04:38] LABS: Alanine Aminotransferase 99 U/L (0-33); Albumin Level 3.5 g/dL (3.5-5.2); Alkaline Phosphatase 71 IU/L (35-105); Anion Gap 13.9 (5-19); Aspartate Amino Transferase 44 U/L (0-32); Blood Urea Nitrogen 16 mg/dL (8-23); Calcium 8.2 mg/dL (8.5-10.5); Carbon Dioxide 25 mmol/L (22-29); Chloride 104 mmol/L (98-107); Globulin 1.8 g/dL (1.3-4.6); Glucose 91 mg/dL (65-115); Osmolality Calculated 286 mOsm/kg (285-295); Sodium 140 mmol/L (136-145); Total Bilirubin 1.5 mg/dL (0.15-1.2); Total Protein 5.3 g/dL (6.6-8.7)
[2019-12-30 04:41] LABS: Potassium 2.9 mmol/L (3.5-5.1)
[2019-12-30] MEDS: potassium chloride premix 40 MEQ/100 ML PREMIX 25 MEQ IV (05:16)
--- NOTE | 2019-12-30 05:19 | PC.NURSE ---
PT DENIES PAIN. C/O NAUSEA. PT HAS HAD 0 EMESIS ON THIS SHIFT. VS WNL. POTASSIUM WAS LOW. DR CEDRIC Booth-MARIIA 40MEQ. WILL GIVE REPORT TO ONCOMING NURSE. WILL CONTINUE TO MONITOR.
[2019-12-30] MEDS: ondansetron 4 MG Tablet PO (06:30)
[2019-12-30 07:15] VITALS: BP 102/70; PULSE 76; RESP 21; TEMP 36.5; O2SAT 98
--- NOTE | 2019-12-30 07:39 | PC.NURSE ---
Patient resting in bed. Patient reports pain in her arm at IV site attributed to infusion of K rider. IV flushed, blood return checked, asmptomatic. K rider resumed. Ice pack placed on affected arm. Patient states the burning sensation is subsiding. Nurse to continue to monitor.
--- NOTE | 2019-12-30 08:03 | PC.SOCIAL ---
Cancelled appt with Dr Fletcher for today at 1:30 since patient was admitted. Dr Dejesus responded regarding micro culture from previous admission regarding the state confirmed Shiga Toxin I and II. Nothing further needed.
[2019-12-30] MEDS: aspirin 81 mg EC Tablet PO (09:45)
[2019-12-30] MEDS: levothyroxine 150 mcg Tablet 75 MCG PO (09:45)
[2019-12-30] MEDS: carvedilol 3.125 mg Tablet PO ×2 (09:46→17:34)
[2019-12-30] MEDS: escitalopram 10 mg Tablet 5 MG PO (09:46)
[2019-12-30 10:53] VITALS: BP 101/63; PULSE 72; RESP 19; TEMP 36.7; O2SAT 97
--- NOTE | 2019-12-30 12:41 | PM.CONSULT ---
Providers/Reason For Consult Consulting Physican/Specialty*: DARIEL Peraza MD /cardiology Reason for Consult*: Patient with a decompensated heart failure, nonischemic cardiomyopathy Attending Physician: Christy Dejesus MD Primary Care Provider: Camden Fletcher MD History of Present Illness History of Present Illness Phuong Maya is a 79 year old female is admitted to hospital through the emergency room, where she presented with complaints of nausea ,vomiting diarrhea and shortness of breath. Patient was found to be dehydrated. She is admitted to the hospital for further evaluation and management. This patient has a history of nonischemic cardiomyopathy. She was recently admitted to hospital with more or less similar symptoms. She was treated with diuretics and other symptomatic measures. She was discharged home with a LifeVest. Apparently she could not wear the LifeVest because of the discomfort in the chest. She started having the nausea, vomiting and the diarrhea on the second day of the hospital discharge. The frequency of the symptoms were getting worse. She did not have any fever or chills. No cough. She may have some abdominal discomfort. No dysuria. No other specific complaints. According the patient, she started having the nausea vomiting and diarrhea, after started taking the cholesterol medication which was prescribed recently Patient had a cardiac catheterization in June of 2018 . She was found to no significant obstructive arterial disease. Her LV ejection fraction was around 20% by LV gram. During the most recent hospital admission( 12/15/2019), she had an echocardiogram which revealed ejection fraction of 15 to 20%. Patient has been compliant with her medications. She has a baseline shortness of breath with activities. This has been slowly getting worse. Denies any orthopnea. No significant leg swelling. Review of Systems Narrative: CONSTITUTIONAL: No fever or chills. Has a feeling of generalized weakness. EYES: No blurring of vision or other visual disturbances lately. ENT: No hoarseness of voice, auditory disturbances or sore throat. CARDIOVASCULAR: As mentioned above. RESPIRATORY: No significant cough. GASTROINTESTINAL: Nausea, vomiting and diarrhea GENITOURINARY: No dysuria or hematuria. INTEGUMENTARY: No skin rashes or history of skin cancer. NEURO: No transient ischemic attacks or amaurosis. PSYCHIATRIC: No history of psychosis or major depression. HEMATOLOGIC: No bleeding disorders or significant anemia. ENDOCRINE: No history of polyuria or polydipsia. MUSCULOSKELETAL: No recent joint pain or swelling. ALLERGY/IMMUNOLOGY: As mentioned above. Meds/Allergies Home Medications and Allergies Home Medications Medication Instructions Recorded Confirmed Last Taken Type carvedilol 3.125 mg tablet 3.125 mg PO BID 90 Days #180 tab 08/03/19 12/29/19 12/29/19 Rx aspirin 81 mg tablet,delayed 81 mg PO DAILY 10/02/19 12/29/19 12/29/19 History release cholecalciferol (vitamin D3) 25 25 mcg PO DAILY 10/02/19 12/29/19 12/27/19 History mcg (1,000 unit) capsule escitalopram oxalate 5 mg tablet 5 mg PO DAILY 10/02/19 12/29/19 12/29/19 History lactobacillus combination no.4 3 See Rx Instructions .ROUTE .COMPLEX 10/02/19 12/29/19 12/29/19 History billion cell capsule levothyroxine 75 mcg tablet 75 mcg PO DAILY 10/02/19 12/29/19 12/28/19 History ondansetron 4 mg PO Q6H PRN #10 tab 12/06/19 12/29/19 12/28/19 Rx trazodone 50 mg PO BEDTIME PRN 12/15/19 12/29/19 12/28/19 History cetirizine [Zyrtec] 10 mg PO DAILY PRN #0 tab 12/19/19 12/29/19 12/14/19 Rx furosemide 40 mg PO QAM #30 tab 12/19/19 12/29/19 12/29/19 Rx furosemide [Lasix] 20 mg PO .4pm #30 tab 12/19/19 12/29/19 12/28/19 Rx PNV cmb#95-ferrous fumarate-FA 1 tab PO DAILY 12/29/19 12/29/19 12/27/19 History [] Pepto-Bismol See Rx Instructions .ROUTE .COMPLEX 12/29/19 12/29/19 Unknown History alprazolam 0.25 mg PO BID PRN 12/29/19 12/29/19 12/28/19 History atorvastatin See Rx Instructions .ROUTE .COMPLEX 12/29/19 12/29/19 Unknown History potassium chloride See Rx Instructions .ROUTE .COMPLEX 12/29/19 12/29/19 12/28/19 History Allergies Allergy/AdvReac Type Severity Reaction Status Date / Time acetaminophen [From Tylenol] Allergy Unknown Unknown Verified 12/29/19 13:48 Current Medications Current Medications Generic Name Dose Route Start Last Admin Trade Name Freq PRN Reason Stop Dose Admin Alprazolam 0.25 mg 12/29/19 18:00 12/29/19 19:56 Xanax PO 0.25 mg BID PRN Administration Anxiety Aspirin 81 mg 12/30/19 09:00 12/30/19 09:45 Aspirin Ec PO 81 mg DAILY NICOLE Administration Carvedilol 3.125 mg 12/29/19 18:00 12/30/19 09:46 Coreg PO 3.125 mg BID NICOLE Administration Enoxaparin Sodium 40 mg 12/29/19 18:30 12/29/19 18:36 Lovenox SUBCUT 40 mg Q24H NICOLE Administration Escitalopram Oxalate 5 mg 12/30/19 09:00 12/30/19 09:46 Lexapro PO 5 mg DAILY NICOLE Administration Levothyroxine Sodium 75 mcg 12/30/19 09:00 12/30/19 09:45 Synthroid PO 75 mcg DAILY NICOLE Administration Ondansetron HCl 4 mg 12/29/19 17:49 12/30/19 06:30 Zofran PO 4 mg Q6H PRN Administration nausea and vomiting Trazodone HCl 50 mg 12/29/19 21:00 12/29/19 21:30 Desyrel PO 50 mg BEDTIME PRN Administration SLEEP PFSH Acute PFSH: Medical History (Updated 12/30/19 @ 14:01 by Macario Peraza MD) Acute on chronic diastolic (congestive) heart failure Dilated cardiomyopathy Diverticulitis Fibromyalgia GERD (gastroesophageal reflux disease) Hyperlipidemia Hypokalemia Hypotension Hypothyroidism Rheumatoid arthritis Sleep apnea Patient is on CPAP. Surgical History H/O: hysterectomy History of appendectomy History of PTCA No intervention September 2019 Hx of cholecystectomy Family History Mother Diabetes CAD (coronary artery disease) Father No problems noted. Other Stroke Social History Smoking and tobacco status: never smoked Alcohol intake: never Vitals/I&O/Wt Last Vital Signs Temp 98.1 F 12/30/19 10:53 Pulse 72 12/30/19 10:53 Resp 19 H 12/30/19 10:53 BP 101/63 12/30/19 10:53 Pulse Ox 97 12/30/19 10:53 12/29/19 12/30/19 12/30/19 22:59 06:59 14:59 Intake Total 120 / 120 180 / 300 240 / 240 Output Total 800 / 800 100 / 100 Balance 120 / 120 -620 / -500 140 / 140 Weight last 48 hrs Weight 140 lb Physical Exam Narrative: EXAM NARRATIVE: GENERAL: The patient is alert and oriented times three. Not in any acute distress. HEENT: Moderate pallor, no icterus or lymphadenopathy. The pupils are reactant to light. Oral cavity: There are no mucous membrane lesions. Funduscopic examination: The fundus is not visualized NECK: Trachea appears to be central. No masses noted. JVD of 3 cm above the angle of Kamar. No thyromegaly appreciated. No carotid bruit. RESPIRATORY: Chest is symmetrical. No intercostals muscle retraction or any accessory muscle activation. There is no chest wall tenderness. Breath sounds are heard bilaterally. No rales or rhonchi heard. No evidence of any consolidation. The presence is slightly diminished in the bases. BREASTS: Deferred. HEART: The PMI is in the 5th left intercostals space just inside the midclavicular line. No palpable precordial events. S1 and S2 are normal. Soft S3. No S4. Short systolic murmur in the left sternal border. No diastolic murmurs. No pericardial rub. ABDOMEN: No vessel pulsations or distention. The liver is enlarged and slightly tender. No organomegaly appreciated. No abdominal bruit. Bowel sounds are normally heard. : Deferred. RECTAL: Deferred. LYMPHATIC: No lymphadenopathy noted in the neck or groin. EXTREMITIES: No edema or cyanosis. No clubbing. The pulses are symmetrical bilaterally. The radial, femoral, dorsalis pedis and the posterior tibial pulses are palpated with a slightly diminished volume and amplitude MUSCULOSKELETAL: No acute joint deformities or swelling SKIN: There are no significant scars or skin rash noted. NEUROPSYCHIATRIC: The patient is alert and oriented x3. Appears to be in a good mood. The higher functions are grossly within normal limits. No tremors or rigidity noted. Data Labs: Other Labs: Laboratory Last Values WBC 6.2 10^3/uL (4.0- 10.0) 12/30/19 03:40 RBC 4.18 10^6/uL (4.1 -5.3) 12/30/19 03:40 Hgb 12.0 g/dL (11.5-1 5.3) 12/30/19 03:40 Hct 38.6 % (37.0-47.0 ) 12/30/19 03:40 MCV 92.3 fL (81-99) 12/30/19 03:40 MCH 28.7 pg (28.0-34. 0) 12/30/19 03:40 MCHC 31.1 g/dL (30.0-3 6.0) 12/30/19 03:40 RDW 18.3 % (12.1-15.1 ) H 12/30/19 03:40 Plt Count 181 10^3/cmm (130 -400) 12/30/19 03:40 MPV 10.7 fL (7.4-10.4 ) H 12/30/19 03:40 Neut % (Auto) 77.9 % 12/30/19 03:40 Lymph % (Auto) 10.5 % 12/30/19 03:40 [place] % (Auto) 6.5 % 12/30/19 03:40 Eos % (Auto) 4.2 % 12/30/19 03:40 Baso % (Auto) 0.6 % 12/30/19 03:40 Neut # (Auto) 4.80 10^3/uL (1.8 -7.7) 12/30/19 03:40 Lymph # (Auto) 0.7 10^3/uL (0.8- 4.8) L 12/30/19 03:40 [place] # (Auto) 0.4 10^3/uL (0.2- 0.9) 12/30/19 03:40 Eos # (Auto) 0.3 10^3/uL (0.0- 0.8) 12/30/19 03:40 Baso # (Auto) 0.0 10^3/uL (0.0- 0.1) 12/30/19 03:40 Nucleated RBC % (a uto) 0 % 12/30/19 03:40 Nucleated RBCs # 0.0 /100WBC 12/30/19 03:40 Sodium 140 mmol/L (136-1 45) 12/30/19 03:40 Potassium 2.9 mmol/L (3.5-5 .1) L D 12/30/19 03:40 Chloride 104 mmol/L (98-10 7) 12/30/19 03:40 Carbon Dioxide 25 mmol/L (22-29) 12/30/19 03:40 Anion Gap 13.9 (5-19) 12/30/19 03:40 BUN 16 mg/dL (8-23) 12/30/19 03:40 Creatinine 1.0 mg/dL (0.5-0. 9) H 12/30/19 03:40 GFR Calculation Not Reportable 12/30/19 03:40 Glucose 91 mg/dL (65-115) 12/30/19 03:40 Calculated Osmolal ity 286 mOsm/kg (285- 295) 12/30/19 03:40 Calcium 8.2 mg/dL (8.5-10 .5) L 12/30/19 03:40 Total Bilirubin 1.5 mg/dL (0.15-1 .2) H 12/30/19 03:40 AST 44 U/L (0-32) H 12/30/19 03:40 ALT 99 U/L (0-33) H 12/30/19 03:40 Alkaline Phosphata se 71 IU/L (35-105) 12/30/19 03:40 Troponin T Baselin e 15 ng/L (0-10) H 12/29/19 12:42 Troponin T 120 Min [place] & [place] 15.27 ng/L (0-10) H 12/29/19 14:32 Delta Troponin T 0.27 ABS# (0-10) 12/29/19 14:32 Troponin T Hi Sens 6Hr 14.45 ng/L (0-10) H 12/29/19 19:00 Troponin T Hi Sens 6Hr Delta -0.55 ng/L (0-12) L 12/29/19 19:00 NT-Pro-B Natriuret Pep 7414 pg/mL (0-450 ) H 12/29/19 12:42 Total Protein 5.3 g/dL (6.6-8.7 ) L 12/30/19 03:40 Albumin 3.5 g/dL (3.5-5.2 ) 12/30/19 03:40 Globulin 1.8 g/dL (1.3-4.6 ) 12/30/19 03:40 Lipase 42 U/L (13-60) 12/29/19 12:42 Urine Color Yellow (Yellow) 12/29/19 14:00 Urine Appearance Clear (CLEAR) 12/29/19 14:00 Urine pH 5 (5-7) 12/29/19 14:00 Ur Specific Gravit y 1.020 (1.005-1.0 30) 12/29/19 14:00 Urine Protein Neg (Negative) 12/29/19 14:00 Urine Glucose (UA) Norm (Normal) 12/29/19 14:00 Urine Ketones Negative (Negati ve) 12/29/19 14:00 Urine Blood Neg (Negative) 12/29/19 14:00 Urine Nitrate Negative (Negati ve) 12/29/19 14:00 Urine Bilirubin Neg (NEGATIVE) 12/29/19 14:00 Urine Urobilinogen Norm mg/dL (Negat jean claude) 12/29/19 14:00 Ur Leukocyte Yokasta ase Negative (Negati ve) 12/29/19 14:00 Urine RBC None /hpf (0-2) 12/29/19 14:00 Urine WBC 0-4 /hpf (0-5) H 12/29/19 14:00 Ur Squamous Epith Cells 0-4 (0-5) H 12/29/19 14:00 Amorphous Sediment Not Reportable 12/29/19 14:00 Urine Bacteria 2+ (NONE) H 12/29/19 14:00 Hyaline Casts 15-25 H 12/29/19 14:00 SARS-CoV-2 Ag (Rap id) Negative (Negati ve) 12/29/19 14:45 cardiac catheterization on 06/13/2018 revealed No significant disease noted in the Left Main, LAD, Circumflex, or RCA coronary arteries. All bustillo are hypokinetic. Severe left ventricular systolic dysfunction. Ejection fraction of 20%. Imaging^: Echo: My impression: Severely reduced LV function with EF of 15 to 20%. Severe global hypokinesis is noted. RV function is mildly reduced. Diastolic function is abnormal. Moderate pulmonary hypertension is noted. CXR: My impression: Cardiomegaly. Increased pulmonary vascular markings and interstitial edema. Mild pleural effusion bilaterally EKG^: EKG 1: My Interpretation: EKG revealed normal sinus rhythm with left bundle branch block pattern. Possible left atrial enlargement. A&P Assessment and plan (1) Acute on chronic diastolic (congestive) heart failure: Patient apparently has severe LV systolic dysfunction. We will continue careful IV diuresis. I may start her on the Entresto in the hospital and see the blood pressure response. It appears to me that the patient has end-stage heart disease. She may benefit from a BILINGUAL OFFICE ASSISTANT-D. Status: Acute (2) Dilated cardiomyopathy: In view of the patient's severe LV systolic dysfunction and the left bundle branch block, she may benefit from the BILINGUAL OFFICE ASSISTANT-D as mentioned above. In the meanwhile, we might optimize the medical treatment. Status: Acute (3) Hepatomegaly: Most likely from the hepatic venous congestion, secondary to biventricular failure. We will optimize the diuretic treatment. Status: Acute (4) Hypokalemia: Patient is getting this potassium supplement. Status: Acute Additional A&P Information The other problems are History of hypothyroidism, clinically euthyroid. May continue on the current medications. History of obstructive sleep apnea. Elevated liver enzymes Patient may be given Lasix 40 mg every 12 hours IV Potassium 20 mEq p.o. twice daily Spironolactone 25 mg p.o. daily Coding Level of Care Code Acute Hospital Insurance Representative for Chg Fwd Diagnoses Acute on chronic diastolic (congestive) heart failure I50.33 Dilated cardiomyopathy I42.0 Hepatomegaly R16.0 Hypokalemia E87.6
--- NOTE | 2019-12-30 12:57 | PM.PN ---
Subjective Subjective: Interval history: Feels better today. No further episodes of diarrhea. Looks better hydrated. Clinically euvolemic this morning. 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 CUTTER: no focal neuro deficits Extremity no lower extremity edema Data : 12/30/19 03:40 12/30/19 03:40 A&P Assessment and plan (1) CHF NYHA class IV: Status: Acute Qualifiers: Congestive heart failure type: systolic Congestive heart failure chronicity: acute on chronic Qualified Code(s): I50.23 - Acute on chronic systolic (congestive) heart failure (2) Dilated cardiomyopathy: Status: Acute (3) Diarrhea: Status: Acute Qualifiers: Diarrhea type: infectious Qualified Code(s): A09 - Infectious gastroenteritis and colitis, unspecified (4) High transaminase levels: Status: Acute (5) Sleep apnea: Status: Acute Qualifiers: Sleep apnea type: obstructive Qualified Code(s): G47.33 - Obstructive sleep apnea (adult) (pediatric) (6) Hypothyroidism: Status: Acute Qualifiers: Hypothyroidism type: unspecified Qualified Code(s): E03.9 - Hypothyroidism, unspecified Additional A&P Information # dilated non ischemic cardiomyopathy with decompensation s/p iv lasix in the ER, hold off on further doses as clinically appears to be euvolemic at this time saturating well on 2lpm NC which is her home requirement. Cardiology consult for optimization of CHF- on previous visit there was consideration for starting Entresto, life vest was arranged but patient refused to wear it as it was uncomfortable. Awaiting recommendations # Diarrhea: shiga toxin producing e.coli on stool cx, diarrhea 1-2 episodes per day, avoid using abx as can precipitate HUS. Will monitor for diarrheal movements, has not had any diarrhea today. Will use prn imodium if needed #Hypokalemia, repleted with IV supplementation. # Congestive hepatopathy with mild transaminitis . Hepatitis serology negative Attestations Medical Necessity Statement*: Awaiting cardiology recommendations. Coding Level of Care Code Acute Organizational Research Consultant for Chg Fwd Diagnoses CHF NYHA class IV I50.23 Congestive heart failure type: systolic Congestive heart failure chronicity: acute on chronic Dilated cardiomyopathy I42.0 Diarrhea A09 Diarrhea type: infectious High transaminase levels R74.0 Sleep apnea G47.33 Sleep apnea type: obstructive Hypothyroidism E03.9 Hypothyroidism type: unspecified
[2019-12-30 14:44] VITALS: BP 103/67; PULSE 74; RESP 25; TEMP 36.7; O2SAT 98
[2019-12-30] MEDS: enoxaparin 40 mg/0.4 mL Syringe SUBCUT (17:34)
[2019-12-30] MEDS: ALPRAZolam 0.25 mg Tablet PO (17:37)
[2019-12-30] MEDS: sacubitril/valsartan 24-26 mg Tablet 1 EACH PO (18:54)
--- NOTE | 2019-12-30 19:07 | PC.NURSE ---
Shift Summary Shift uneventful. Patient was up SBA assist to bedside commode and chair throughout the day. Patient requested something for anxiety one time during the shift and xanax was administered. No further needs identified at this time. Nursing to continue to monitor.
[2019-12-30] MEDS: FUROsemide 10 mg/mL SDV 4mL 40 MG IVP (19:22)
[2019-12-30 20:00] VITALS: BP 93/56; PULSE 62; RESP 21; O2SAT 98
[2019-12-30] MEDS: trazodone 50 mg Tablet PO (20:14)
[2019-12-30 20:18] VITALS: PULSE 88; O2SAT 98
--- NOTE | 2019-12-30 23:25 | PC.NURSE ---
PT WAS UP IN CHAIR AT BEGINNING OF SHIFT. PT WANTED PRN TRAZODONE AT HS. PRN TRAZODONE WAS GIVEN. PT DENIES PAIN AT THIS TIME. WILL CONTINUE TO MONITOR.
[2019-12-31] VITALS (11 sets, daily range): BP systolic 80–103; BP diastolic 50–62; PULSE 54–75; RESP 15–23; TEMP 18.8–36.9; O2SAT 96–98
--- NOTE | 2019-12-31 07:13 | PC.NURSE ---
PT STATES THAT THEY SLEPT WONDERFULLY. PT DENIES PAIN AT THIS TIME. REPORT GIVEN TO ON COMING NURSE.
--- NOTE | 2019-12-31 07:30 | PC.NURSE ---
Patient resting in bed, even non labored breathing. Patient states she rested really well last night and feels better today than she did yesterday. Physical assessment performed, no further needs identified at this time.
[2019-12-31] MEDS: FUROsemide 10 mg/mL SDV 4mL 40 MG IVP (08:38)
[2019-12-31] MEDS: carvedilol 3.125 mg Tablet PO ×2 (08:41→17:39)
[2019-12-31] MEDS: levothyroxine 150 mcg Tablet 75 MCG PO (08:41)
[2019-12-31] MEDS: aspirin 81 mg EC Tablet PO (08:41)
[2019-12-31] MEDS: sacubitril/valsartan 24-26 mg Tablet 1 EACH PO (08:42)
[2019-12-31] MEDS: potassium chloride ER 10 mEq Tablet 20 MEQ PO ×2 (08:42→17:39)
[2019-12-31] MEDS: escitalopram 10 mg Tablet 5 MG PO (08:42)
[2019-12-31] MEDS: spironolactone 25 mg Tablet PO (08:43)
[2019-12-31 10:14] LABS: Alanine Aminotransferase 81 U/L (0-33); Albumin Level 3.6 g/dL (3.5-5.2); Alkaline Phosphatase 77 IU/L (35-105); Anion Gap 13.2 (5-19); Aspartate Amino Transferase 30 U/L (0-32); Blood Urea Nitrogen 12 mg/dL (8-23); Calcium 8.4 mg/dL (8.5-10.5); Carbon Dioxide 27 mmol/L (22-29); Chloride 102 mmol/L (98-107); Globulin 2.1 g/dL (1.3-4.6); Glucose 125 mg/dL (65-115); Osmolality Calculated 286 mOsm/kg (285-295); Potassium 3.2 mmol/L (3.5-5.1); Sodium 139 mmol/L (136-145); Total Bilirubin 1.4 mg/dL (0.15-1.2); Total Protein 5.7 g/dL (6.6-8.7)
--- NOTE | 2019-12-31 11:35 | P.DS_ITS ---
Discharge Providers Date of Admission: 12/29/19 15:36 Date of Discharge: December 31, 2019 Attending Provider at Admission: Christy Dejesus MD Attending Provider at Discharge: Christy Dejesus MD Primary Care Provider: Camden Fletcher MD Diagnoses at Discharge Discharge Diagnosis (1) Acute on chronic diastolic (congestive) heart failure: Status: Acute (2) Dilated cardiomyopathy: Status: Acute (3) Hepatomegaly: Status: Acute (4) Hypokalemia: Status: Acute Reason for Visit Reason for Visit: dehydrated Hospital Course Discharge Summary: 79 year old female with a past medical history of severe systolic congestive heart failure, hypertension and chronic kidney disease recently admitted with ETEC gastroenteritis and acue decompensated CHF between 12/14-12/18. Her Ef on last admission had reduced from ~30% to 15%. Patient was admitted to the hospital and started on IV diuresis because of concern for NYHA class IV CHF. Her diuresis was very slow and gradual because of poor oral intake and borderline blood pressures. Plan was to start Entresto however this was limited by borderline blood pressures. She was to receive a life vest at home, she states this was delivered however but her feel very tight and restricted, therefore she did not wear it. returned to ER on 12/28 with c/o feeling dehydrated and overall unwell with generalized weakness. [facility] HH nurse found her to be dehydrated and sent her to the ER. Her CXR showed incrased vascular congestion and she was appropriately diuresed, carefully maintaining fluid balance. She had 1-2 episodes of diarrhea in the hospital. Cardiology service was consulted and she has been started on entresto and spirinolactone, which she is currently tolerating. She can take imodium in case of bothersome diarrhea exceeding 4-5 BM per day to avoid further dehydration. 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 SPECIALIST: no focal neuro deficits EXT: no pitting edema Discharge Data Data Completed and Pending: Completed Studies During Hospitalization Category Date Time Status CT abdomen pelvis w con* [id number] Stat Cat Scan 12/29/19 13:50 Completed XR chest 1V betzaida ble [id number] Stat Exams 12/29/19 12:39 Completed Pending at discharge Category Date Time Status Clostridioides Di fficile PCR Routin e Lab 12/29/19 17:19 Uncollected Labs from last 24 hours 12/31/19 09:38 Sodium 139 Potassium 3.2 L Chloride 102 Carbon Dioxide 27 Anion Gap 13.2 BUN 12 Creatinine 1.0 H GFR Calculation Not Reportable Glucose 125 H Calculated Osmolal ity 286 Calcium 8.4 L Total Bilirubin 1.4 H AST 30 ALT 81 H Alkaline Phosphata se 77 Total Protein 5.7 L Albumin 3.6 Globulin 2.1 Vitals: Last Vital Signs Temp 98.2 F 12/31/19 10:59 Pulse 58 L 12/31/19 10:59 Resp 16 12/31/19 10:59 BP 96/62 12/31/19 10:59 Pulse Ox 96 12/31/19 10:59 Discharge Plan Discharge Patient Disposition: Home Health Service Condition: Stable Prescriptions: New Entresto 24-26 mg Tablet 1 ea PO DAILY 30 Days RF: 0 Continued levothyroxine 75 mcg tablet 75 mcg PO DAILY RF: 0 aspirin [Adult Low Dose Aspirin] 81 mg tablet,delayed release (DR/EC) 81 mg PO DAILY RF: 0 escitalopram oxalate 5 mg tablet 5 mg PO DAILY RF: 0 cholecalciferol (vitamin D3) 25 mcg (1,000 unit) capsule 25 mcg PO DAILY RF: 0 Probiotic 3 billion cell capsule See Rx Instructions .ROUTE .COMPLEX RF: 0 carvedilol 3.125 mg tablet 3.125 mg PO BID 90 Days Qty: 180 RF: 3 ondansetron 4 mg tablet,disintegrating 4 mg PO Q6H PRN (Reason: nausea and vomiting) Qty: 10 RF: 1 trazodone 50 mg Tablet 50 mg PO BEDTIME PRN (Reason: unknown) RF: 0 furosemide [Lasix] 20 mg tablet 20 mg PO .4pm Qty: 30 RF: 0 furosemide 40 mg tablet 40 mg PO QAM Qty: 30 RF: 0 cetirizine [Zyrtec] 10 mg tablet 10 mg PO DAILY PRN (Reason: allergy) Qty: 0 RF: 0 alprazolam 0.25 mg tablet 0.25 mg PO BID PRN (Reason: Anxiety) RF: 0 28 mg iron- 800 mcg Tablet 1 tab PO DAILY RF: 0 Pepto-Bismol See Rx Instructions .ROUTE .COMPLEX RF: 0 atorvastatin 10 mg tablet See Rx Instructions .ROUTE .COMPLEX RF: 0 potassium chloride 10 mEq tablet extended release See Rx Instructions .ROUTE .COMPLEX RF: 0 Discharge Orders: Discharge Order (Routine); Ordered 01/01/20 Ordered By: Christy Dejesus Referrals: [facility] [Outside] Camden Fletcher MD [Primary Care Provider] - Jess Rodríguez FNP [Nurse Practitioner] - 1 week Discharge Diet: Usual diet and GI Soft Discharge Activity: Resume usual activity and Oxygen as instructed Activity Restrictions/Additional Instructions: can take imodium prn if diarrhea frequency >4-5 episodes per day Discharge Attestations Time Spent in Discharge Care*: greater than 30 min Specific Discharge Activities: Specific discharge activities: educating patient and discussing with pcp/other providers Status at Discharge: Cognitive status at discharge: cognitively intact , Behavioral status at discharge: cooperative , Quality Metrics Clinical Quality Measures During this hospital stay, did patient experience: None Coding Level of Care Code Acute Social Service Director for Zeferino Guillory Diagnoses Acute on chronic diastolic (congestive) heart failure I50.33 Dilated cardiomyopathy I42.0 Hepatomegaly R16.0 Hypokalemia E87.6
--- NOTE | 2019-12-31 13:38 | PC.CHAP ---
Pastoral Care Encounter/Spiritual Assessment Type of Contact [] Declined physicians assistant visit [] Patient/Family/Request visit [] Outpatient visit [] Follow-up visit [] Physician referral [] Code/Alert [x] Routine visit [] Staff referral [] Actively dying [] Patient sleeping [] Family support [] [] Out of room [] Palliative care [] [] Receiving care in room [] Pre-surgical visit [] Trauma [] Long length of stay [] ICU visit [] Other: Relational/Emotional Strength [x] Patient feels connected with others/family/visitors/staff [] Distress [] Loneliness/isolation [] Abandonment Spirituality of Patient [x] Person of Libertad [] Attends Zoroastrian of their Libertad [x] Believes in Prayer [x] Reads Bible or Yazdanism materials [] There are Spiritual issues to be addressed Director Payer Interventions [x] Prayer [x] Active listening [x] Non-anxious presence [x] Spiritual/emotional support [] Crisis/trauma care [] Spiritual counseling [] Bereavement support [] Provided bereavement packet [] Provided Bible/devotional materials [] Provided toy/stuffed animal, coloring book to patient or family member [] Provided Communion [] Anointing/Institute [] Salvation [x] Completed spiritual assessment [] Other: Impact on Illness or Injury [] Angry [] Fearful [] Anxious [] Often cries [] Exhaustion [] Unable to work [] Unable to attend pentecostal [] Unable to walk/stand [] Unable to read [] Unable to drive [] Unable to eat/drink [] Unable to sleep [] Unable to be with family [] Patient intubated [x] Other: Summary Patient is a professed believer in Jan Jesos. Time spent with patient 10-minutes
--- NOTE | 2019-12-31 15:15 | PC.NURSE ---
Dr. Dejesus notified of patient BP of 86/52 MAP of 63, patient lethargic, HR 64. Physician gave telephone order to hold evening dose of entresto and lisinopril and recheck BP in 45 minutes.
[2019-12-31] MEDS: enoxaparin 40 mg/0.4 mL Syringe SUBCUT (17:40)
--- NOTE | 2019-12-31 18:45 | PC.NURSE ---
Order received from Dr. Dejesus to administer coreg is SBP >100. Physician was notified that patient received 1800 dose of coreg. BP now 80/50, patient sitting in chair asymptomatic. No new orders received, nurse to continue to monitor.
[2019-12-31] MEDS: glycerin adult supp 1 EACH PR (21:36)
--- NOTE | 2019-12-31 21:38 | PC.NURSE ---
Patient requesting something to help her bowels move. Informed Dr Marie and he placed an order which was administered.
[2019-12-31] MEDS: trazodone 50 mg Tablet PO (23:53)
[2019-12-31] MEDS: ALPRAZolam 0.25 mg Tablet PO (23:53)
[2020-01-01 04:00] VITALS: BP 97/57; PULSE 59; RESP 13; O2SAT 96
[2020-01-01] MEDS: FUROsemide 10 mg/mL SDV 4mL 40 MG IVP (06:18)
--- NOTE | 2020-01-01 07:45 | PC.NURSE ---
Patient resting in bed at time of physical assessment. Patient does not have any requests at this time but states she is ready to go home to day. States she is feeling much better. Patient requests that xanax and trazadone be continued at tx. No needs identified at this time. Nurse to continue to monitor.
[2020-01-01 08:21] VITALS: BP 108/59; PULSE 67; RESP 17; TEMP 36.4; O2SAT 98
--- NOTE | 2020-01-01 08:45 | PC.NURSE ---
Dr. Vergara gave verbal order to hold Spironalactone administration this am. Continue with morning dose of Entresto and Coreg. Recheck BP at noon. If stable, physician will look to dc patient today. RBVO.
[2020-01-01 09:23] LABS: Alanine Aminotransferase 68 U/L (0-33); Albumin Level 3.8 g/dL (3.5-5.2); Alkaline Phosphatase 71 IU/L (35-105); Anion Gap 12.3 (5-19); Aspartate Amino Transferase 21 U/L (0-32); Blood Urea Nitrogen 9 mg/dL (8-23); Calcium 8.1 mg/dL (8.5-10.5); Carbon Dioxide 28 mmol/L (22-29); Chloride 103 mmol/L (98-107); Creatinine Clr Calc Pharmacy 46.9729; Globulin 2.2 g/dL (1.3-4.6); Glucose 132 mg/dL (65-115); Osmolality Calculated 288 mOsm/kg (285-295); Potassium 3.3 mmol/L (3.5-5.1); Sodium 140 mmol/L (136-145); Total Bilirubin 1.3 mg/dL (0.15-1.2)
[2020-01-01] MEDS: sacubitril/valsartan 24-26 mg Tablet 1 EACH PO (09:24)
[2020-01-01] MEDS: levothyroxine 150 mcg Tablet 75 MCG PO (09:25)
[2020-01-01] MEDS: escitalopram 10 mg Tablet 5 MG PO (09:25)
[2020-01-01] MEDS: carvedilol 3.125 mg Tablet PO (09:25)
[2020-01-01] MEDS: aspirin 81 mg EC Tablet PO (09:26)
[2020-01-01] MEDS: potassium chloride ER 10 mEq Tablet 20 MEQ PO (09:26)
[2020-01-01 12:00] VITALS: BP 96/58; PULSE 70
[2020-01-01 13:50] VITALS: PULSE 70; O2SAT 97
[2020-01-01 15:28] VITALS: BP 82/56; PULSE 74; RESP 18; TEMP 36.7; O2SAT 99
--- NOTE | 2020-01-01 17:16 | P.DS_ITS ---
Discharge Providers Date of Admission: 12/30/19 20:38 Date of Discharge: January 01, 2020 Attending Provider at Admission: Christy Dejesus MD Attending Provider at Discharge: Christy Dejesus MD Primary Care Provider: Camden Fletcher MD Diagnoses at Discharge Discharge Diagnosis (1) Acute on chronic diastolic (congestive) heart failure: Status: Acute (2) Dilated cardiomyopathy: Status: Acute (3) Hepatomegaly: Status: Acute (4) Hypokalemia: Status: Acute Reason for Visit Reason for Visit: dehydrated Hospital Course Discharge Summary: please refer to my discharge summary from yesetrday. Following changes have been made in the interim: Patient's BP did not tolerate Entresto BID and spirinolactone addition, th erefore spirinolactone has been discontinued. Entresto reduced to once daily. 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 No new complaints. ! episode of small volume diarrhea. Physical Exam Narrative: EXAM NARRATIVE: GEN: Awake, alert and oriented, no acute distress CVS: S1S2 N RS: CTA B/L Abd: Soft, nt/nd , bs+ RESEARCH ENGINEER MARINE EQUIPMENT: no focal neuro deficits Discharge Data Data Completed and Pending: Completed Studies During Hospitalization Category Date Time Status CT abdomen pelvis w con* [id number] Stat Cat Scan 12/29/19 13:50 Completed XR chest 1V betzaida ble [id number] Stat Exams 12/29/19 12:39 Completed Pending at discharge Category Date Time Status Clostridioides Di fficile PCR Routin e Lab 12/29/19 17:19 Uncollected Labs from last 24 hours 01/01/20 08:49 Sodium 140 Potassium 3.3 L Chloride 103 Carbon Dioxide 28 Anion Gap 12.3 BUN 9 Creatinine 0.9 GFR Calculation Not Reportable Glucose 132 H Calculated Osmolal ity 288 Calcium 8.1 L Total Bilirubin 1.3 H AST 21 ALT 68 H Alkaline Phosphata se 71 Total Protein 6.0 L Albumin 3.8 Globulin 2.2 Vitals: Last Vital Signs Temp 98.1 F 01/01/20 15:28 Pulse 74 01/01/20 15:28 Resp 18 01/01/20 15:28 BP 82/56 01/01/20 15:28 Pulse Ox 99 01/01/20 15:28 Discharge Plan Discharge Patient Disposition: Home Health Service Condition: Stable Prescriptions: New Entresto 24-26 mg Tablet 1 ea PO DAILY 30 Days Qty: 30 RF: 0 Continued levothyroxine 75 mcg tablet 75 mcg PO DAILY RF: 0 aspirin [Adult Low Dose Aspirin] 81 mg tablet,delayed release (DR/EC) 81 mg PO DAILY RF: 0 escitalopram oxalate 5 mg tablet 5 mg PO DAILY RF: 0 cholecalciferol (vitamin D3) 25 mcg (1,000 unit) capsule 25 mcg PO DAILY RF: 0 Probiotic 3 billion cell capsule See Rx Instructions .ROUTE .COMPLEX RF: 0 carvedilol 3.125 mg tablet 3.125 mg PO BID 90 Days Qty: 180 RF: 3 ondansetron 4 mg tablet,disintegrating 4 mg PO Q6H PRN (Reason: nausea and vomiting) Qty: 10 RF: 1 trazodone 50 mg Tablet 50 mg PO BEDTIME PRN (Reason: unknown) RF: 0 furosemide [Lasix] 20 mg tablet 20 mg PO .4pm Qty: 30 RF: 0 furosemide 40 mg tablet 40 mg PO QAM Qty: 30 RF: 0 cetirizine [Zyrtec] 10 mg tablet 10 mg PO DAILY PRN (Reason: allergy) Qty: 0 RF: 0 alprazolam 0.25 mg tablet 0.25 mg PO BID PRN (Reason: Anxiety) RF: 0 28 mg iron- 800 mcg Tablet 1 tab PO DAILY RF: 0 Pepto-Bismol See Rx Instructions .ROUTE .COMPLEX RF: 0 atorvastatin 10 mg tablet See Rx Instructions .ROUTE .COMPLEX RF: 0 potassium chloride 10 mEq tablet extended release See Rx Instructions .ROUTE .COMPLEX RF: 0 Discharge Orders: Discharge Order (Routine); Ordered 01/01/20 Ordered By: Christy Dejesus Referrals: [facility] [Outside] Jess Rodríguez FNP [Nurse Practitioner] - 1 week Camden Fletcher MD [Primary Care Provider] - Discharge Diet: Usual diet and GI Soft Discharge Activity: Resume usual activity and Oxygen as instructed Activity Restrictions/Additional Instructions: can take imodium prn if diarrhea frequency >4-5 episodes per day Discharge Attestations Time Spent in Discharge Care*: less than 30 min Status at Discharge: Cognitive status at discharge: cognitively intact , Behavioral status at discharge: cooperative , Quality Metrics Clinical Quality Measures During this hospital stay, did patient experience: None Coding Level of Care Code Acute Manufacturing Cost Estimator for Chg Fwd Diagnoses Acute on chronic diastolic (congestive) heart failure I50.33 Dilated cardiomyopathy I42.0 Hepatomegaly R16.0 Hypokalemia E87.6
--- NOTE | 2020-01-01 18:11 | PC.NURSE ---
Discharge instructions given per the physician's instructions. Patient verbalized understanding and did not have any further questions. IV has been removed, intact and asymptomatic. Patient to be taken home by son in a private vehicle. No further needs identified.
[2020-01-01 18:14] VITALS: BP 82/56; PULSE 74; RESP 18; TEMP 36.7; O2SAT 99
== END 2020-01-01 18:17 | disposition home health service (06) | DRG 291 ==
LOC: ER 14:06 → CSU 17:50
PROVIDERS: Admitting Provider Student in an Organized Health Care Education/Training Program; Emergency Provider Emergency Medicine; PCP Family Medicine; Visit Provider Student in an Organized Health Care Education/Training Program
DX: I13.0 Hypertensive heart and chronic kidney disease with heart failure and stage 1 through stage 4 chronic kidney disease, or unspecified chronic kidney disease (principal); I50.23 Acute on chronic systolic (congestive) heart failure; A09 Infectious gastroenteritis and colitis, unspecified; N18.9 Chronic kidney disease, unspecified; E86.0 Dehydration; I42.0 Dilated cardiomyopathy; M79.7 Fibromyalgia; K21.9 Gastro-esophageal reflux disease without esophagitis; E78.5 Hyperlipidemia, unspecified; E03.9 Hypothyroidism, unspecified; M06.9 Rheumatoid arthritis, unspecified; I42.8 Other cardiomyopathies; G47.33 Obstructive sleep apnea (adult) (pediatric); I27.20 Pulmonary hypertension, unspecified; R16.0 Hepatomegaly, not elsewhere classified; E87.6 Hypokalemia; Z79.82 Long term (current) use of aspirin
CPT/HCPCS: 12345; 36415; 71045; 74177; 80053; 81001; 83690; 83880; 84484; 85025; 87426; 93005; 96372; 96375; 99284; G0378; J1650; J1940; J2405; J3480; J7030; Q0162; Q9967

== ENCOUNTER 2020-02-08 11:36 | Inpatient (IN) | payer MEDICARE, OTHER, SELFPAY ==
[2020-02-08] VITALS (8 sets, daily range): BP systolic 77–105; BP diastolic 33–80; PULSE 70–80; RESP 15–20; TEMP 36.4–37.1; O2SAT 74–100; BMI 23.0
--- NOTE | 2020-02-08 11:46 | XRR_ITS ---
PROCEDURE INFORMATION: Exam: XR Abdomen, 1 View Exam date and time: 02/08/2020 11:48 AM Age: 79 years old Clinical indication: Other: Distention TECHNIQUE: Imaging protocol: XR of the abdomen. Views: Frontal supine view of the abdomen. 1 View. COMPARISON: No relevant prior studies available. FINDINGS: Gastrointestinal tract: Prominent gastric air. Multiple nondilated air-filled loops of small bowel in the left lower quadrant. Prominent stool. Intraperitoneal space: Nonspecific subcentimeter right pelvic calcifications. If urolithiasis is of clinical concern, CT may be of benefit for further evaluation. Bones/joints: Degenerative change. XR/XR KUB portable [id number] IMPRESSION: 1. Multiple nondilated air-filled loops of small bowel in the left lower quadrant. 2. Additional findings as described above.
--- NOTE | 2020-02-08 11:46 | XRR_ITS ---
PROCEDURE INFORMATION: Exam: XR Chest, 1 View Exam date and time: 02/08/2020 12:11 PM Age: 79 years old Clinical indication: Cough and dyspnea; Additional info: Dyspnea/cough TECHNIQUE: Imaging protocol: XR of the chest Views: 1 view. COMPARISON: CR XR chest 1V portable [id number] 12/29/2019 1:06 PM FINDINGS: Lungs: Interstitial prominence and improved left basilar airspace disease. Poorly defined biconvex density overlying the right infrahilar region, which can be better evaluated with CT, as clinically indicated. Additional findings as described above. Pleural space: Interval resolution of previously visualized pleural effusions. Heart/Mediastinum: Borderline cardiomegaly. Vasculature: Ectasia of the thoracic aorta. Bones/joints: osteopenia and degenerative change. XR/XR chest 1V portable [id number] IMPRESSION: 1. Poorly defined biconvex density overlying the right infrahilar region, which can be better evaluated with CT, as clinically indicated. 2. Additional findings as described above.
--- NOTE | 2020-02-08 12:17 | W.ED.WEAKNES ---
HPI - Weakness General: Chief complaint: Weakness Stated complaint: DEHYDRATION, ABDOMEN DISTENTION Time Seen by Provider: 02/08/20 11:44 History of Present Illness: HPI Narrative: 79-year-old female presents with a complaint of generalized weakness nausea vomiting and diarrhea for the last 4 days. She has had increased difficulty breathing as well she had one episode a couple days ago bright red blood that was a single episode is not been repeated her appetite is been poor she denies any chest pain. She is not had any fever that she is measured. She has a history of severe congestive heart failure with an EF of 15 to 20%. MD Complaint: generalized weakness and lack of energy Onset (ago): day(s) (4) Duration: constant Location: generalized Migration: none Severity: severe Relieving factors: none Exacerbating factors: exertion Associated symptoms: Reports myalgias, nausea, short of breath and vomiting; Denies chest pain, chills, confusion, melena, decreased appetite, diaphoresis, dysuria, easy bruising, fever(s), headache(s), rash or syncope Review of Systems Const: Denies: fever(s), chills or diaphoresis ENMT: Denies: throat pain, ear or mastoid pain, nasal discharge or nasal congestion Card: Denies: chest pain or syncope Resp: Denies: dyspnea, productive cough or non-productive cough GI: Reports: nausea and vomiting; Denies: melena : Denies: dysuria Skin/Breast: Denies: rash or pruritus Neuro: Denies: headache(s) or confusion Phu/Lymph: Denies: easy bruising PFSH ED PFSH: Medical History Acute on chronic diastolic (congestive) heart failure Dilated cardiomyopathy Diverticulitis Fibromyalgia GERD (gastroesophageal reflux disease) Hyperlipidemia Hypokalemia Hypotension Hypothyroidism Rheumatoid arthritis Sleep apnea Patient is on CPAP. Surgical History H/O: hysterectomy History of appendectomy History of PTCA No intervention September 2019 Hx of cholecystectomy Family History Mother Diabetes CAD (coronary artery disease) Father No problems noted. Other Stroke Social History Smoking and tobacco status: never smoked Alcohol intake: never Physical Exam Const: COMMON NORMALS: no acute distress GENERAL APPEARANCE: cooperative and comfortable ORIENTATION/CONSCIOUSNESS: Yes awake, Yes oriented to person, Yes oriented to place and Yes oriented to time HENMT: COMMON NORMALS: normocephalic, atraumatic and hearing grossly normal bilaterally HEAD & SCALP: normocephalic and atraumatic Eye: COMMON NORMALS: Equal, round and reactive pupils present, EOMs intact bilaterally, conjunctivae normal and no scleral icterus CONJUNCTIVA: Yes conjunctivae normal PUPIL: Yes Equal, round and reactive pupils present Neck/C-Spine: COMMON NORMALS: full ROM, no lymphadenopathy, supple and no JVD Lymph: LYMPHATIC: no lymphadenopathy noted and no lymphedema noted Resp: COMMON NORMALS: normal respiratory effort, No retractions, No use of accessory muscles and clear to auscultation bilaterally AUSCULTATION: clear to auscultation bilaterally Cardio: COMMON NORMALS: no JVD, regular rate, regular rhythm and No murmurs present (Cardio) RATE: regular rate RHYTHM: regular rhythm GI: COMMON NORMALS: Soft to palpation and No hepatosplenomegaly present AUSCULTATION: Yes normoactive bowel sounds PALPATION: Yes Soft to palpation, No Tenderness to palpation present (GI), No Guarding due to palpation present (GI) and Yes No hepatosplenomegaly present OTHER: Mild abdominal distention but the bowel abdomen is nontender no tympany on percussion. Extremity: COMMON NORMALS: normal to inspection, capillary refill normal, no clubbing, cyanosis or edema, no calf tenderness and no pedal edema Neuro: SENSORIUM/ORIENTATION: Yes oriented to person, Yes oriented to place and Yes oriented to time Skin: COMMON NORMALS: no rashes or lesions noted GENERAL SKIN EXAM: no rashes or lesions noted Course Vital Signs: Vital signs: Vital Signs Temperature 98.0 F 02/10/20 15:14 Pulse Rate 72 02/10/20 15:14 Respiratory Rate 18 02/10/20 15:14 Blood Pressure 109/60 02/10/20 15:14 Pulse Oximetry 94 02/10/20 15:14 MDM - Weakness MDM Narrative: Medical decision making narrative: Heparinized. Patient will need an echocardiogram Kapil to evaluate for right heart strain. Also need to monitor closely for heart failure. Lab Data: Labs: Lab Results 02/08/20 02/08/20 02/08/20 Range/Units 12:20 12:20 12:20 WBC 7.2 (4.0-10.0) 10^3/ uL RBC 5.28 (4.1-5.3) 10^6/u L Hgb 14.7 (11.5-15.3) g/dL Hct 46.6 (37.0-47.0) % MCV 88.3 (81-99) fL MCH 27.8 L (28.0-34.0) pg MCHC 31.5 (30.0-36.0) g/dL RDW 19.3 H (12.1-15.1) % Plt Count 245 (130-400) 10^3/c mm MPV 10.5 H (7.4-10.4) fL Neut % (Auto) 62.9 % Lymph % (Auto) 22.1 % [place] % (Auto) 10.2 % Eos % (Auto) 3.4 % Baso % (Auto) 1.1 % Neut # (Auto) 4.50 (1.8-7.7) 10^3/u L Lymph # (Auto) 1.6 (0.8-4.8) 10^3/u L [place] # (Auto) 0.7 (0.2-0.9) 10^3/u L Eos # (Auto) 0.2 (0.0-0.8) 10^3/u L Baso # (Auto) 0.1 (0.0-0.1) 10^3/u L Nucleated RBC % (a uto) 0 % Nucleated RBCs # 0.0 /100WBC Fibrinogen 325 (174-498) mg/dL D-Dimer 2.84 H (0-0.59) ug/mIFE U Sodium 132 L (136-145) mmol/L Potassium 5.2 H (3.5-5.1) mmol/L Chloride 102 (98-107) mmol/L Carbon Dioxide 17 L (22-29) mmol/L Anion Gap 18.2 (5-19) BUN 21 (8-23) mg/dL Creatinine 1.1 H (0.5-0.9) mg/dL GFR Calculation Not Reportable Glucose 129 H (65-115) mg/dL Calculated Osmolal ity 279 L (285-295) mOsm/k g Lactic Acid (0.5-2.2) mmol/L Calcium 9.1 (8.5-10.5) mg/dL Magnesium 2.2 (1.7-2.3) mg/dL Ferritin 66 (15-150) ng/mL Total Bilirubin 1.6 H (0.15-1.2) mg/dL AST 26 (0-32) U/L ALT 25 (0-33) U/L Alkaline Phosphata se 75 (35-105) IU/L Lactate Dehydrogen ase 290 H (135-214) U/L Creatine Kinase 78 (26-192) U/L Troponin T Baselin e (0-10) ng/L Troponin T 120 Min [place] (0-10) ng/L Delta Troponin T (0-10) ABS# C-Reactive Protein 22.7 H (0.0-4.9) mg/L NT-Pro-B Natriuret Pep 49058 H (0-450) pg/mL Total Protein 5.5 L (6.6-8.7) g/dL Albumin 3.8 (3.5-5.2) g/dL Globulin 1.7 (1.3-4.6) g/dL Procalcitonin 0.11 (0-0.5) ng/mL Urine Color (Yellow) Urine Appearance (CLEAR) Urine pH (5-7) Ur Specific Gravit y (1.005-1.030) Urine Protein (Negative) Urine Glucose (UA) (Normal) Urine Ketones (Negative) Urine Blood (Negative) Urine Nitrate (Negative) Urine Bilirubin (Negative) Urine Urobilinogen (Negative) mg/dL Ur Leukocyte [place] ase (Negative) Urine RBC (0-2) /hpf Urine WBC (0-5) /hpf Ur Squamous Epith Cells (0-5) /hpf Amorphous Sediment Urine Bacteria (NONE) /hpf SARS-CoV-2 Ag (Rap id) (Negative) 02/08/20 02/08/20 02/08/20 Range/Units 12:20 12:20 12:20 WBC (4.0-10.0) 10^3/ uL RBC (4.1-5.3) 10^6/u L Hgb (11.5-15.3) g/dL Hct (37.0-47.0) % MCV (81-99) fL MCH (28.0-34.0) pg MCHC (30.0-36.0) g/dL RDW (12.1-15.1) % Plt Count (130-400) 10^3/c mm MPV (7.4-10.4) fL Neut % (Auto) % Lymph % (Auto) % [place] % (Auto) % Eos % (Auto) % Baso % (Auto) % Neut # (Auto) (1.8-7.7) 10^3/u L Lymph # (Auto) (0.8-4.8) 10^3/u L [place] # (Auto) (0.2-0.9) 10^3/u L Eos # (Auto) (0.0-0.8) 10^3/u L Baso # (Auto) (0.0-0.1) 10^3/u L Nucleated RBC % (a uto) % Nucleated RBCs # /100WBC Fibrinogen (174-498) mg/dL D-Dimer (0-0.59) ug/mIFE U Sodium (136-145) mmol/L Potassium (3.5-5.1) mmol/L Chloride (98-107) mmol/L Carbon Dioxide (22-29) mmol/L Anion Gap (5-19) BUN (8-23) mg/dL Creatinine (0.5-0.9) mg/dL GFR Calculation Glucose (65-115) mg/dL Calculated Osmolal ity (285-295) mOsm/k g Lactic Acid 3.2 H (0.5-2.2) mmol/L Calcium (8.5-10.5) mg/dL Magnesium (1.7-2.3) mg/dL Ferritin (15-150) ng/mL Total Bilirubin (0.15-1.2) mg/dL AST (0-32) U/L ALT (0-33) U/L Alkaline Phosphata se (35-105) IU/L Lactate Dehydrogen ase (135-214) U/L Creatine Kinase (26-192) U/L Troponin T Baselin e 16 H (0-10) ng/L Troponin T 120 Min [place] (0-10) ng/L Delta Troponin T (0-10) ABS# C-Reactive Protein (0.0-4.9) mg/L NT-Pro-B Natriuret Pep (0-450) pg/mL Total Protein (6.6-8.7) g/dL Albumin (3.5-5.2) g/dL Globulin (1.3-4.6) g/dL Procalcitonin (0-0.5) ng/mL Urine Color (Yellow) Urine Appearance (CLEAR) Urine pH (5-7) Ur Specific Gravit y (1.005-1.030) Urine Protein (Negative) Urine Glucose (UA) (Normal) Urine Ketones (Negative) Urine Blood (Negative) Urine Nitrate (Negative) Urine Bilirubin (Negative) Urine Urobilinogen (Negative) mg/dL Ur Leukocyte [place] ase (Negative) Urine RBC (0-2) /hpf Urine WBC (0-5) /hpf Ur Squamous Epith Cells (0-5) /hpf Amorphous Sediment Urine Bacteria (NONE) /hpf SARS-CoV-2 Ag (Rap id) Negative (Negative) 02/08/20 02/08/20 Range/Units 14:38 15:15 WBC (4.0-10.0) 10^3/ uL RBC (4.1-5.3) 10^6/u L Hgb (11.5-15.3) g/dL Hct (37.0-47.0) % MCV (81-99) fL MCH (28.0-34.0) pg MCHC (30.0-36.0) g/dL RDW (12.1-15.1) % Plt Count (130-400) 10^3/c mm MPV (7.4-10.4) fL Neut % (Auto) % Lymph % (Auto) % [place] % (Auto) % Eos % (Auto) % Baso % (Auto) % Neut # (Auto) (1.8-7.7) 10^3/u L Lymph # (Auto) (0.8-4.8) 10^3/u L [place] # (Auto) (0.2-0.9) 10^3/u L Eos # (Auto) (0.0-0.8) 10^3/u L Baso # (Auto) (0.0-0.1) 10^3/u L Nucleated RBC % (a uto) % Nucleated RBCs # /100WBC Fibrinogen (174-498) mg/dL D-Dimer (0-0.59) ug/mIFE U Sodium (136-145) mmol/L Potassium (3.5-5.1) mmol/L Chloride (98-107) mmol/L Carbon Dioxide (22-29) mmol/L Anion Gap (5-19) BUN (8-23) mg/dL Creatinine (0.5-0.9) mg/dL GFR Calculation Glucose (65-115) mg/dL Calculated Osmolal ity (285-295) mOsm/k g Lactic Acid (0.5-2.2) mmol/L Calcium (8.5-10.5) mg/dL Magnesium (1.7-2.3) mg/dL Ferritin (15-150) ng/mL Total Bilirubin (0.15-1.2) mg/dL AST (0-32) U/L ALT (0-33) U/L Alkaline Phosphata se (35-105) IU/L Lactate Dehydrogen ase (135-214) U/L Creatine Kinase (26-192) U/L Troponin T Baselin e (0-10) ng/L Troponin T 120 Min [place] 12.22 H (0-10) ng/L Delta Troponin T -3.78 L (0-10) ABS# C-Reactive Protein (0.0-4.9) mg/L NT-Pro-B Natriuret Pep (0-450) pg/mL Total Protein (6.6-8.7) g/dL Albumin (3.5-5.2) g/dL Globulin (1.3-4.6) g/dL Procalcitonin (0-0.5) ng/mL Urine Color Dark yellow (Yellow) Urine Appearance Hazy A (CLEAR) Urine pH 5 (5-7) Ur Specific Gravit y 1.005 (1.005-1.030) Urine Protein 1+ H (Negative) Urine Glucose (UA) Norm (Normal) Urine Ketones Negative (Negative) Urine Blood Neg (Negative) Urine Nitrate Negative (Negative) Urine Bilirubin 1+ H (Negative) Urine Urobilinogen 4 H (Negative) mg/dL Ur Leukocyte [place] ase Negative (Negative) Urine RBC 0-4 H (0-2) /hpf Urine WBC None (0-5) /hpf Ur Squamous Epith Cells 10-15 H (0-5) /hpf Amorphous Sediment Not Reportable Urine Bacteria Trace (NONE) /hpf SARS-CoV-2 Ag (Rap id) (Negative) Discharge Plan Discharge Patient Disposition: Admitted As Inpatient Admit Provider: Christy Dejesus Clinical Impression: Acute exacerbation of congestive heart failure, Dilated cardiomyopathy, Pulmonary embolism Condition: Stable Interventions: ED Discharge Assessment Last Done: 02/08/20 16:39 ED Charges Last Done: 02/08/20 16:39 Discharge Date/Time: 02/08/20 16:40 Coding Level of Care Code ED Ob Gyn for Chg Fwd Exam Comprehensive
--- NOTE | 2020-02-08 12:22 | ECG_ITS ---
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 Measurements Intervals [place] Rate: 72 P: 39 RI: 170 QRS: 220 QRSD: 159 T: 45 QT: 463 QTc: 508 Interpretive Statements SINUS RHYTHM MARKED RIGHT AXIS DEVIATION [QRS AXIS > 100] INTRAVENTRICULAR CONDUCTION DELAY [130+ ms QRS DURATION] Compared to ECG 12/29/2019 14:38:21 Right-axis deviation now present Intraventricular conduction delay now present Atrial abnormality no longer present Left-axis deviation no longer present Left bundle-branch block no longer present Electronically Signed On 02-08-2020 17:57:54 CDT by Macario Peraza M.D. [id number] f
--- NOTE | 2020-02-08 12:27 | CT_ITS ---
WS: [id number] CTA CHEST WITH CT ABDOMEN AND PELVIS. HISTORY: Abdominal distention and dehydration. TECHNIQUE: CT angiogram is performed through the chest. Additional imaging is performed through the a bdomen and pelvis with IV contrast. Sagittal and coronal reformats have been submitted. MIP imaging also reviewed. All CT scans at [facility] use at least one of these dose optimization tech niques: automated exposure control; mA and/or kV adjustment per patient size (includes targeted exams where dose is matched to clinical indication); or iterative reconstruction. Contrast: Omnipaque 350; 95 cc IV. DLP: 1161.89 mGy.cm COMPARISON: 12/29/2019. Chest CTA: Poor opacification of the pulmonary arteries. Only a limited amount of contrast in the pul monary arteries. There is mixing of contrast centrally. Linear-like defects in the main and proximal pulmonary arteries are highly suspicious for incomplete emboli. Beyond the lobar branches the opacifi cation is suboptimal. Suboptimal opacification is due to severely enlarged heart with the contrast be ing retained in the RIGHT heart with severe tricuspid regurgitation. Small layering bilateral pleural effusions with mild increased since the prior study. Increased fluid in the pericardial recesses. Em physema with diffuse moderate edema. Groundglass attenuation is probably due to edema but can also be visualized with pulmonary emboli. Abdomen CT: Marked tricuspid regurgitation into the liver with hepatic congestion. No definite masses are identified. Gallbladder has been removed. Normal size spleen. Atrophied pancreas. No adrenal mas s. No renal obstruction or mass. Normal size aorta. Small amount of ascites within the abdomen with m esenteric edema. The amount of ascites has increased. No adenopathy. No GI tract obstruction. Pelvic CT: Moderate amount of free fluid in the pelvis. Urinary bladder is not distended. Increasing thoracic kyphosis. No osteoblastic or osteolytic bone disease. CT/CT angio chest w abd pel w con IMPRESSION: 1. Severe cardiomegaly. Significant RIGHT heart failure with enlargement of th e RIGHT heart chambers since 09/13/2018 and 12/29/2019. Marked interval enlargemen t of the LEFT heart chambers. 2. Poor opacification of the pulmonary arteries due to heart failure. Nonocclu sive thrombus suspected in the proximal pulmonary arteries. Beyond the lobar br anches opacification is significantly limited. 3. Severe tricuspid regurgitation into the liver. 4. Small bilateral pleural effusions with slight increase in size. 5. Small to moderate amount of ascites with mild progression. 6. Anasarca. 7. Moderate pulmonary edema and hepatic congestion.
[2020-02-08 12:38] LABS: Basophils # 0.1 10^3/uL (0.0-0.1); Basophils % 1.1 %; Eosinophils # 0.2 10^3/uL (0.0-0.8); Eosinophils % 3.4 %; Hematocrit 46.6 % (37.0-47.0); Hemoglobin 14.7 g/dL (11.5-15.3); Lymphocytes # 1.6 10^3/uL (0.8-4.8); Lymphocytes % 22.1 %; Mean Corpuscular HGB Conc 31.5 g/dL (30.0-36.0); Mean Corpuscular Hemoglobin 27.8 pg (28.0-34.0); Mean Corpuscular Volume 88.3 fL (81-99); Mean Platelet Volume 10.5 fL (7.4-10.4); Monocytes # 0.7 10^3/uL (0.2-0.9); Monocytes % 10.2 %; Neutrophils % 62.9 %; Nucleated Red Blood Cells % 0 %; Platelet Count 245 10^3/cmm (130-400); Red Blood Count 5.28 10^6/uL (4.1-5.3); Red Cell Distribution Width 19.3 % (12.1-15.1); White Blood Count 7.2 10^3/uL (4.0-10.0)
[2020-02-08 12:49] LABS: Fibrinogen 325 mg/dL (174-498)
[2020-02-08 12:51] LABS: Lactic Sepsis W/Reflex 3.2 mmol/L (0.5-2.2)
[2020-02-08 12:53] LABS: D Dimer 2.84 ug/mIFEU (0-0.59)
[2020-02-08 12:54] LABS: Troponin(5th) Baseline 16 ng/L (0-10)
[2020-02-08 13:02] LABS: NT Pro B Type Natriuretic Pept 13176 pg/mL (0-450); Procalcitonin 0.11 ng/mL (0-0.5)
[2020-02-08 13:14] LABS: Alanine Aminotransferase 25 U/L (0-33); Albumin Level 3.8 g/dL (3.5-5.2); Alkaline Phosphatase 75 IU/L (35-105); Aspartate Amino Transferase 26 U/L (0-32); Blood Urea Nitrogen 21 mg/dL (8-23); Calcium 9.1 mg/dL (8.5-10.5); Chloride 102 mmol/L (98-107); Creatine Phosphokinase 78 U/L (26-192); Ferritin 66 ng/mL (15-150); Globulin 1.7 g/dL (1.3-4.6); Magnesium 2.2 mg/dL (1.7-2.3)
[2020-02-08 13:15] LABS: SARS Covid-2 Antigen Negative (Negative)
[2020-02-08] MEDS: iohexol 350 mg/mL 100 mL Btl IV (13:25)
[2020-02-08 13:32] LABS: Anion Gap 18.2 (5-19); Carbon Dioxide 17 mmol/L (22-29); Glucose 129 mg/dL (65-115); Osmolality Calculated 279 mOsm/kg (285-295); Potassium 5.2 mmol/L (3.5-5.1); Sodium 132 mmol/L (136-145); Total Bilirubin 1.6 mg/dL (0.15-1.2)
[2020-02-08 13:33] LABS: C Reactive Protein 22.7 mg/L (0.0-4.9); Lactate Dehydrogenase 290 U/L (135-214); Total Protein 5.5 g/dL (6.6-8.7)
--- NOTE | 2020-02-08 14:04 | PC.NURSE ---
Pt noted to be 74% on monitor. Upon rounding on pt, it is noted that pt oxygen was turned off. Pt lying on her right side and BP reading as 77/33. Pt instructed to roll on her back, pt elevated in the bed, oxygen turned up to 2LNC and BP retaken. Pt placed on cardiac monitoring. BP now 96/68
[2020-02-08 14:22] LABS: Reflex Lactate Order REFLEX LACTIC ORDERD
--- NOTE | 2020-02-08 14:22 | ECG_ITS ---
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 Measurements Intervals [place] Rate: 75 P: 57 CA: 173 QRS: -58 QRSD: 162 T: 55 QT: 448 QTc: 501 Interpretive Statements SINUS RHYTHM POSSIBLE LEFT ATRIAL ENLARGEMENT [-0.1mV P WAVE IN V1/V2] MARKED LEFT AXIS DEVIATION [QRS AXIS < -30] INTRAVENTRICULAR CONDUCTION DELAY [130+ ms QRS DURATION] Compared to ECG 02/08/2020 12:32:43 Left-axis deviation now present Right-axis deviation no longer present Electronically Signed On 02-08-2020 18:02:58 CDT by Macario Peraza M.D. [id number] f
[2020-02-08 15:26] LABS: Troponin 5 2HR 12.22 ng/L (0-10)
[2020-02-08 15:30] LABS: Troponin 5 2HR Delta -3.78 ABS# (0-10)
[2020-02-08] MEDS: heparin 5,000 unit/mL INJ 1 mL 4000 UNIT IVP (16:37)
[2020-02-08] MEDS: heparin drip 25,000 UNIT/500 ML PREMIX 1297.3 UNIT IV (16:38)
--- NOTE | 2020-02-08 17:13 | PC.NURSE ---
Read and agree with assessment
--- NOTE | 2020-02-08 17:46 | PM.HP ---
Providers/Chief Complaint Admitting Physician: Christy Dejesus MD Primary Care Provider: Camden Fletcher MD Chief Complaint: DEHYDRATION, ABDOMEN DISTENTION History of Present Illness Phuong Maya is a 79 year old female 79 year old female with a past medical history of severe systolic congestive heart failure with last known EF 15%, hypertension and chronic kidney disease h/o recurrent admissions for gastroenteritis, chronic diarrhea and acue decompensated CHF. On last admission she had been started on Entresto, which she appeared to have been tolerating well. Presents today with c/o abdominal discomfort, nausea, vomiting and generalized weakness. CT CAP was perfromed upon admission which showed severe rigth heart failure with enlargement of right chambers, new since previous. Marked interval enlaregemnt of left side chambers. Nonocclusive thrombus suspected in the proximal pulmonary arteries. Severe tricuspid regurgitation into the liver. Moderate pulmonary edema and hepatic congestion. Labs notable for elevated BNP >95866, cr at baseline, elevated lactate 3.2, troponin without significant deltas. Covid rapid antigen negative, COVID PCR ordered from ER and pending at this time. Review of Systems General: Reports: 10 or more systems reviewed and unremarkable except in HPI and below Const: Denies: fever(s), chills or body aches Eyes: Denies: change in vision, blurry vision or photophobia ENMT: Reports: hoarseness; Denies: throat pain, enlarged tonsils, odynophagia or nasal congestion Card: Denies: chest pain, palpitations, irregular heart rhythm, edema, swelling of feet/ankles, lightheadedness, pre-syncope, dyspnea on exertion or orthopnea Resp: Denies: dyspnea, productive cough, non-productive cough, wheezing, stridor, pain on inspiration, change in phlegm color, hemoptysis or chest congestion GI: Reports: abdominal pain, nausea and vomiting; Denies: hematemesis, coffee ground emesis, dysphagia, heartburn, diarrhea, constipation, GI cramping, change in stool character, hematochezia or melena : Denies: flank pain, difficulty voiding, dysuria, urinary frequency, urinary urgency, urinary hesitancy or hematuria Musc: Denies: neck pain, back pain, extremity pain, joint swelling, joint warmth or deformity Neuro: Denies: headache(s), numbness in extremities, weakness in extremities, sensory changes, difficulty walking, frequent falls, dizziness, vertigo, behavioral changes, Slurred speech present or seizure-like activity Psych: Denies: anxiety, depression, suicidal ideation or homicidal ideation Endo: Denies: polyuria, polydipsia, tired all the time, cold intolerance or hot flashes Phu/Lymph: Denies: easy bruising or easy bleeding Medications/Allergies Home Medications Medication Instructions Recorded Confirmed Last Taken Type carvedilol 3.125 mg tablet 3.125 mg PO BID 90 Days #180 tab 08/03/19 02/08/20 02/07/20 Rx aspirin 81 mg tablet,delayed 81 mg PO DAILY 10/02/19 02/08/20 02/07/20 History release cholecalciferol (vitamin D3) 25 25 mcg PO DAILY 10/02/19 02/08/20 02/07/20 History mcg (1,000 unit) capsule lactobacillus combination no.4 3 See Rx Instructions .ROUTE .COMPLEX 10/02/19 02/08/20 02/07/20 History billion cell capsule levothyroxine 75 mcg tablet 75 mcg PO DAILY 10/02/19 02/08/20 02/07/20 History ondansetron 4 mg PO Q6H PRN #10 tab 12/06/19 02/08/20 12/28/19 Rx PNV cmb#95-ferrous fumarate-FA 1 tab PO DAILY 12/29/19 02/08/20 02/07/20 History [] alprazolam 0.25 mg PO BID PRN 12/29/19 02/08/20 02/07/20 History escitalopram oxalate 5 mg tablet 10 mg PO DAILY tab 01/06/20 02/08/20 02/07/20 History furosemide 20 mg tablet 20 mg PO DIRECTED tab 01/06/20 02/08/20 02/07/20 History potassium chloride 10 mEq 20 meq PO BID tab 01/06/20 02/08/20 02/07/20 History tablet,extended release sacubitril 24 mg-valsartan 26 mg 1 tab PO DAILY #30 tab 01/29/20 02/08/20 02/07/20 Rx tablet atorvastatin 5 mg PO DAILY 02/08/20 02/08/20 02/07/20 History donepezil 5 mg PO DAILY 02/08/20 02/08/20 02/07/20 History Allergies Allergy/AdvReac Type Severity Reaction Status Date / Time acetaminophen [From Tylenol] Allergy Unknown Unknown Verified 12/29/19 13:48 PFSH Acute PFSH: Medical History Acute on chronic diastolic (congestive) heart failure Dilated cardiomyopathy Diverticulitis Fibromyalgia GERD (gastroesophageal reflux disease) Hyperlipidemia Hypokalemia Hypotension Hypothyroidism Rheumatoid arthritis Sleep apnea Patient is on CPAP. Surgical History H/O: hysterectomy History of appendectomy History of PTCA No intervention September 2019 Hx of cholecystectomy Family History Mother Diabetes CAD (coronary artery disease) Father No problems noted. Other Stroke Social History Smoking and tobacco status: never smoked Alcohol intake: never Vitals/I&O/Wt Last Vital Signs Temp 97.6 F 02/08/20 17:12 Pulse 76 02/08/20 17:12 Resp 18 02/08/20 17:12 BP 101/71 02/08/20 17:12 Pulse Ox 100 02/08/20 17:12 Weight last 48 hrs Weight 58.967 kg Physical Exam Const: COMMON NORMALS: no acute distress, average body habitus, patient oriented x3, no limitations, healthy appearing, alert and well nourished HENMT: COMMON NORMALS: normocephalic and atraumatic HEAD & SCALP: normocephalic and atraumatic Eye: COMMON NORMALS: Equal, round and reactive pupils present, EOMs intact bilaterally, conjunctivae normal and no scleral icterus CONJUNCTIVA: Yes conjunctivae normal PUPIL: Yes Equal, round and reactive pupils present Neck/C-Spine: COMMON NORMALS: no JVD Resp: COMMON NORMALS: normal respiratory effort, No retractions, No use of accessory muscles, clear to auscultation bilaterally and percussion normal AUSCULTATION: clear to auscultation bilaterally PERCUSSION: percussion normal Cardio: COMMON NORMALS: no JVD, regular rate, regular rhythm, S1 normal heart sound present, S2 normal heart sound present, No gallops present (Cardio), No clicks present (Cardio), No murmurs present (Cardio), No rub (Cardio) and Peripheral pulses 2+ throughout RATE: regular rate RHYTHM: regular rhythm HEART SOUNDS: S1 normal heart sound present and S2 normal heart sound present PERIPHERAL PULSES: Peripheral pulses 2+ throughout GI: COMMON NORMALS: Normal to inspection, nondistended, normoactive bowel sounds present, Soft to palpation, non-tender, No hepatosplenomegaly present, no masses and no bruits PALPATION: Yes Soft to palpation and Yes No hepatosplenomegaly present Extremity: COMMON NORMALS: normal to inspection, full ROM, capillary refill normal, no joint enlargement, no clubbing, cyanosis or edema, no calf tenderness and no pedal edema Neuro: COMMON NORMALS: patient oriented x3, CN's II-XII intact bilaterally, moves all extremities, no focal motor deficits, no sensory deficits noted, deep tendon reflexes 2+ bilaterally and gait normal SENSORIUM/ORIENTATION: Yes alert Psych: COMMON NORMALS: mental status grossly normal, Normal thought process present, cooperative, normal affect, speech normal, activity/motor behavior normal, denies hallucinations, denies homicidal ideation and denies suicidal ideation SPEECH: Yes normal speech THOUGHT PROCESS: Normal thought process present Skin: COMMON NORMALS: no rashes or lesions noted, no wounds, turgor normal, no jaundice, no petechiae and no mottling GENERAL SKIN EXAM: no rashes or lesions noted and turgor normal Data : 02/08/20 12:20 02/08/20 12:20 A&P Assessment and plan (1) Acute exacerbation of congestive heart failure: Status: Acute Qualifiers: Heart failure type: unspecified Qualified Code(s): I50.9 - Heart failure, unspecified (2) Abdominal pain: Status: Acute Qualifiers: Abdominal location: generalized Qualified Code(s): R10.84 - Generalized abdominal pain (3) Sleep apnea: Status: Acute Qualifiers: Sleep apnea type: obstructive Qualified Code(s): G47.33 - Obstructive sleep apnea (adult) (pediatric) (4) GERD (gastroesophageal reflux disease): Status: Acute Qualifiers: Esophagitis presence: esophagitis presence not specified Qualified Code(s): K21.9 - Gastro-esophageal reflux disease without esophagitis (5) Dilated cardiomyopathy: Status: Acute (6) Hyperkalemia: Status: Acute (7) Pulmonary embolism: Status: Acute Additional A&P Information # Acute on chronic systolic CHF exacerbation Patient has missed all medeications today Clinically appears to be volume overloaded, elevated BNP >10562, CT chest and CXR with vascular congestion Lasix 40mg iv q12h continue Entresto continue coreg, ASA # Pulmonry embolism Discontinue heparin srip, start lovenox 1mg/kg BID and monitor Hb closely Evidence of R heart strain on CT chest with severe TR # hyperkalemia : starting on diuresis, no acute changes on EKG, monitor with am labs # Elevated lactate may be related to hypoperfusion due to low EF. With diarrhea, nausea and other GI symptoms with patient's history of sytsolic heart failure concerning for bowel ischemia, will monitor serial lactate levels and monitor for worsening GI symptoms or signs. No current evidence of bowel necrosis on CT abdomen today DVT ppx: currently on full dose lovenox Attestations Medical Necessity Statement*: anticipate >2 midnight admission for managemnet of PE, acute on chronic systolic CHF Coding Level of Care Code Acute Distribution Engineering Technologist for Chg Fwd Diagnoses Acute exacerbation of congestive heart failure I50.9 Heart failure type: unspecified Abdominal pain R10.84 Abdominal location: generalized Sleep apnea G47.33 Sleep apnea type: obstructive GERD (gastroesophageal reflux disease) K21.9 Esophagitis presence: esophagitis presence not specified Dilated cardiomyopathy I42.0 Hyperkalemia E87.5 Pulmonary embolism I26.99
--- NOTE | 2020-02-08 18:22 | ECG_ITS ---
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 Measurements Intervals [place] Rate: 75 P: 43 CO: 177 QRS: -56 QRSD: 161 T: 100 QT: 457 QTc: 511 Interpretive Statements SINUS RHYTHM MARKED LEFT AXIS DEVIATION [QRS AXIS < -30] LEFT BUNDLE BRANCH BLOCK [120+ ms QRS DURATION, 80+ ms Q/S IN V1/V2, 85+ ms R IN I/aVL/V5/V6] INTERPRETATION BASED ON A DEFAULT AGE OF 40 YEARS Compared to ECG 02/08/2020 14:40:32 Left bundle-branch block now present Intraventricular conduction delay no longer present Electronically Signed On 02-09-2020 10:49:46 CDT by Stanford Ware M.D. [id number]
[2020-02-08 19:08] LABS: Partial Thromboplastin Time > 250.0 SECONDS (23.9-36.7)
[2020-02-08] MEDS: enoxaparin 100 mg/mL Syringe 60 MG SUBCUT (19:49)
[2020-02-08] MEDS: FUROsemide 10 mg/mL SDV 4mL 40 MG IVP (19:49)
[2020-02-08] MEDS: carvedilol 3.125 mg Tablet PO (19:49)
[2020-02-08 20:05] LABS: Bilirubin Urine 1+ (Negative); Blood Urine Neg (Negative); Glucose Urine UA Norm (Normal); Ketones Urine Negative (Negative); Leukocyte Esterase Urine Negative (Negative); Nitrate Urine Negative (Negative); Protein Urine 1+ (Negative); Specific Gravity, Urine 1.005 (1.005-1.030); Urine Appearance Hazy (CLEAR); Urine Color Dark Yellow (Yellow); Urobilinogen Urine 4 mg/dL (Negative); pH Urine 5 (5-7)
[2020-02-08 20:06] LABS: Add Urine Microscopic? YES
[2020-02-08 20:07] LABS: Add Urine Culture? No; Bacteria Urine TRACE /hpf; RBC Urine 0-4 /hpf (0-2)
[2020-02-09] VITALS: BP 94/64; PULSE 71; RESP 18; TEMP 36.4; O2SAT 96
[2020-02-09] MEDS: ALPRAZolam 0.25 mg Tablet PO ×2 (00:56→22:58)
[2020-02-09 03:27] VITALS: BP 92/59; PULSE 63; RESP 18; TEMP 36.5; O2SAT 94
[2020-02-09] MEDS: enoxaparin 100 mg/mL Syringe 60 MG SUBCUT ×2 (05:08→17:52)
[2020-02-09] MEDS: FUROsemide 10 mg/mL SDV 4mL 40 MG IVP ×2 (05:09→17:52)
[2020-02-09 05:22] LABS: Basophils # 0.1 10^3/uL (0.0-0.1); Basophils % 0.8 %; Eosinophils # 0.3 10^3/uL (0.0-0.8); Hematocrit 42.8 % (37.0-47.0); Hemoglobin 13.4 g/dL (11.5-15.3); Lymphocytes # 1.1 10^3/uL (0.8-4.8); Lymphocytes % 17.7 %; Mean Corpuscular HGB Conc 31.3 g/dL (30.0-36.0); Mean Corpuscular Hemoglobin 27.6 pg (28.0-34.0); Mean Corpuscular Volume 88.2 fL (81-99); Mean Platelet Volume 10.7 fL (7.4-10.4); Monocytes # 0.4 10^3/uL (0.2-0.9); Monocytes % 7.1 %; Neutrophils # 4.25 10^3/uL (1.8-7.7); Neutrophils % 69.1 %; Nucleated Red Blood Cells % 0 %; Platelet Count 199 10^3/cmm (130-400); Red Blood Count 4.85 10^6/uL (4.1-5.3); Red Cell Distribution Width 18.9 % (12.1-15.1); White Blood Count 6.2 10^3/uL (4.0-10.0)
[2020-02-09 05:38] LABS: Partial Thromboplastin Time 37.9 SECONDS (23.9-36.7)
[2020-02-09 05:53] LABS: Alanine Aminotransferase 20 U/L (0-33); Albumin Level 3.4 g/dL (3.5-5.2); Alkaline Phosphatase 67 IU/L (35-105); Anion Gap 16.3 (5-19); Aspartate Amino Transferase 24 U/L (0-32); Blood Urea Nitrogen 20 mg/dL (8-23); Calcium 8.8 mg/dL (8.5-10.5); Carbon Dioxide 20 mmol/L (22-29); Chloride 103 mmol/L (98-107); Globulin 1.9 g/dL (1.3-4.6); Glucose 105 mg/dL (65-115); Osmolality Calculated 283 mOsm/kg (285-295); Potassium 4.3 mmol/L (3.5-5.1); Sodium 135 mmol/L (136-145); Total Bilirubin 1.6 mg/dL (0.15-1.2); Total Protein 5.3 g/dL (6.6-8.7)
[2020-02-09 05:54] LABS: Lactate (Lactic Acid level) 1.1 mmol/L (0.5-2.2)
[2020-02-09 07:39] VITALS: BP 126/72; PULSE 78; RESP 16; TEMP 37; O2SAT 96
[2020-02-09] MEDS: aspirin 81 mg EC Tablet PO (09:00)
[2020-02-09] MEDS: escitalopram 10 mg Tablet PO (09:00)
[2020-02-09] MEDS: donepezil 5 MG Tablet PO (09:01)
[2020-02-09] MEDS: levothyroxine 150 mcg Tablet 75 MCG PO (09:01)
[2020-02-09] MEDS: carvedilol 3.125 mg Tablet PO ×2 (09:01→17:52)
[2020-02-09] MEDS: sacubitril/valsartan 24-26 mg Tablet 1 EACH PO (09:14)
[2020-02-09 11:20] VITALS: BP 110/68; PULSE 68; RESP 16; TEMP 37.1; O2SAT 95
[2020-02-09 15:47] VITALS: BP 136/70; PULSE 72; RESP 16; TEMP 36.6; O2SAT 96
--- NOTE | 2020-02-09 17:39 | P.PN_ITS ---
Subjective Subjective: Interval history: Appears to be improving today. Had 3 episodes of diarrhea this morning but now better. He has slightly more energy today and is able to ambulate from her bed to the bathroom. Urinating about 1.5 L today. No complaints of dyspnea currently. Vitals/I&O/Wt Last Vital Signs Temp 97.8 F 02/09/20 15:47 Pulse 72 02/09/20 15:47 Resp 16 02/09/20 15:47 BP 136/70 02/09/20 15:47 Pulse Ox 96 02/09/20 15:47 02/09/20 02/09/20 02/09/20 06:59 14:59 22:59 Intake Total 360 / 360 Output Total 650 / 650 1200 / 1200 Balance -650 / -650 -840 / -840 Weight last 48 hrs Weight 58.967 kg Physical Exam Narrative: EXAM NARRATIVE: GEN: Awake, alert and oriented, no acute distress CVS: S1S@ N RS: CTA B/L Abd: Soft, nt/nd , bs+ FRAME BANDER: no focal neuro deficits Data : 02/09/20 05:12 02/09/20 05:12 A&P Assessment and plan (1) Acute exacerbation of congestive heart failure: Status: Acute Qualifiers: Heart failure type: unspecified Qualified Code(s): I50.9 - Heart failure, unspecified (2) Abdominal pain: Status: Acute Qualifiers: Abdominal location: generalized Qualified Code(s): R10.84 - Generalized abdominal pain (3) Sleep apnea: Status: Acute Qualifiers: Sleep apnea type: obstructive Qualified Code(s): G47.33 - Obstructive sleep apnea (adult) (pediatric) (4) GERD (gastroesophageal reflux disease): Status: Acute Qualifiers: Esophagitis presence: esophagitis presence not specified Qualified Code(s): K21.9 - Gastro-esophageal reflux disease without esophagitis (5) Dilated cardiomyopathy: Status: Acute (6) Hyperkalemia: Status: Acute (7) Pulmonary embolism: Status: Acute Additional A&P Information # Acute on chronic systolic CHF exacerbation Patient has missed all medeications today Clinically appears to be volume overloaded, elevated BNP >73785, CT chest and CXR with vascular congestion Lasix 40mg iv q12h , will plan to transition to p.o. diuresis tomorrow if continues to do well. continue Entresto continue coreg, ASA # Pulmonary embolism Discontinue heparin srip, start lovenox 1mg/kg BID and monitor Hb closely Evidence of R heart strain on CT chest with severe TR Plan to switch anticoagulation to NOACs tomorrow if remains stable # hyperkalemia : resolved # Elevated lactate may be related to hypoperfusion due to low EF. Now resolved. No current evidence of bowel necrosis on CT abdomen today DVT ppx: currently on full dose lovenox Attestations Medical Necessity Statement*: Ongoing need for IV diuresis, anticoagulation for newly diagnosed PE Coding Level of Care Code Acute Billing And Accounting Staff Assistant for Chg Fwd Diagnoses Acute exacerbation of congestive heart failure I50.9 Heart failure type: unspecified Abdominal pain R10.84 Abdominal location: generalized Sleep apnea G47.33 Sleep apnea type: obstructive GERD (gastroesophageal reflux disease) K21.9 Esophagitis presence: esophagitis presence not specified Dilated cardiomyopathy I42.0 Hyperkalemia E87.5 Pulmonary embolism I26.99
--- NOTE | 2020-02-09 19:07 | PC.NURSE ---
Report to Harsha MONTEMAYOR at this time.
[2020-02-09 20:00] VITALS: BP 99/67; PULSE 70; RESP 18; TEMP 36.4; O2SAT 90
[2020-02-09 22:50] LABS: Coronavirus Lab Test PTC Negative
[2020-02-10] VITALS (7 sets, daily range): BP systolic 98–109; BP diastolic 60–71; PULSE 63–83; RESP 17–20; TEMP 36.6–37.1; O2SAT 91–95
[2020-02-10] MEDS: FUROsemide 10 mg/mL SDV 4mL 40 MG IVP (05:15)
[2020-02-10] MEDS: enoxaparin 100 mg/mL Syringe 60 MG SUBCUT (05:15)
[2020-02-10 05:21] LABS: Basophils # 0.1 10^3/uL (0.0-0.1); Basophils % 0.9 %; Eosinophils # 0.3 10^3/uL (0.0-0.8); Hematocrit 40.4 % (37.0-47.0); Hemoglobin 12.9 g/dL (11.5-15.3); Lymphocytes # 0.9 10^3/uL (0.8-4.8); Lymphocytes % 15.9 %; Mean Corpuscular HGB Conc 31.9 g/dL (30.0-36.0); Mean Corpuscular Hemoglobin 27.9 pg (28.0-34.0); Mean Corpuscular Volume 87.3 fL (81-99); Mean Platelet Volume 9.9 fL (7.4-10.4); Monocytes # 0.4 10^3/uL (0.2-0.9); Monocytes % 7.6 %; Neutrophils # 3.71 10^3/uL (1.8-7.7); Neutrophils % 69.2 %; Nucleated Red Blood Cells % 0 %; Platelet Count 185 10^3/cmm (130-400); Red Blood Count 4.63 10^6/uL (4.1-5.3); Red Cell Distribution Width 18.9 % (12.1-15.1); White Blood Count 5.4 10^3/uL (4.0-10.0)
[2020-02-10 05:40] LABS: Alanine Aminotransferase 17 U/L (0-33); Alkaline Phosphatase 67 IU/L (35-105); Aspartate Amino Transferase 20 U/L (0-32); Blood Urea Nitrogen 12 mg/dL (8-23); Calcium 8.3 mg/dL (8.5-10.5); Carbon Dioxide 23 mmol/L (22-29); Chloride 102 mmol/L (98-107); Globulin 1.9 g/dL (1.3-4.6); Glucose 81 mg/dL (65-115); Osmolality Calculated 281 mOsm/kg (285-295); Sodium 136 mmol/L (136-145); Total Bilirubin 1.5 mg/dL (0.15-1.2); Total Protein 4.9 g/dL (6.6-8.7)
--- NOTE | 2020-02-10 07:28 | PC.NURSE ---
Received report from Harsha MONTEMAYOR.
[2020-02-10] MEDS: carvedilol 3.125 mg Tablet PO ×2 (08:31→17:10)
[2020-02-10] MEDS: escitalopram 10 mg Tablet PO (08:31)
[2020-02-10] MEDS: sacubitril/valsartan 24-26 mg Tablet 1 EACH PO (08:31)
[2020-02-10] MEDS: donepezil 5 MG Tablet PO (08:31)
[2020-02-10] MEDS: levothyroxine 150 mcg Tablet 75 MCG PO (08:31)
[2020-02-10] MEDS: aspirin 81 mg EC Tablet PO (08:31)
[2020-02-10] MEDS: potassium chloride ER 10 mEq Tablet 40 MEQ PO (10:15)
--- NOTE | 2020-02-10 15:54 | PM.PN ---
Subjective Subjective: Interval history: No acute events overnight. Currently saturating well on 2 L/min, trying to be weaned down to room air. One episode of diarrhea this morning. 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 deficits Data : 02/10/20 05:02 02/10/20 05:02 A&P Assessment and plan (1) Acute exacerbation of congestive heart failure: Status: Acute Qualifiers: Heart failure type: unspecified Qualified Code(s): I50.9 - Heart failure, unspecified (2) Abdominal pain: Status: Acute Qualifiers: Abdominal location: generalized Qualified Code(s): R10.84 - Generalized abdominal pain (3) Sleep apnea: Status: Acute Qualifiers: Sleep apnea type: obstructive Qualified Code(s): G47.33 - Obstructive sleep apnea (adult) (pediatric) (4) GERD (gastroesophageal reflux disease): Status: Acute Qualifiers: Esophagitis presence: esophagitis presence not specified Qualified Code(s): K21.9 - Gastro-esophageal reflux disease without esophagitis (5) Dilated cardiomyopathy: Status: Acute (6) Hyperkalemia: Status: Acute (7) Pulmonary embolism: Status: Acute Additional A&P Information # Acute on chronic systolic CHF exacerbation Last known EF is at 15% On CTA of the chest it is also noted to be significant right heart failure with enlargement of the right heart chamber since September. There is also marked interval enlargement of the left heart chambers. Clinically appears to be volume overloaded, elevated BNP >38246, CT chest and CXR with vascular congestion Lasix 40mg iv q12h , urine output at 1.5 L, transition to 40 mg p.o. twice daily Lasix today. Orally. Hypokalemia with potassium of 3.0 today, supplemented continue Entresto continue coreg, ASA # Pulmonary embolism Discontinue Lovenox today and start Eliquis 10 mg p.o. twice daily. We will plan to use this dose for the first 7 days and then reduce to 5 mg p.o. twice daily for PE. Evidence of R heart strain on CT chest with severe TR #Hypokalemia: Supplemented will repeat today # Elevated lactate may be related to hypoperfusion due to low EF. Now resolved. No current evidence of bowel necrosis on CT abdomen DVT ppx: currently on full dose lovenox CODE STATUS is allow natural . This was changed to allow natural yesterday, however not reflected in the electronic medical record. Will attempt to change in system Attestations Medical Necessity Statement*: transition to oral anticoagulation and oral diuretics Coding Level of Care Code Acute Medical Director Occupational Health for Chg Fwd Diagnoses Acute exacerbation of congestive heart failure I50.9 Heart failure type: unspecified Abdominal pain R10.84 Abdominal location: generalized Sleep apnea G47.33 Sleep apnea type: obstructive GERD (gastroesophageal reflux disease) K21.9 Esophagitis presence: esophagitis presence not specified Dilated cardiomyopathy I42.0 Hyperkalemia E87.5 Pulmonary embolism I26.99
[2020-02-10] MEDS: FUROsemide 40 mg Tablet PO (17:10)
[2020-02-10] MEDS: apixaban 5 mg Tablet 10 MG PO (17:12)
--- NOTE | 2020-02-10 21:09 | PC.RESP ---
started pt on continuous pulse ox as ordered- will continue to monitor pt.
[2020-02-10] MEDS: ALPRAZolam 0.25 mg Tablet PO (22:15)
[2020-02-11] VITALS (9 sets, daily range): BP systolic 91–106; BP diastolic 62–73; PULSE 77–83; RESP 16–20; TEMP 36.4–37.1; O2SAT 91–96
[2020-02-11 05:17] LABS: Basophils % 0.6 %; Eosinophils # 0.3 10^3/uL (0.0-0.8); Eosinophils % 4.6 %; Hematocrit 43.5 % (37.0-47.0); Hemoglobin 13.6 g/dL (11.5-15.3); Mean Corpuscular HGB Conc 31.3 g/dL (30.0-36.0); Mean Corpuscular Volume 86.3 fL (81-99); Mean Platelet Volume 10.3 fL (7.4-10.4); Monocytes # 0.6 10^3/uL (0.2-0.9); Monocytes % 8.6 %; Neutrophils # 4.45 10^3/uL (1.8-7.7); Neutrophils % 69.9 %; Nucleated Red Blood Cells % 0 %; Platelet Count 199 10^3/cmm (130-400); Red Blood Count 5.04 10^6/uL (4.1-5.3); Red Cell Distribution Width 18.8 % (12.1-15.1); White Blood Count 6.4 10^3/uL (4.0-10.0)
[2020-02-11 05:39] LABS: Alanine Aminotransferase 21 U/L (0-33); Albumin Level 3.6 g/dL (3.5-5.2); Alkaline Phosphatase 71 IU/L (35-105); Anion Gap 16.8 (5-19); Aspartate Amino Transferase 24 U/L (0-32); Blood Urea Nitrogen 11 mg/dL (8-23); Calcium 8.6 mg/dL (8.5-10.5); Carbon Dioxide 21 mmol/L (22-29); Chloride 101 mmol/L (98-107); Globulin 2.1 g/dL (1.3-4.6); Glucose 98 mg/dL (65-115); Osmolality Calculated 279 mOsm/kg (285-295); Potassium 3.8 mmol/L (3.5-5.1); Sodium 135 mmol/L (136-145); Total Bilirubin 1.8 mg/dL (0.15-1.2); Total Protein 5.7 g/dL (6.6-8.7)
[2020-02-11 05:51] LABS: Thyroid Stimulating Hormone 4.03 uIU/mL (0.27-4.20)
[2020-02-11 06:43] LABS: Free T4 Free Thyroxine 1.32 ng/dL (0.82-1.77); T3 Free 1.3 PG/ML (2.0-4.4)
[2020-02-11] MEDS: ondansetron 2 mg/ML SDV 2 mL 4 MG IVP (07:07)
[2020-02-11] MEDS: FUROsemide 40 mg Tablet PO ×2 (08:32→15:27)
[2020-02-11] MEDS: apixaban 5 mg Tablet 10 MG PO ×2 (08:32→16:58)
[2020-02-11] MEDS: aspirin 81 mg EC Tablet PO (08:32)
[2020-02-11] MEDS: donepezil 5 MG Tablet PO (08:33)
[2020-02-11] MEDS: levothyroxine 150 mcg Tablet 75 MCG PO (08:33)
[2020-02-11] MEDS: carvedilol 3.125 mg Tablet PO ×2 (08:33→17:26)
[2020-02-11] MEDS: escitalopram 10 mg Tablet PO (08:33)
[2020-02-11] MEDS: sacubitril/valsartan 24-26 mg Tablet 1 EACH PO (08:34)
--- NOTE | 2020-02-11 09:16 | PC.SOCIAL ---
IMM Update Pg.2 of IMM updated and reviewed with patient, who verbalized understanding. Copy provided.
--- NOTE | 2020-02-11 11:16 | USCV_ITS ---
Phuong Maya Age: 79 Gender: F : 1940 Exam Date: 02/11/2020 11:36 Ordering Phys: Christy Dejesus MD Technologist: Graciela Ho [place] [facility] [place]: PE HISTORY: Pulmonary embolism. PROCEDURES: Comparison: none available. The venous duplex Doppler examination of both lower extremities was performed in the standard fashion. The following venous structures were evaluated: common femoral vein, profunda vein, proximal portion of the greater saphenous vein, superficial femoral vein, and the popliteal vein. In addition, the posterior tibial and peroneal trunk were evaluated. Serial compression, augmentation maneuvers, and spectral Doppler flow evaluation were performed. FINDINGS: Normal 2-D Doppler and augmentation and compressibility throughout the lower extremity venous structures. Additional imaging through the proximal calf veins also reveals no thrombus. Limited evaluation of the greater saphenous vein is patent with no thrombus. CONCLUSIONS No DVT bilateral lower extremities. Dr. Clare Bustamante DO (Electronically Signed) Final Date: 11 February 2020 14:42 S
--- NOTE | 2020-02-11 17:21 | P.PN_ITS ---
Subjective Subjective: Interval history: Overnight oximetry study with noted episodes of desaturation for which patient requires 2 L/min oxygen via nasal cannula at nighttime. Today she was noted to be hypotensive with systolic blood pressure in the 80s. For this the morning dose of Lasix and Coreg were held. After which the blood pressure is improved to 100 systolic. Diarrhea is resolved t frantz, patient states she had 2 small semi formed BM. 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: no focal neuro deficits Data : 02/11/20 04:51 02/11/20 04:51 A&P Assessment and plan (1) Acute exacerbation of congestive heart failure: Status: Acute (2) Abdominal pain: Status: Acute Qualifiers: Abdominal location: generalized Qualified Code(s): R10.84 - Generalized abdominal pain (3) Sleep apnea: Status: Acute Qualifiers: Sleep apnea type: obstructive Qualified Code(s): G47.33 - Obstructive sleep apnea (adult) (pediatric) (4) GERD (gastroesophageal reflux disease): Status: Acute Qualifiers: Esophagitis presence: esophagitis presence not specified Qualified Code(s): K21.9 - Gastro-esophageal reflux disease without esophagitis (5) Dilated cardiomyopathy: Status: Acute (6) Hyperkalemia: Status: Acute (7) Pulmonary embolism: Status: Acute Additional A&P Information # Acute on chronic systolic CHF exacerbation Last known EF is at 15% On CTA of the chest it is also noted to be significant right heart failure with enlargement of the right heart chamber since September. There is also marked interval enlargement of the left heart chambers. Clinically appears to be volume overloaded, elevated BNP >54335, CT chest and CXR with vascular congestion Lasix 40mg iv q12h ---> 40 mg p.o. twice daily Lasix. patient was taking 60mg po qd priro to admission This mornign notes to be hypotensive for which coreg and lasix were held. Check orthostatsics,patient reports mild dizziness Hypokalemia resolved continue Entresto continue coreg evening dose if systolic BP >100 # Pulmonary embolism Continue Eliquis 10 mg p.o. twice daily. We will plan to use this dose for the first 7 days and then reduce to 5 mg p.o. twice daily for PE. Evidence of R heart strain on CT chest with severe TR #Hypokalemia: Supplemented will repeat today # Elevated lactate may be related to hypoperfusion due to low EF. Now resolved. No current evidence of bowel necrosis on CT abdomen DVT ppx: currently on full dose lovenox CODE STATUS is allow natural . Attestations Medical Necessity Statement*: improving acute exacerbation of CHF,hypotensive this morning with SBP 80s, will monitor after holding am dose of medications Coding Level of Care Code Acute Commissary Agent for Chg Fwd Diagnoses Acute exacerbation of congestive heart failure I50.9 Abdominal pain R10.84 Abdominal location: generalized Sleep apnea G47.33 Sleep apnea type: obstructive GERD (gastroesophageal reflux disease) K21.9 Esophagitis presence: esophagitis presence not specified Dilated cardiomyopathy I42.0 Hyperkalemia E87.5 Pulmonary embolism I26.99
--- NOTE | 2020-02-11 17:55 | PC.NURSE ---
Shift summary Patient has been alert and oriented to person and place this shift. She has denied pain. Stool sample sent per physician orders. She is noted to have decreased urine output at 350ml this shift with physician notified. No other changes noted this shift.
[2020-02-11] MEDS: ALPRAZolam 0.25 mg Tablet PO (23:37)
[2020-02-12] VITALS: BP 92/63; PULSE 74; RESP 16; TEMP 36.6; O2SAT 97
[2020-02-12 04:00] VITALS: BP 103/70; PULSE 74; RESP 16; TEMP 36.4; O2SAT 94
[2020-02-12 05:02] LABS: Basophils % 0.8 %; Eosinophils # 0.3 10^3/uL (0.0-0.8); Eosinophils % 4.9 %; Hematocrit 41.3 % (37.0-47.0); Lymphocytes # 1.2 10^3/uL (0.8-4.8); Lymphocytes % 23.8 %; Mean Corpuscular HGB Conc 31.5 g/dL (30.0-36.0); Mean Corpuscular Hemoglobin 27.5 pg (28.0-34.0); Mean Corpuscular Volume 87.5 fL (81-99); Mean Platelet Volume 10.3 fL (7.4-10.4); Monocytes # 0.5 10^3/uL (0.2-0.9); Monocytes % 8.8 %; Neutrophils # 3.14 10^3/uL (1.8-7.7); Neutrophils % 61.3 %; Nucleated Red Blood Cells % 0 %; Platelet Count 198 10^3/cmm (130-400); Red Blood Count 4.72 10^6/uL (4.1-5.3); Red Cell Distribution Width 18.7 % (12.1-15.1); White Blood Count 5.1 10^3/uL (4.0-10.0)
[2020-02-12 05:27] LABS: Alanine Aminotransferase 20 U/L (0-33); Albumin Level 3.3 g/dL (3.5-5.2); Alkaline Phosphatase 73 IU/L (35-105); Anion Gap 14.6 (5-19); Aspartate Amino Transferase 25 U/L (0-32); Blood Urea Nitrogen 14 mg/dL (8-23); Carbon Dioxide 22 mmol/L (22-29); Chloride 101 mmol/L (98-107); Globulin 2.1 g/dL (1.3-4.6); Glucose 106 mg/dL (65-115); Osmolality Calculated 279 mOsm/kg (285-295); Potassium 3.6 mmol/L (3.5-5.1); Sodium 134 mmol/L (136-145); Total Bilirubin 1.7 mg/dL (0.15-1.2); Total Protein 5.4 g/dL (6.6-8.7)
[2020-02-12 07:26] VITALS: BP 108/72; PULSE 68; RESP 18; TEMP 36.6; O2SAT 96
[2020-02-12] MEDS: levothyroxine 150 mcg Tablet 75 MCG PO (08:17)
[2020-02-12] MEDS: apixaban 5 mg Tablet 10 MG PO (08:17)
[2020-02-12] MEDS: escitalopram 10 mg Tablet PO (08:17)
[2020-02-12] MEDS: aspirin 81 mg EC Tablet PO (08:17)
[2020-02-12] MEDS: carvedilol 3.125 mg Tablet PO (08:17)
[2020-02-12] MEDS: FUROsemide 40 mg Tablet PO (08:17)
[2020-02-12] MEDS: donepezil 5 MG Tablet PO (08:17)
[2020-02-12 09:30] VITALS: PULSE 69; O2SAT 99
[2020-02-12] MEDS: sacubitril/valsartan 24-26 mg Tablet 1 EACH PO (10:43)
[2020-02-12 11:29] VITALS: BP 98/64; PULSE 71; RESP 18; TEMP 36.4; O2SAT 97
--- NOTE | 2020-02-12 15:13 | PC.NURSE ---
Discharge instructions Patient discharge instructions given per physician orders. New meds with side effects taught. Patient and son Robinson verbalized understanding. IV removed with catheter intact. Pressure dressing applied. Patient left via wheelchair to private vehicle.
[2020-02-12 15:32] VITALS: BP 98/64; PULSE 71; RESP 18; TEMP 36.4; O2SAT 97
--- NOTE | 2020-02-12 16:25 | PM.DCS ---
Discharge Providers Date of Admission: 02/08/20 15:26 Date of Discharge: February 12, 2020 Attending Provider at Admission: Christy Dejesus MD Attending Provider at Discharge: Christy Dejesus MD Primary Care Provider: Camden Fletcher MD Diagnoses at Discharge Discharge Diagnosis (1) Acute exacerbation of congestive heart failure: Status: Acute (2) Abdominal pain: Status: Acute Qualifiers: Abdominal location: generalized Qualified Code(s): R10.84 - Generalized abdominal pain (3) Sleep apnea: Status: Acute Problem details: Patient is on CPAP. Qualifiers: Sleep apnea type: obstructive Qualified Code(s): G47.33 - Obstructive sleep apnea (adult) (pediatric) (4) GERD (gastroesophageal reflux disease): Status: Acute Qualifiers: Esophagitis presence: esophagitis presence not specified Qualified Code(s): K21.9 - Gastro-esophageal reflux disease without esophagitis (5) Dilated cardiomyopathy: Status: Acute (6) Hyperkalemia: Status: Acute (7) Pulmonary embolism: Status: Acute Reason for Visit Reason for Visit: DEHYDRATION, ABDOMEN DISTENTION Hospital Course Discharge Summary: Phuong Maya is a 79 year old female 79 year old female with a past medical history of severe systolic congestive heart failure with last known EF 15%, hypertension and chronic kidney disease h/o recurrent admissions for gastroenteritis, chronic diarrhea and acue decompensated CHF. Presented to ER on 02/07 with with c/o abdominal discomfort, nausea, vomiting and generalized weakness. CT CAP was perfromed upon admission which showed severe rigth heart failure with enlargement of right chambers, new since previous. Marked interval enlaregemnt of left side chambers. Nonocclusive thrombus suspected in the proximal pulmonary arteries for which she was started on a/c with lovenox, transitioned to po eliquis which she tolerated well. Labs notable for elevated BNP >46824, cr at baseline, elevated lactate 3.2, troponin without significant deltas. She was diagnosed also with acute on chronic sytsolic CHF and received iv diuresis with lasix, changed to po lasix on discharge at 40mg po BID. she had transient hypotension on 02/10 for which she was closely monitored. She remained asymtpomatic and then eventually being discharged today after returning to baseline state of health. Underwent 02 evaluation prior to discharge and qualified. Physical Exam Narrative: EXAM NARRATIVE: GEN: Awake, alert and oriented, no acute distress CVS: S1S2 N RS: CTA B/L Abd: Soft, nt/nd , bs+ STRAIGHTENER AND ALIGNER: no focal neuro deficits EXT: resolved Le edema Discharge Data Data Completed and Pending: Completed Studies During Hospitalization Category Date Time Status CT angio chest w abd pel w con Stat Cat Scan 02/08/20 12:27 Completed XR KUB portable 7 [id number] Stat Exams 02/08/20 11:46 Completed XR chest 1V betzaida ble [id number] Stat Exams 02/08/20 11:46 [place] [id number] Routin e Ultrasound 02/11/20 11:16 Completed Labs from last 24 hours 02/12/20 02/12/20 04:48 04:48 WBC 5.1 RBC 4.72 Hgb 13.0 Hct 41.3 MCV 87.5 MCH 27.5 L MCHC 31.5 RDW 18.7 H Plt Count 198 MPV 10.3 Neut % (Auto) 61.3 Lymph % (Auto) 23.8 [place] % (Auto) 8.8 Eos % (Auto) 4.9 Baso % (Auto) 0.8 Neut # (Auto) 3.14 Lymph # (Auto) 1.2 [place] # (Auto) 0.5 Eos # (Auto) 0.3 Baso # (Auto) 0.0 Nucleated RBC % (a uto) 0 Nucleated RBCs # 0.0 Sodium 134 L Potassium 3.6 Chloride 101 Carbon Dioxide 22 Anion Gap 14.6 BUN 14 Creatinine 0.9 GFR Calculation Not Reportable Glucose 106 Calculated Osmolal ity 279 L Calcium 9.0 Total Bilirubin 1.7 H AST 25 ALT 20 Alkaline Phosphata se 73 Total Protein 5.4 L Albumin 3.3 L Globulin 2.1 Vitals: Last Vital Signs Temp 97.5 F L 02/12/20 15:32 Pulse 71 02/12/20 15:32 Resp 18 02/12/20 15:32 BP 98/64 02/12/20 15:32 Pulse Ox 97 02/12/20 15:32 Discharge Plan Discharge Patient Disposition: Home Health Service Condition: Stable Prescriptions: New Eliquis 5 mg Tablet See Rx Instructions .ROUTE .COMPLEX Qty: 60 RF: 0 furosemide 40 mg Tablet 40 mg PO BID@ Qty: 0 RF: 0 Continued levothyroxine 75 mcg tablet 75 mcg PO DAILY RF: 0 aspirin [Adult Low Dose Aspirin] 81 mg tablet,delayed release (DR/EC) 81 mg PO DAILY RF: 0 cholecalciferol (vitamin D3) 25 mcg (1,000 unit) capsule 25 mcg PO DAILY RF: 0 Probiotic 3 billion cell capsule See Rx Instructions .ROUTE .COMPLEX RF: 0 escitalopram oxalate 5 mg tablet 10 mg PO DAILY RF: 0 Entresto 24-26 mg tablet 1 tab PO DAILY Qty: 30 RF: 5 carvedilol 3.125 mg tablet 3.125 mg PO BID 90 Days Qty: 180 RF: 3 ondansetron 4 mg tablet,disintegrating 4 mg PO Q6H PRN (Reason: nausea and vomiting) Qty: 10 RF: 1 donepezil 5 mg Tablet 5 mg PO DAILY RF: 0 atorvastatin 10 mg Tablet 5 mg PO DAILY RF: 0 alprazolam 0.25 mg tablet 0.25 mg PO BID PRN (Reason: Anxiety) RF: 0 PNV cmb#95-ferrous fumarate-FA [] 28 mg iron- 800 mcg Tablet 1 tab PO DAILY RF: 0 potassium chloride 10 mEq tablet extended release 20 meq PO BID RF: 0 Discontinued furosemide [Lasix] 20 mg tablet 20 mg PO DIRECTED RF: 0 Discharge Orders: Discharge Order (Routine); Ordered 02/12/20 Ordered By: Christy Dejesus Other Ambulatory Orders: DME: Oxygen (Order) Location: None Selected Ordered By: Christy Dejesus DME: Oxygen (Order) Location: None Selected Ordered By: Christy Dejesus Referrals: [facility] [Outside] Camden Fletcher MD [Primary Care Provider] - 02/16/20 2:00 pm (hospital discharge follow up ) Discharge Diet: Cardiac, Low Salt and Low Cholesterol Discharge Activity: Resume usual activity Patient Instructions: Furosemide (By mouth), Apixaban (By mouth), Heart Failure (DC), Dilated Cardiomyopathy (GEN), CHF Stoplight Discharge Date/Time: 02/12/20 15:34 Discharge Attestations Time Spent in Discharge Care*: greater than 30 min Specific Discharge Activities: Specific discharge activities: educating patient and educating and/or supporting family/caregiver Status at Discharge: Cognitive status at discharge: cognitively intact, Behavioral status at discharge: cooperative, Quality Metrics Clinical Quality Measures During this hospital stay, did patient experience: VTE Contraindication to Overlap Therapy: Overlap therapy prescribed VTE Discharge Education: Education about anticoagulant therapy/Care Notes given Deep Vein Thrombosis/Pulmonary Embolism Present on Admission: Yes Coding Level of Care Code Acute Principal Investigator for Chg Fwd Diagnoses Acute exacerbation of congestive heart failure I50.9 Abdominal pain R10.84 Abdominal location: generalized Sleep apnea G47.33 Sleep apnea type: obstructive GERD (gastroesophageal reflux disease) K21.9 Esophagitis presence: esophagitis presence not specified Dilated cardiomyopathy I42.0 Hyperkalemia E87.5 Pulmonary embolism I26.99
== END 2020-02-12 15:34 | disposition home health service (06) | DRG 175 ==
LOC: ER 14:51 → MEDSURG 15:55
PROVIDERS: Family Medicine; Hospitalist; Admitting Provider Student in an Organized Health Care Education/Training Program; PCP Family Medicine; Visit Provider Student in an Organized Health Care Education/Training Program
DX: I26.99 Other pulmonary embolism without acute cor pulmonale (principal); I50.23 Acute on chronic systolic (congestive) heart failure; I13.0 Hypertensive heart and chronic kidney disease with heart failure and stage 1 through stage 4 chronic kidney disease, or unspecified chronic kidney disease; I42.0 Dilated cardiomyopathy; G47.33 Obstructive sleep apnea (adult) (pediatric); E87.5 Hyperkalemia; K21.9 Gastro-esophageal reflux disease without esophagitis; N18.9 Chronic kidney disease, unspecified; K52.9 Noninfective gastroenteritis and colitis, unspecified; Z79.82 Long term (current) use of aspirin; Z20.828 Contact with and (suspected) exposure to other viral communicable diseases; M79.7 Fibromyalgia; E03.9 Hypothyroidism, unspecified; Z95.5 Presence of coronary angioplasty implant and graft
CPT/HCPCS: 12345; 36415; 71045; 71275; 74018; 74177; 80053; 81001; 82550; 82728; 83605; 83615; 83735; 83880; 84145; 84439; 84443; 84481; 84484; 85025; 85378; 85384; 85730; 86140; 87426; 87493; 87635; 93005; 93970; 94762; 96372; 96375; 99283; J1644; J1650; J1940; J2405; Q9967

== ENCOUNTER → 2020-03-30 14:53 | Outpatient (BNVA) | payer MEDICARE, OTHER, SELFPAY | PROVIDERS: PCP Family Medicine; Visit Provider Internal Medicine Cardiovascular Disease | DX: I50.23 Acute on chronic systolic (congestive) heart failure (principal); I26.99 Other pulmonary embolism without acute cor pulmonale | CPT/HCPCS: 80048; 85025 ==